=== PATIENT | female | born 1980 | race Hispanic/Latino ===

== ENCOUNTER 2019-08-18 10:40 | Emergency (ER) | payer MEDICARE ==
[~2019-08-18] VITALS: Ht 157.5 cm; Wt 65.8 kg
[~2019-08-18 10:40] MED LIST: CYCLOBENZAPRINE10 MG PO; Clobetasol 0.05% Cream 45GMS TOP; DOXYCLINE PO; DOXYCYCLINE HY100 MG PO; FLAGYL250 MG PO; KEPPRA500 MG PO; LEVAQUIN500 MG PO; LIBRAX CAPSULE1 EACH PO; PREDNISONE20 MG PO; PROMETHAZINE12.5 M1 PO; SULFAMETHOXAZO1 EAC1 PO; TYLENOL WITH C1 EACH PO; ULTRAM50 MG PO; VSL#3 CAPSULE1 EACH PO; ZOFRAN8 MG PO
[2019-08-18] MEDS ORDERED: SODIUM CHLORIDE 0.9% 1000ML 1,000 ML IV STA (11:03)
[2019-08-18] MEDS ORDERED: ONDANSETRON HCL INJ 2MG/ML 2ML 2 MG/ML VIAL IV STA (11:03)
[2019-08-18] MEDS ORDERED: MORPHINE SULFATE INJ 4 MG/ML INJ 1ML IV STA (11:56)
--- OUTSIDE RECORDS SUMMARY | 2019-08-18 12:10 | XMS REPORT ---
[facility] Address Unknown Phone Unavailable Care Team Providers Care Database Engineer Name Role Phone JOSE ROBERTO MCCANN Unavailable Unavailable ACRLOS PHILLIP Unavailable Unavailable JEAN MARIE SERRANO Unavailable Unavailable Carrington MICHEL Unavailable Unavailable PHAM RETANA Unavailable Unavailable Isaruo YANG Unavailable Unavailable OMER MONAE Unavailable Unavailable STORM LAM Unavailable Unavailable DUDLEY HAMPTON Unavailable Unavailable Jose ARNOLD Unavailable Unavailable Patrick PRESTON Unavailable Unavailable ANA M, ARIF Unavailable Unavailable Payers Payer Name Policy Type Policy Number Effective Date Expiration Date Problems This patient has no known problems. Allergies, Adverse Reactions, Alerts Allergy Name Allergy Type Status Severity Reaction(s) Onset Date Inactive Date Treating Clinician Comments mesalamine DA Active MO 2015-05-05 00:00:00 Medications This patient has no known medications. Results Test Description Test Time Test Comments Text Results Atomic Results Result Comments DUODENUM,BIOPSY 2019-01-23 15:50:00 RUN DATE: 01/23/19 [place] - [facility] PAGE 1 RUN TIME: 1550 Specimen Inquiry RUN USER: INTERFACE PATIENT: TANYA SANDERSON LOC: ALEX U #: [id number] AGE/SX: 38/F ROOM: [facility] RE01/17/19REG DR: Anup Wagoner MD : 81 BED: A DIS: 01/22/19 STATUS: DIS IN TLOC: SPEC #: [id number] RECD: 01/20/19 STATUS: [facility] RE #: [id number] JAYLAN: 01/20/19 DR: Andrew Hassan MD ENTERED: 01/20/195 SP TYPE: BX DUODEN OTHR DR: Self Referred Joann Larson MDORDERED: GROSS COPIES TO: Self Referred Andrew Hassan MD [address] [place] [address] Joann Larson MD [address] [place] [address] PROCEDURES: GROSS (01/21/19-1300) TISSUES: 1. DUODENUM, NOS - COLD BX 2. GASTRIC CORPUS - COLD BX 3. ILEUM, NOS - TERMINAL COLD BX 4. RECTUM, NOS - COLD BX CLINICAL HISTORY COLLECTION DATE: 01/20/19 ANEMIA COMMENT A giemsa stain was prepared on the second spe [facility] and is negative for Helicobacter Pylori. The control stains appropriately. An immunostain for Helicobacter Pylori was prepared at [facility] and interpreted at [facility]. The control stains appropriately. The specimen is negative for Helicobacter Pylori by immunostain. FINAL DIAGNOSIS Duodenum, biopsy: DUODENAL MUCOSA, NO PATHOLOGIC ALTERATION Gastric biopsy: CHRONIC ACTIVE GASTRITIS CONTINUED ON NEXT PAGE RU N DATE: 01/23/19 [place] - Lab PAGE 2 RUN TIME: 1550 Specimen Inquiry RUN USER: INTERFACE SPEC #: [id number] PATIENT: TANYA SANDERSON #[id number] (Continued) FINAL DIAGNOSIS (Continued) NO INTESTINAL METAPLASIA SEEN NEGATIVE FOR HELICOBACTER PYLORI NEGATIVE FOR MALIGNANCY Terminal ileum, biopsy: SMALL INTESTINAL MUCOSA, NO PATHOLOGIC ALTERATION Rectum, biopsy: GRANULATION TISSUE WITH ACUTE AND CHRONIC INFLAMMATION, COMPATIBLE WITH ULCER SITE NO MUCOSA IDENTIFIED NEGATIVE FOR MALIGNANCY DMW/sm D (4) [id number], [id number], [id number] MACROSCOPIC The first specimen is received in formalin, labeled with the patient's name, identified as "duodenum cold bx", and consists of munoz-pink biopsy tissue measuring 0.4 cm in aggregate, submit robert as (1). The second specimen is received in formalin, labeled with the patient's name, identified as "gastric cold bx", and consists of light pink- munoz biopsy tissue measuring 0.35 cm in aggregate, submitted as (2) for H E and Giemsa stains. The third specimen is received in formalin, labeled with the patient's name, identified as "terminal ileum cold bx", and consists of munoz biopsy tissue measuring 0.45 cm in aggregate, submitted as (3). The fourth specimen is received in formalin, labeled with the patient's name, identified as "rectum cold bx", and consists of pink-munoz biopsy tissue measuring 0.35 cm in aggregate, submitted as (4). GROSS PERFORMED AT [facility] [address] [place] [address] [id number] [phone])[phone] MICROSCOPIC All of the stains, including any controls performed, stain appropriately. MICROSCOPIC PERFORMED AT [facility] CONTINUED ON NEXT PAGE RUN DATE: 01/23/19 [place] - Lab PAGE 3 RUN TIME: 1550 Specimen Inquiry RUN USER: INTERFACE SPEC #: [id number] PATIENT: TANYA SANDERSON #[id number] (Continued) MICROSCOPIC (Continued) [facility] [address] [place] [address] [phone])[phone] PERFORM[address] SITE Diagnosis performed at: [facility], [place] [place] [address] Signed SIGNATURE ON FILE Leticia Smith MD 01/23/19 3563 END OF REPORT CELIAC DISEASE PANEL 2019-01-23 14:13:00 IMMUNOGLOBULIN A (test code=IGA) 281 mg/dL 87-352 Performed At: [facility] [id number] Torre MD Ph:[phone] At: [facility] [id number] Mccurdy MD Ph:[phone] TISSUE TRANSGLUTAMINASE IGA (test code=TTGIGAAB) <2 U/mL 0-3 Negative 0 - 3 Weak Positive 4 - 10 Positive >10 Tissue Transglutaminase (tTG) has been identified as the endomysial antigen. Studies have demonstr- ated that endomysial IgA antibodies have over 99% specificity for gluten sensitive enteropathy. AB ENDOMYSIAL IGA (test code=ENDOMAAB) Negative Negative TISSUE TRANSGLUTAMINASE IGG (test code=TTGIGGAB) <2 U/mL 0-5 Negative 0 - 5 Weak Positive 6 - 9 Positive >9 GLIADIN ANTIBODY, IGG (test code=GLIAB) 6 units 0-19 Negative 0 - 19 Weak Positive 20 - 30 Moderate to Strong Positive >30 GLIADIN ANTIBODY, IGA (test code=GLIAABA) 4 units 0-19 Negative 0 - 19 Weak Positive 20 - 30 Moderate to Strong Positive >30 PER RN LAILA RUGGIERO LATER [email or web address] 01/19/19 0629CBC W/AUTO [id number] 13:51:00* Test Item Value Reference Range Comments WHITE BLOOD CELL (test code=WBC) 7.1 K/mm3 4.5-12.5 RED BLOOD CELL (test code=RBC) 4.57 mill/mm3 3.7-5.2 HEMOGLOBIN (test code=HGB) 9.1 gram/dL 11.5-15.5 HEMATOCRIT (test code=HCT) 33.4 % 36.0-46.0 MEAN CELL VOLUME (test code=MCV) 73.1 fL 80-98 MEAN CELL HGB (test code=MCH) 19.9 picogram 27.0-33.0 MEAN CELL HGB CONCETRATION (test code=MCHC) 27.2 gram/dL 33.0-36.0 RED CELL DISTRIBUTION WIDTH (test code=RDW) TEST NOT PERFORMED % 11.6-16.2 RED CELL DISTRIBUTION WIDTH SD (test code=RDW-SD) TEST NOT PERFORMED fL 37.0-51.0 PLATELET COUNT (test code=PLT) 317 K/mm3 150-450 MEAN PLATELET VOLUME (test code=MPV) 10.3 fL 6.7-11.0 NEUTROPHIL % (test code=NT%) 64.2 % 39.0-69.0 IMMATURE GRANULOCYTE % (test code=IG%) 0.3 % 0.0-5.0 LYMPHOCYTE % (test code=LY%) 15.4 % 25.0-55.0 MONOCYTE % (test code=MO%) 11.3 % 0.0-10.0 EOSINOPHIL % (test code=EO%) 7.8 % 0.0-5.0 BASOPHIL % (test code=BA%) 1.0 % 0.0-1.0 NUCLEATED RBC % (test code=NRBC%) 0.0 % 0-0 NEUTROPHIL # (test code=NT#) 4.53 K/mm3 1.8-7.7 IMMATURE GRANULOCYTE # (test code=IG#) 0.02 x10 3/uL 0-0.03 LYMPHOCYTE # (test code=LY#) 1.09 K/mm3 1.0-5.0 MONOCYTE # (test code=MO#) 0.80 K/mm3 0-0.8 EOSINOPHIL # (test code=EO#) 0.55 K/mm3 0.0-0.5 BASOPHIL # (test code=BA#) 0.07 K/mm3 0.0-0.2 NUCLEATED RBC # (test code=NRBC#) 0.00 K/mm3 0.0-0.1 MANUAL DIFF REQUIRED (test code=MDIFF) NO, ONLY SCAN NEEDED DIFFERENTIAL [id number] 13:51:00* Test Item Value Reference Range Comments STAIN ACCEPTABILITY (test code=STN ACCEPTABLE) STAIN ACCEPTABLE POLYCHROMASIA (test code=POLC) 3+ HYPOCHROMIA (test code=HYPO) 1+ POIKILOCYTOSIS (test code=POIK) 1+ ANISOCYTOSIS (test code=ANISO) 2+ MICROCYTOSIS (test code=MICR) 1+ ELLIPTOCYTES (test code=ELL) 1+ PLATELET ESTIMATE (test code=PLTEST) ADEQUATE PLATELET MORPHOLOGY (test code=PLTMORPH) SIZE VARIABLE CBC W/AUTO [id number] 12:21:00* Test Item Value Reference Range Comments WHITE BLOOD CELL (test code=WBC) 7.1 K/mm3 4.5-12.5 RED BLOOD CELL (test code=RBC) 4.57 mill/mm3 3.7-5.2 HEMOGLOBIN (test code=HGB) 9.1 gram/dL 11.5-15.5 HEMATOCRIT (test code=HCT) 33.4 % 36.0-46.0 MEAN CELL VOLUME (test code=MCV) 73.1 fL 80-98 MEAN CELL HGB (test code=MCH) 19.9 picogram 27.0-33.0 MEAN CELL HGB CONCETRATION (test code=MCHC) 27.2 gram/dL 33.0-36.0 RED CELL DISTRIBUTION WIDTH (test code=RDW) TEST NOT PERFORMED % 11.6-16.2 RED CELL DISTRIBUTION WIDTH SD (test code=RDW-SD) TEST NOT PERFORMED fL 37.0-51.0 PLATELET COUNT (test code=PLT) 317 K/mm3 150-450 MEAN PLATELET VOLUME (test code=MPV) 10.3 fL 6.7-11.0 NEUTROPHIL % (test code=NT%) 64.2 % 39.0-69.0 IMMATURE GRANULOCYTE % (test code=IG%) 0.3 % 0.0-5.0 LYMPHOCYTE % (test code=LY%) 15.4 % 25.0-55.0 MONOCYTE % (test code=MO%) 11.3 % 0.0-10.0 EOSINOPHIL % (test code=EO%) 7.8 % 0.0-5.0 BASOPHIL % (test code=BA%) 1.0 % 0.0-1.0 NUCLEATED RBC % (test code=NRBC%) 0.0 % 0-0 NEUTROPHIL # (test code=NT#) 4.53 K/mm3 1.8-7.7 IMMATURE GRANULOCYTE # (test code=IG#) 0.02 x10 3/uL 0-0.03 LYMPHOCYTE # (test code=LY#) 1.09 K/mm3 1.0-5.0 MONOCYTE # (test code=MO#) 0.80 K/mm3 0-0.8 EOSINOPHIL # (test code=EO#) 0.55 K/mm3 0.0-0.5 BASOPHIL # (test code=BA#) 0.07 K/mm3 0.0-0.2 NUCLEATED RBC # (test code=NRBC#) 0.00 K/mm3 0.0-0.1 MANUAL DIFF REQUIRED (test code=MDIFF) NO, ONLY SCAN NEEDED DIFFERENTIAL [id number] 12:21:00* Test Item Value Reference Range Comments STAIN ACCEPTABILITY (test code=STN ACCEPTABLE) CABOT RINGS (test code=CAB) MORPHOLOGY COMMENT (test code=MOC) PLATELET ESTIMATE (test code=PLTEST) PLATELET MORPHOLOGY (test code=PLTMORPH) CBC W/AUTO [id number] 12:21:00* Test Item Value Reference Range Comments WHITE BLOOD CELL (test code=WBC) 7.1 K/mm3 4.5-12.5 RED BLOOD CELL (test code=RBC) 4.57 mill/mm3 3.7-5.2 HEMOGLOBIN (test code=HGB) 9.1 gram/dL 11.5-15.5 HEMATOCRIT (test code=HCT) 33.4 % 36.0-46.0 MEAN CELL VOLUME (test code=MCV) 73.1 fL 80-98 MEAN CELL HGB (test code=MCH) 19.9 picogram 27.0-33.0 MEAN CELL HGB CONCETRATION (test code=MCHC) 27.2 gram/dL 33.0-36.0 RED CELL DISTRIBUTION WIDTH (test code=RDW) TEST NOT PERFORMED % 11.6-16.2 RED CELL DISTRIBUTION WIDTH SD (test code=RDW-SD) TEST NOT PERFORMED fL 37.0-51.0 PLATELET COUNT (test code=PLT) 317 K/mm3 150-450 MEAN PLATELET VOLUME (test code=MPV) 10.3 fL 6.7-11.0 NEUTROPHIL % (test code=NT%) 64.2 % 39.0-69.0 IMMATURE GRANULOCYTE % (test code=IG%) 0.3 % 0.0-5.0 LYMPHOCYTE % (test code=LY%) 15.4 % 25.0-55.0 MONOCYTE % (test code=MO%) 11.3 % 0.0-10.0 EOSINOPHIL % (test code=EO%) 7.8 % 0.0-5.0 BASOPHIL % (test code=BA%) 1.0 % 0.0-1.0 NUCLEATED RBC % (test code=NRBC%) 0.0 % 0-0 NEUTROPHIL # (test code=NT#) 4.53 K/mm3 1.8-7.7 IMMATURE GRANULOCYTE # (test code=IG#) 0.02 x10 3/uL 0-0.03 LYMPHOCYTE # (test code=LY#) 1.09 K/mm3 1.0-5.0 MONOCYTE # (test code=MO#) 0.80 K/mm3 0-0.8 EOSINOPHIL # (test code=EO#) 0.55 K/mm3 0.0-0.5 BASOPHIL # (test code=BA#) 0.07 K/mm3 0.0-0.2 NUCLEATED RBC # (test code=NRBC#) 0.00 K/mm3 0.0-0.1 MANUAL DIFF REQUIRED (test code=MDIFF) NO, ONLY SCAN NEEDED DIFFERENTIAL [id number] 12:21:00* Test Item Value Reference Range Comments STAIN ACCEPTABILITY (test code=STN ACCEPTABLE) CABOT RINGS (test code=CAB) MORPHOLOGY COMMENT (test code=MOC) PLATELET ESTIMATE (test code=PLTEST) PLATELET MORPHOLOGY (test code=PLTMORPH) CBC W/AUTO [id number] 12:21:00* Test Item Value Reference Range Comments WHITE BLOOD CELL (test code=WBC) 7.1 K/mm3 4.5-12.5 RED BLOOD CELL (test code=RBC) 4.57 mill/mm3 3.7-5.2 HEMOGLOBIN (test code=HGB) 9.1 gram/dL 11.5-15.5 HEMATOCRIT (test code=HCT) 33.4 % 36.0-46.0 MEAN CELL VOLUME (test code=MCV) 73.1 fL 80-98 MEAN CELL HGB (test code=MCH) 19.9 picogram 27.0-33.0 MEAN CELL HGB CONCETRATION (test code=MCHC) 27.2 gram/dL 33.0-36.0 RED CELL DISTRIBUTION WIDTH (test code=RDW) TEST NOT PERFORMED % 11.6-16.2 RED CELL DISTRIBUTION WIDTH SD (test code=RDW-SD) TEST NOT PERFORMED fL 37.0-51.0 PLATELET COUNT (test code=PLT) 317 K/mm3 150-450 MEAN PLATELET VOLUME (test code=MPV) 10.3 fL 6.7-11.0 NEUTROPHIL % (test code=NT%) 64.2 % 39.0-69.0 IMMATURE GRANULOCYTE % (test code=IG%) 0.3 % 0.0-5.0 LYMPHOCYTE % (test code=LY%) 15.4 % 25.0-55.0 MONOCYTE % (test code=MO%) 11.3 % 0.0-10.0 EOSINOPHIL % (test code=EO%) 7.8 % 0.0-5.0 BASOPHIL % (test code=BA%) 1.0 % 0.0-1.0 NUCLEATED RBC % (test code=NRBC%) 0.0 % 0-0 NEUTROPHIL # (test code=NT#) 4.53 K/mm3 1.8-7.7 IMMATURE GRANULOCYTE # (test code=IG#) 0.02 x10 3/uL 0-0.03 LYMPHOCYTE # (test code=LY#) 1.09 K/mm3 1.0-5.0 MONOCYTE # (test code=MO#) 0.80 K/mm3 0-0.8 EOSINOPHIL # (test code=EO#) 0.55 K/mm3 0.0-0.5 BASOPHIL # (test code=BA#) 0.07 K/mm3 0.0-0.2 NUCLEATED RBC # (test code=NRBC#) 0.00 K/mm3 0.0-0.1 MANUAL DIFF REQUIRED (test code=MDIFF) NO, ONLY SCAN NEEDED DIFFERENTIAL [id number] 12:21:00* Test Item Value Reference Range Comments STAIN ACCEPTABILITY (test code=STN ACCEPTABLE) MORPHOLOGY COMMENT (test code=MOC) PLATELET ESTIMATE (test code=PLTEST) PLATELET MORPHOLOGY (test code=PLTMORPH) CBC W/AUTO [id number] 12:21:00* Test Item Value Reference Range Comments WHITE BLOOD CELL (test code=WBC) 7.1 K/mm3 4.5-12.5 RED BLOOD CELL (test code=RBC) 4.57 mill/mm3 3.7-5.2 HEMOGLOBIN (test code=HGB) 9.1 gram/dL 11.5-15.5 HEMATOCRIT (test code=HCT) 33.4 % 36.0-46.0 MEAN CELL VOLUME (test code=MCV) 73.1 fL 80-98 MEAN CELL HGB (test code=MCH) 19.9 picogram 27.0-33.0 MEAN CELL HGB CONCETRATION (test code=MCHC) 27.2 gram/dL 33.0-36.0 RED CELL DISTRIBUTION WIDTH (test code=RDW) TEST NOT PERFORMED % 11.6-16.2 RED CELL DISTRIBUTION WIDTH SD (test code=RDW-SD) TEST NOT PERFORMED fL 37.0-51.0 PLATELET COUNT (test code=PLT) 317 K/mm3 150-450 MEAN PLATELET VOLUME (test code=MPV) 10.3 fL 6.7-11.0 NEUTROPHIL % (test code=NT%) 64.2 % 39.0-69.0 IMMATURE GRANULOCYTE % (test code=IG%) 0.3 % 0.0-5.0 LYMPHOCYTE % (test code=LY%) 15.4 % 25.0-55.0 MONOCYTE % (test code=MO%) 11.3 % 0.0-10.0 EOSINOPHIL % (test code=EO%) 7.8 % 0.0-5.0 BASOPHIL % (test code=BA%) 1.0 % 0.0-1.0 NUCLEATED RBC % (test code=NRBC%) 0.0 % 0-0 NEUTROPHIL # (test code=NT#) 4.53 K/mm3 1.8-7.7 IMMATURE GRANULOCYTE # (test code=IG#) 0.02 x10 3/uL 0-0.03 LYMPHOCYTE # (test code=LY#) 1.09 K/mm3 1.0-5.0 MONOCYTE # (test code=MO#) 0.80 K/mm3 0-0.8 EOSINOPHIL # (test code=EO#) 0.55 K/mm3 0.0-0.5 BASOPHIL # (test code=BA#) 0.07 K/mm3 0.0-0.2 NUCLEATED RBC # (test code=NRBC#) 0.00 K/mm3 0.0-0.1 MANUAL DIFF REQUIRED (test code=MDIFF) NO, ONLY SCAN NEEDED DIFFERENTIAL [id number] 12:21:00* Test Item Value Reference Range Comments STAIN ACCEPTABILITY (test code=STN ACCEPTABLE) CABOT RINGS (test code=CAB) MORPHOLOGY COMMENT (test code=MOC) PLATELET ESTIMATE (test code=PLTEST) PLATELET MORPHOLOGY (test code=PLTMORPH) CBC W/AUTO [id number] 10:03:00* Test Item Value Reference Range Comments WHITE BLOOD CELL (test code=WBC) 8.2 K/mm3 4.5-12.5 RED BLOOD CELL (test code=RBC) 4.33 mill/mm3 3.7-5.2 HEMOGLOBIN (test code=HGB) 8.5 gram/dL 11.5-15.5 HEMATOCRIT (test code=HCT) 31.4 % 36.0-46.0 MEAN CELL VOLUME (test code=MCV) 72.5 fL 80-98 MEAN CELL HGB (test code=MCH) 19.6 picogram 27.0-33.0 MEAN CELL HGB CONCETRATION (test code=MCHC) 27.1 gram/dL 33.0-36.0 RED CELL DISTRIBUTION WIDTH (test code=RDW) TEST NOT PERFORMED % 11.6-16.2 RED CELL DISTRIBUTION WIDTH SD (test code=RDW-SD) TEST NOT PERFORMED fL 37.0-51.0 PLATELET COUNT (test code=PLT) 326 K/mm3 150-450 MEAN PLATELET VOLUME (test code=MPV) 9.8 fL 6.7-11.0 NEUTROPHIL % (test code=NT%) 68.3 % 39.0-69.0 IMMATURE GRANULOCYTE % (test code=IG%) 0.4 % 0.0-5.0 LYMPHOCYTE % (test code=LY%) 14.5 % 25.0-55.0 MONOCYTE % (test code=MO%) 9.6 % 0.0-10.0 EOSINOPHIL % (test code=EO%) 6.3 % 0.0-5.0 BASOPHIL % (test code=BA%) 0.9 % 0.0-1.0 NUCLEATED RBC % (test code=NRBC%) 0.0 % 0-0 NEUTROPHIL # (test code=NT#) 5.59 K/mm3 1.8-7.7 IMMATURE GRANULOCYTE # (test code=IG#) 0.03 x10 3/uL 0-0.03 LYMPHOCYTE # (test code=LY#) 1.19 K/mm3 1.0-5.0 MONOCYTE # (test code=MO#) 0.79 K/mm3 0-0.8 EOSINOPHIL # (test code=EO#) 0.52 K/mm3 0.0-0.5 BASOPHIL # (test code=BA#) 0.07 K/mm3 0.0-0.2 NUCLEATED RBC # (test code=NRBC#) 0.00 K/mm3 0.0-0.1 MANUAL DIFF REQUIRED (test code=MDIFF) NO, ONLY SCAN NEEDED DIFFERENTIAL [id number] 10:03:00* Test Item Value Reference Range Comments STAIN ACCEPTABILITY (test code=STN ACCEPTABLE) STAIN ACCEPTABLE POIKILOCYTOSIS (test code=POIK) 2+ ANISOCYTOSIS (test code=ANISO) 1+ MICROCYTOSIS (test code=MICR) 1+ TEAR DROP CELLS (test code=TEAR) 1+ ELLIPTOCYTES (test code=ELL) 1+ PLATELET ESTIMATE (test code=PLTEST) ADEQUATE PLATELET MORPHOLOGY (test code=PLTMORPH) APPEAR LARGE COMPREHENSIVE METABOLIC [id number] 09:59:00* Test Item Value Reference Range Comments SODIUM (test code=NA) 138 mmol/L 136-145 POTASSIUM (test code=K) 3.8 mmol/L 3.5-5.1 CHLORIDE (test code=CL) 107.0 mmol/L 98-107 CARBON DIOXIDE (test code=CO2) 24.0 mmol/L 21-32 ANION GAP (test code=GAP) 10.8 10-20 GLUCOSE (test code=GLU) 92 mg/dL 74-106 BLOOD UREA NITROGEN (test code=BUN) 7 mg/dL 7-18 GLOMERULAR FILTRATION RATE (test code=GFR) > 60 mL/min >=60 Estimated GFR by using Modified MDRD formula.Chronic kidney disease is defined as either kidney damageor GFR <60 mL/min/1.73 m2 for >3 months. CREATININE (test code=CREAT) 0.70 mg/dL 0.55-1.02 Note change in reference range due to change in reagent. BUN/CREATININE RATIO (test code=BUN/CREA) 10.0 10-20 TOTAL PROTEIN (test code=PROT) 7.3 gram/dL 6.4-8.2 ALBUMIN (test code=ALB) 3.0 g/dL 3.4-5.0 GLOBULIN (test code=GLOB) 4.3 gram/dL 2.7-4.2 ALBUMIN/GLOBULIN RATIO (test code=A/G) 0.7 0.75-1.50 CALCIUM (test code=CA) 8.5 mg/dL 8.5-10.1 BILIRUBIN TOTAL (test code=BILT) 0.30 mg/dL 0.0-1.0 SGOT/AST (test code=AST) 13 IUnit/L 15-37 SGPT/ALT (test code=ALT) 10 IUnit/L 12-78 ALKALINE PHOSPHATASE TOTAL (test code=ALKP) 91 IUnit/L 45-117 Note change in reference range due to change in reagent. FE W/TOTAL IRON BINDING CAP.2019-01-21 09:59:00* Test Item Value Reference Range Comments SERUM IRON (test code=IRON) 15 ug/dL 50-175 TOTAL IRON BINDING CAPACITY (test code=TIBC) 416 mcg/dL 250-450 IRON SATURATION (test code=FESAT) 3.61 % 13-45 [id number] 09:59:00* Test Item Value Reference Range Comments FERRITIN (test code=NADINE) 4 ng/mL 8-388 COMPREHENSIVE METABOLIC [id number] 09:46:00* Test Item Value Reference Range Comments SODIUM (test code=NA) 138 mmol/L 136-145 POTASSIUM (test code=K) 3.8 mmol/L 3.5-5.1 CHLORIDE (test code=CL) 107.0 mmol/L 98-107 CARBON DIOXIDE (test code=CO2) mmol/L 21-32 ANION GAP (test code=GAP) 10-20 GLUCOSE (test code=GLU) mg/dL 74-106 BLOOD UREA NITROGEN (test code=BUN) mg/dL 7-18 GLOMERULAR FILTRATION RATE (test code=GFR) mL/min >=60 CREATININE (test code=CREAT) mg/dL 0.55-1.02 BUN/CREATININE RATIO (test code=BUN/CREA) 10-20 TOTAL PROTEIN (test code=PROT) gram/dL 6.4-8.2 ALBUMIN (test code=ALB) g/dL 3.4-5.0 GLOBULIN (test code=GLOB) gram/dL 2.7-4.2 ALBUMIN/GLOBULIN RATIO (test code=A/G) 0.75-1.50 CALCIUM (test code=CA) mg/dL 8.5-10.1 BILIRUBIN TOTAL (test code=BILT) mg/dL 0.0-1.0 SGOT/AST (test code=AST) IUnit/L 15-37 SGPT/ALT (test code=ALT) IUnit/L 12-78 ALKALINE PHOSPHATASE TOTAL (test code=ALKP) IUnit/L 45-117 FE W/TOTAL IRON BINDING CAP.2019-01-21 09:46:00* Test Item Value Reference Range Comments SERUM IRON (test code=IRON) ug/dL 50-175 TOTAL IRON BINDING CAPACITY (test code=TIBC) mcg/dL 250-450 IRON SATURATION (test code=FESAT) % 13-45 [id number] 09:46:00* Test Item Value Reference Range Comments FERRITIN (test code=NADINE) ng/mL 8-388 CBC W/AUTO [id number] 09:31:00* Test Item Value Reference Range Comments WHITE BLOOD CELL (test code=WBC) 8.2 K/mm3 4.5-12.5 RED BLOOD CELL (test code=RBC) 4.33 mill/mm3 3.7-5.2 HEMOGLOBIN (test code=HGB) 8.5 gram/dL 11.5-15.5 HEMATOCRIT (test code=HCT) 31.4 % 36.0-46.0 MEAN CELL VOLUME (test code=MCV) 72.5 fL 80-98 MEAN CELL HGB (test code=MCH) 19.6 picogram 27.0-33.0 MEAN CELL HGB CONCETRATION (test code=MCHC) 27.1 gram/dL 33.0-36.0 RED CELL DISTRIBUTION WIDTH (test code=RDW) TEST NOT PERFORMED % 11.6-16.2 RED CELL DISTRIBUTION WIDTH SD (test code=RDW-SD) TEST NOT PERFORMED fL 37.0-51.0 PLATELET COUNT (test code=PLT) 326 K/mm3 150-450 MEAN PLATELET VOLUME (test code=MPV) 9.8 fL 6.7-11.0 NEUTROPHIL % (test code=NT%) 68.3 % 39.0-69.0 IMMATURE GRANULOCYTE % (test code=IG%) 0.4 % 0.0-5.0 LYMPHOCYTE % (test code=LY%) 14.5 % 25.0-55.0 MONOCYTE % (test code=MO%) 9.6 % 0.0-10.0 EOSINOPHIL % (test code=EO%) 6.3 % 0.0-5.0 BASOPHIL % (test code=BA%) 0.9 % 0.0-1.0 NUCLEATED RBC % (test code=NRBC%) 0.0 % 0-0 NEUTROPHIL # (test code=NT#) 5.59 K/mm3 1.8-7.7 IMMATURE GRANULOCYTE # (test code=IG#) 0.03 x10 3/uL 0-0.03 LYMPHOCYTE # (test code=LY#) 1.19 K/mm3 1.0-5.0 MONOCYTE # (test code=MO#) 0.79 K/mm3 0-0.8 EOSINOPHIL # (test code=EO#) 0.52 K/mm3 0.0-0.5 BASOPHIL # (test code=BA#) 0.07 K/mm3 0.0-0.2 NUCLEATED RBC # (test code=NRBC#) 0.00 K/mm3 0.0-0.1 MANUAL DIFF REQUIRED (test code=MDIFF) NO, ONLY SCAN NEEDED DIFFERENTIAL [id number] 09:31:00* Test Item Value Reference Range Comments STAIN ACCEPTABILITY (test code=STN ACCEPTABLE) CABOT RINGS (test code=CAB) MORPHOLOGY COMMENT (test code=MOC) PLATELET ESTIMATE (test code=PLTEST) PLATELET MORPHOLOGY (test code=PLTMORPH) CBC W/AUTO [id number] 09:31:00* Test Item Value Reference Range Comments WHITE BLOOD CELL (test code=WBC) 8.2 K/mm3 4.5-12.5 RED BLOOD CELL (test code=RBC) 4.33 mill/mm3 3.7-5.2 HEMOGLOBIN (test code=HGB) 8.5 gram/dL 11.5-15.5 HEMATOCRIT (test code=HCT) 31.4 % 36.0-46.0 MEAN CELL VOLUME (test code=MCV) 72.5 fL 80-98 MEAN CELL HGB (test code=MCH) 19.6 picogram 27.0-33.0 MEAN CELL HGB CONCETRATION (test code=MCHC) 27.1 gram/dL 33.0-36.0 RED CELL DISTRIBUTION WIDTH (test code=RDW) TEST NOT PERFORMED % 11.6-16.2 RED CELL DISTRIBUTION WIDTH SD (test code=RDW-SD) TEST NOT PERFORMED fL 37.0-51.0 PLATELET COUNT (test code=PLT) 326 K/mm3 150-450 MEAN PLATELET VOLUME (test code=MPV) 9.8 fL 6.7-11.0 NEUTROPHIL % (test code=NT%) 68.3 % 39.0-69.0 IMMATURE GRANULOCYTE % (test code=IG%) 0.4 % 0.0-5.0 LYMPHOCYTE % (test code=LY%) 14.5 % 25.0-55.0 MONOCYTE % (test code=MO%) 9.6 % 0.0-10.0 EOSINOPHIL % (test code=EO%) 6.3 % 0.0-5.0 BASOPHIL % (test code=BA%) 0.9 % 0.0-1.0 NUCLEATED RBC % (test code=NRBC%) 0.0 % 0-0 NEUTROPHIL # (test code=NT#) 5.59 K/mm3 1.8-7.7 IMMATURE GRANULOCYTE # (test code=IG#) 0.03 x10 3/uL 0-0.03 LYMPHOCYTE # (test code=LY#) 1.19 K/mm3 1.0-5.0 MONOCYTE # (test code=MO#) 0.79 K/mm3 0-0.8 EOSINOPHIL # (test code=EO#) 0.52 K/mm3 0.0-0.5 BASOPHIL # (test code=BA#) 0.07 K/mm3 0.0-0.2 NUCLEATED RBC # (test code=NRBC#) 0.00 K/mm3 0.0-0.1 MANUAL DIFF REQUIRED (test code=MDIFF) NO, ONLY SCAN NEEDED DIFFERENTIAL [id number] 09:31:00* Test Item Value Reference Range Comments STAIN ACCEPTABILITY (test code=STN ACCEPTABLE) CABOT RINGS (test code=CAB) MORPHOLOGY COMMENT (test code=MOC) PLATELET ESTIMATE (test code=PLTEST) PLATELET MORPHOLOGY (test code=PLTMORPH) CBC W/AUTO [id number] 09:31:00* Test Item Value Reference Range Comments WHITE BLOOD CELL (test code=WBC) 8.2 K/mm3 4.5-12.5 RED BLOOD CELL (test code=RBC) 4.33 mill/mm3 3.7-5.2 HEMOGLOBIN (test code=HGB) 8.5 gram/dL 11.5-15.5 HEMATOCRIT (test code=HCT) 31.4 % 36.0-46.0 MEAN CELL VOLUME (test code=MCV) 72.5 fL 80-98 MEAN CELL HGB (test code=MCH) 19.6 picogram 27.0-33.0 MEAN CELL HGB CONCETRATION (test code=MCHC) 27.1 gram/dL 33.0-36.0 RED CELL DISTRIBUTION WIDTH (test code=RDW) TEST NOT PERFORMED % 11.6-16.2 RED CELL DISTRIBUTION WIDTH SD (test code=RDW-SD) TEST NOT PERFORMED fL 37.0-51.0 PLATELET COUNT (test code=PLT) 326 K/mm3 150-450 MEAN PLATELET VOLUME (test code=MPV) 9.8 fL 6.7-11.0 NEUTROPHIL % (test code=NT%) 68.3 % 39.0-69.0 IMMATURE GRANULOCYTE % (test code=IG%) 0.4 % 0.0-5.0 LYMPHOCYTE % (test code=LY%) 14.5 % 25.0-55.0 MONOCYTE % (test code=MO%) 9.6 % 0.0-10.0 EOSINOPHIL % (test code=EO%) 6.3 % 0.0-5.0 BASOPHIL % (test code=BA%) 0.9 % 0.0-1.0 NUCLEATED RBC % (test code=NRBC%) 0.0 % 0-0 NEUTROPHIL # (test code=NT#) 5.59 K/mm3 1.8-7.7 IMMATURE GRANULOCYTE # (test code=IG#) 0.03 x10 3/uL 0-0.03 LYMPHOCYTE # (test code=LY#) 1.19 K/mm3 1.0-5.0 MONOCYTE # (test code=MO#) 0.79 K/mm3 0-0.8 EOSINOPHIL # (test code=EO#) 0.52 K/mm3 0.0-0.5 BASOPHIL # (test code=BA#) 0.07 K/mm3 0.0-0.2 NUCLEATED RBC # (test code=NRBC#) 0.00 K/mm3 0.0-0.1 MANUAL DIFF REQUIRED (test code=MDIFF) NO, ONLY SCAN NEEDED DIFFERENTIAL [id number] 09:31:00* Test Item Value Reference Range Comments STAIN ACCEPTABILITY (test code=STN ACCEPTABLE) MORPHOLOGY COMMENT (test code=MOC) PLATELET ESTIMATE (test code=PLTEST) PLATELET MORPHOLOGY (test code=PLTMORPH) CBC W/AUTO [id number] 09:31:00* Test Item Value Reference Range Comments WHITE BLOOD CELL (test code=WBC) 8.2 K/mm3 4.5-12.5 RED BLOOD CELL (test code=RBC) 4.33 mill/mm3 3.7-5.2 HEMOGLOBIN (test code=HGB) 8.5 gram/dL 11.5-15.5 HEMATOCRIT (test code=HCT) 31.4 % 36.0-46.0 MEAN CELL VOLUME (test code=MCV) 72.5 fL 80-98 MEAN CELL HGB (test code=MCH) 19.6 picogram 27.0-33.0 MEAN CELL HGB CONCETRATION (test code=MCHC) 27.1 gram/dL 33.0-36.0 RED CELL DISTRIBUTION WIDTH (test code=RDW) TEST NOT PERFORMED % 11.6-16.2 RED CELL DISTRIBUTION WIDTH SD (test code=RDW-SD) TEST NOT PERFORMED fL 37.0-51.0 PLATELET COUNT (test code=PLT) 326 K/mm3 150-450 MEAN PLATELET VOLUME (test code=MPV) 9.8 fL 6.7-11.0 NEUTROPHIL % (test code=NT%) 68.3 % 39.0-69.0 IMMATURE GRANULOCYTE % (test code=IG%) 0.4 % 0.0-5.0 LYMPHOCYTE % (test code=LY%) 14.5 % 25.0-55.0 MONOCYTE % (test code=MO%) 9.6 % 0.0-10.0 EOSINOPHIL % (test code=EO%) 6.3 % 0.0-5.0 BASOPHIL % (test code=BA%) 0.9 % 0.0-1.0 NUCLEATED RBC % (test code=NRBC%) 0.0 % 0-0 NEUTROPHIL # (test code=NT#) 5.59 K/mm3 1.8-7.7 IMMATURE GRANULOCYTE # (test code=IG#) 0.03 x10 3/uL 0-0.03 LYMPHOCYTE # (test code=LY#) 1.19 K/mm3 1.0-5.0 MONOCYTE # (test code=MO#) 0.79 K/mm3 0-0.8 EOSINOPHIL # (test code=EO#) 0.52 K/mm3 0.0-0.5 BASOPHIL # (test code=BA#) 0.07 K/mm3 0.0-0.2 NUCLEATED RBC # (test code=NRBC#) 0.00 K/mm3 0.0-0.1 MANUAL DIFF REQUIRED (test code=MDIFF) NO, ONLY SCAN NEEDED DIFFERENTIAL [id number] 09:31:00* Test Item Value Reference Range Comments STAIN ACCEPTABILITY (test code=STN ACCEPTABLE) CABOT RINGS (test code=CAB) MORPHOLOGY COMMENT (test code=MOC) PLATELET ESTIMATE (test code=PLTEST) PLATELET MORPHOLOGY (test code=PLTMORPH) UR HCG [id number] 10:14:00* Test Item Value Reference Range Comments UR HCG QUAL (test code=HCGQLU) NEGATIVE This HCGQL test is NOT applicable for MALE patients.Check with nurse about probable order error.If Tumor Marker Test needed, nurse should order test "HCGTU"(Test #[id number]) SPECIMEN COMMENTS: URINE TESTCB W/AUTO [id number] 06:59:00* Test Item Value Reference Range Comments WHITE BLOOD CELL (test code=WBC) 8.4 K/mm3 4.5-12.5 RED BLOOD CELL (test code=RBC) 4.09 mill/mm3 3.7-5.2 HEMOGLOBIN (test code=HGB) 8.1 gram/dL 11.5-15.5 HEMATOCRIT (test code=HCT) 30.3 % 36.0-46.0 MEAN CELL VOLUME (test code=MCV) 74.1 fL 80-98 MEAN CELL HGB (test code=MCH) 19.8 picogram 27.0-33.0 MEAN CELL HGB CONCETRATION (test code=MCHC) 26.7 gram/dL 33.0-36.0 RED CELL DISTRIBUTION WIDTH (test code=RDW) TEST NOT PERFORMED % 11.6-16.2 RED CELL DISTRIBUTION WIDTH SD (test code=RDW-SD) TEST NOT PERFORMED fL 37.0-51.0 PLATELET COUNT (test code=PLT) 315 K/mm3 150-450 MEAN PLATELET VOLUME (test code=MPV) 10.0 fL 6.7-11.0 NEUTROPHIL % (test code=NT%) 64.8 % 39.0-69.0 IMMATURE GRANULOCYTE % (test code=IG%) 0.5 % 0.0-5.0 LYMPHOCYTE % (test code=LY%) 18.4 % 25.0-55.0 MONOCYTE % (test code=MO%) 9.8 % 0.0-10.0 EOSINOPHIL % (test code=EO%) 5.5 % 0.0-5.0 BASOPHIL % (test code=BA%) 1.0 % 0.0-1.0 NUCLEATED RBC % (test code=NRBC%) 0.0 % 0-0 NEUTROPHIL # (test code=NT#) 5.44 K/mm3 1.8-7.7 IMMATURE GRANULOCYTE # (test code=IG#) 0.04 x10 3/uL 0-0.03 LYMPHOCYTE # (test code=LY#) 1.54 K/mm3 1.0-5.0 MONOCYTE # (test code=MO#) 0.82 K/mm3 0-0.8 EOSINOPHIL # (test code=EO#) 0.46 K/mm3 0.0-0.5 BASOPHIL # (test code=BA#) 0.08 K/mm3 0.0-0.2 NUCLEATED RBC # (test code=NRBC#) 0.00 K/mm3 0.0-0.1 MANUAL DIFF REQUIRED (test code=MDIFF) NO, ONLY SCAN NEEDED DIFFERENTIAL [id number] 06:59:00* Test Item Value Reference Range Comments STAIN ACCEPTABILITY (test code=STN ACCEPTABLE) STAIN ACCEPTABLE POLYCHROMASIA (test code=POLC) 3+ HYPOCHROMIA (test code=HYPO) 1+ POIKILOCYTOSIS (test code=POIK) 1+ ANISOCYTOSIS (test code=ANISO) 2+ MICROCYTOSIS (test code=MICR) 2+ PLATELET ESTIMATE (test code=PLTEST) ADEQUATE PLATELET MORPHOLOGY (test code=PLTMORPH) SIZE VARIABLE CBC W/AUTO [id number] 06:58:00* Test Item Value Reference Range Comments WHITE BLOOD CELL (test code=WBC) 8.4 K/mm3 4.5-12.5 RED BLOOD CELL (test code=RBC) 4.09 mill/mm3 3.7-5.2 HEMOGLOBIN (test code=HGB) 8.1 gram/dL 11.5-15.5 HEMATOCRIT (test code=HCT) 30.3 % 36.0-46.0 MEAN CELL VOLUME (test code=MCV) 74.1 fL 80-98 MEAN CELL HGB (test code=MCH) 19.8 picogram 27.0-33.0 MEAN CELL HGB CONCETRATION (test code=MCHC) 26.7 gram/dL 33.0-36.0 RED CELL DISTRIBUTION WIDTH (test code=RDW) TEST NOT PERFORMED % 11.6-16.2 RED CELL DISTRIBUTION WIDTH SD (test code=RDW-SD) TEST NOT PERFORMED fL 37.0-51.0 PLATELET COUNT (test code=PLT) 315 K/mm3 150-450 MEAN PLATELET VOLUME (test code=MPV) 10.0 fL 6.7-11.0 NEUTROPHIL % (test code=NT%) 64.8 % 39.0-69.0 IMMATURE GRANULOCYTE % (test code=IG%) 0.5 % 0.0-5.0 LYMPHOCYTE % (test code=LY%) 18.4 % 25.0-55.0 MONOCYTE % (test code=MO%) 9.8 % 0.0-10.0 EOSINOPHIL % (test code=EO%) 5.5 % 0.0-5.0 BASOPHIL % (test code=BA%) 1.0 % 0.0-1.0 NUCLEATED RBC % (test code=NRBC%) 0.0 % 0-0 NEUTROPHIL # (test code=NT#) 5.44 K/mm3 1.8-7.7 IMMATURE GRANULOCYTE # (test code=IG#) 0.04 x10 3/uL 0-0.03 LYMPHOCYTE # (test code=LY#) 1.54 K/mm3 1.0-5.0 MONOCYTE # (test code=MO#) 0.82 K/mm3 0-0.8 EOSINOPHIL # (test code=EO#) 0.46 K/mm3 0.0-0.5 BASOPHIL # (test code=BA#) 0.08 K/mm3 0.0-0.2 NUCLEATED RBC # (test code=NRBC#) 0.00 K/mm3 0.0-0.1 MANUAL DIFF REQUIRED (test code=MDIFF) NO, ONLY SCAN NEEDED DIFFERENTIAL [id number] 06:58:00* Test Item Value Reference Range Comments STAIN ACCEPTABILITY (test code=STN ACCEPTABLE) CABOT RINGS (test code=CAB) MORPHOLOGY COMMENT (test code=MOC) PLATELET ESTIMATE (test code=PLTEST) PLATELET MORPHOLOGY (test code=PLTMORPH) CBC W/AUTO [id number] 06:58:00* Test Item Value Reference Range Comments WHITE BLOOD CELL (test code=WBC) 8.4 K/mm3 4.5-12.5 RED BLOOD CELL (test code=RBC) 4.09 mill/mm3 3.7-5.2 HEMOGLOBIN (test code=HGB) 8.1 gram/dL 11.5-15.5 HEMATOCRIT (test code=HCT) 30.3 % 36.0-46.0 MEAN CELL VOLUME (test code=MCV) 74.1 fL 80-98 MEAN CELL HGB (test code=MCH) 19.8 picogram 27.0-33.0 MEAN CELL HGB CONCETRATION (test code=MCHC) 26.7 gram/dL 33.0-36.0 RED CELL DISTRIBUTION WIDTH (test code=RDW) TEST NOT PERFORMED % 11.6-16.2 RED CELL DISTRIBUTION WIDTH SD (test code=RDW-SD) TEST NOT PERFORMED fL 37.0-51.0 PLATELET COUNT (test code=PLT) 315 K/mm3 150-450 MEAN PLATELET VOLUME (test code=MPV) 10.0 fL 6.7-11.0 NEUTROPHIL % (test code=NT%) 64.8 % 39.0-69.0 IMMATURE GRANULOCYTE % (test code=IG%) 0.5 % 0.0-5.0 LYMPHOCYTE % (test code=LY%) 18.4 % 25.0-55.0 MONOCYTE % (test code=MO%) 9.8 % 0.0-10.0 EOSINOPHIL % (test code=EO%) 5.5 % 0.0-5.0 BASOPHIL % (test code=BA%) 1.0 % 0.0-1.0 NUCLEATED RBC % (test code=NRBC%) 0.0 % 0-0 NEUTROPHIL # (test code=NT#) 5.44 K/mm3 1.8-7.7 IMMATURE GRANULOCYTE # (test code=IG#) 0.04 x10 3/uL 0-0.03 LYMPHOCYTE # (test code=LY#) 1.54 K/mm3 1.0-5.0 MONOCYTE # (test code=MO#) 0.82 K/mm3 0-0.8 EOSINOPHIL # (test code=EO#) 0.46 K/mm3 0.0-0.5 BASOPHIL # (test code=BA#) 0.08 K/mm3 0.0-0.2 NUCLEATED RBC # (test code=NRBC#) 0.00 K/mm3 0.0-0.1 MANUAL DIFF REQUIRED (test code=MDIFF) NO, ONLY SCAN NEEDED DIFFERENTIAL [id number] 06:58:00* Test Item Value Reference Range Comments STAIN ACCEPTABILITY (test code=STN ACCEPTABLE) CABOT RINGS (test code=CAB) MORPHOLOGY COMMENT (test code=MOC) PLATELET ESTIMATE (test code=PLTEST) PLATELET MORPHOLOGY (test code=PLTMORPH) CBC W/AUTO [id number] 06:58:00* Test Item Value Reference Range Comments WHITE BLOOD CELL (test code=WBC) 8.4 K/mm3 4.5-12.5 RED BLOOD CELL (test code=RBC) 4.09 mill/mm3 3.7-5.2 HEMOGLOBIN (test code=HGB) 8.1 gram/dL 11.5-15.5 HEMATOCRIT (test code=HCT) 30.3 % 36.0-46.0 MEAN CELL VOLUME (test code=MCV) 74.1 fL 80-98 MEAN CELL HGB (test code=MCH) 19.8 picogram 27.0-33.0 MEAN CELL HGB CONCETRATION (test code=MCHC) 26.7 gram/dL 33.0-36.0 RED CELL DISTRIBUTION WIDTH (test code=RDW) TEST NOT PERFORMED % 11.6-16.2 RED CELL DISTRIBUTION WIDTH SD (test code=RDW-SD) TEST NOT PERFORMED fL 37.0-51.0 PLATELET COUNT (test code=PLT) 315 K/mm3 150-450 MEAN PLATELET VOLUME (test code=MPV) 10.0 fL 6.7-11.0 NEUTROPHIL % (test code=NT%) 64.8 % 39.0-69.0 IMMATURE GRANULOCYTE % (test code=IG%) 0.5 % 0.0-5.0 LYMPHOCYTE % (test code=LY%) 18.4 % 25.0-55.0 MONOCYTE % (test code=MO%) 9.8 % 0.0-10.0 EOSINOPHIL % (test code=EO%) 5.5 % 0.0-5.0 BASOPHIL % (test code=BA%) 1.0 % 0.0-1.0 NUCLEATED RBC % (test code=NRBC%) 0.0 % 0-0 NEUTROPHIL # (test code=NT#) 5.44 K/mm3 1.8-7.7 IMMATURE GRANULOCYTE # (test code=IG#) 0.04 x10 3/uL 0-0.03 LYMPHOCYTE # (test code=LY#) 1.54 K/mm3 1.0-5.0 MONOCYTE # (test code=MO#) 0.82 K/mm3 0-0.8 EOSINOPHIL # (test code=EO#) 0.46 K/mm3 0.0-0.5 BASOPHIL # (test code=BA#) 0.08 K/mm3 0.0-0.2 NUCLEATED RBC # (test code=NRBC#) 0.00 K/mm3 0.0-0.1 MANUAL DIFF REQUIRED (test code=MDIFF) NO, ONLY SCAN NEEDED DIFFERENTIAL [id number] 06:58:00* Test Item Value Reference Range Comments STAIN ACCEPTABILITY (test code=STN ACCEPTABLE) MORPHOLOGY COMMENT (test code=MOC) PLATELET ESTIMATE (test code=PLTEST) PLATELET MORPHOLOGY (test code=PLTMORPH) CBC W/AUTO [id number] 06:58:00* Test Item Value Reference Range Comments WHITE BLOOD CELL (test code=WBC) 8.4 K/mm3 4.5-12.5 RED BLOOD CELL (test code=RBC) 4.09 mill/mm3 3.7-5.2 HEMOGLOBIN (test code=HGB) 8.1 gram/dL 11.5-15.5 HEMATOCRIT (test code=HCT) 30.3 % 36.0-46.0 MEAN CELL VOLUME (test code=MCV) 74.1 fL 80-98 MEAN CELL HGB (test code=MCH) 19.8 picogram 27.0-33.0 MEAN CELL HGB CONCETRATION (test code=MCHC) 26.7 gram/dL 33.0-36.0 RED CELL DISTRIBUTION WIDTH (test code=RDW) TEST NOT PERFORMED % 11.6-16.2 RED CELL DISTRIBUTION WIDTH SD (test code=RDW-SD) TEST NOT PERFORMED fL 37.0-51.0 PLATELET COUNT (test code=PLT) 315 K/mm3 150-450 MEAN PLATELET VOLUME (test code=MPV) 10.0 fL 6.7-11.0 NEUTROPHIL % (test code=NT%) 64.8 % 39.0-69.0 IMMATURE GRANULOCYTE % (test code=IG%) 0.5 % 0.0-5.0 LYMPHOCYTE % (test code=LY%) 18.4 % 25.0-55.0 MONOCYTE % (test code=MO%) 9.8 % 0.0-10.0 EOSINOPHIL % (test code=EO%) 5.5 % 0.0-5.0 BASOPHIL % (test code=BA%) 1.0 % 0.0-1.0 NUCLEATED RBC % (test code=NRBC%) 0.0 % 0-0 NEUTROPHIL # (test code=NT#) 5.44 K/mm3 1.8-7.7 IMMATURE GRANULOCYTE # (test code=IG#) 0.04 x10 3/uL 0-0.03 LYMPHOCYTE # (test code=LY#) 1.54 K/mm3 1.0-5.0 MONOCYTE # (test code=MO#) 0.82 K/mm3 0-0.8 EOSINOPHIL # (test code=EO#) 0.46 K/mm3 0.0-0.5 BASOPHIL # (test code=BA#) 0.08 K/mm3 0.0-0.2 NUCLEATED RBC # (test code=NRBC#) 0.00 K/mm3 0.0-0.1 MANUAL DIFF REQUIRED (test code=MDIFF) NO, ONLY SCAN NEEDED DIFFERENTIAL [id number] 06:58:00* Test Item Value Reference Range Comments STAIN ACCEPTABILITY (test code=STN ACCEPTABLE) CABOT RINGS (test code=CAB) MORPHOLOGY COMMENT (test code=MOC) PLATELET ESTIMATE (test code=PLTEST) PLATELET MORPHOLOGY (test code=PLTMORPH) BASIC METABOLIC [id number] 06:22:00* Test Item Value Reference Range Comments SODIUM (test code=NA) 140 mmol/L 136-145 POTASSIUM (test code=K) 3.7 mmol/L 3.5-5.1 CHLORIDE (test code=CL) 108.0 mmol/L 98-107 CARBON DIOXIDE (test code=CO2) 24.0 mmol/L 21-32 ANION GAP (test code=GAP) 11.7 10-20 GLUCOSE (test code=GLU) 86 mg/dL 74-106 BLOOD UREA NITROGEN (test code=BUN) 5 mg/dL 7-18 GLOMERULAR FILTRATION RATE (test code=GFR) > 60 mL/min >=60 Estimated GFR by using Modified MDRD formula.Chronic kidney disease is defined as either kidney damageor GFR <60 mL/min/1.73 m2 for >3 months. CREATININE (test code=CREAT) 0.70 mg/dL 0.55-1.02 Note change in reference range due to change in reagent. BUN/CREATININE RATIO (test code=BUN/CREA) 7.1 10-20 CALCIUM (test code=CA) 8.6 mg/dL 8.5-10.1 BASIC METABOLIC [id number] 06:14:00* Test Item Value Reference Range Comments SODIUM (test code=NA) 140 mmol/L 136-145 POTASSIUM (test code=K) 3.7 mmol/L 3.5-5.1 CHLORIDE (test code=CL) 108.0 mmol/L 98-107 CARBON DIOXIDE (test code=CO2) mmol/L 21-32 ANION GAP (test code=GAP) 10-20 GLUCOSE (test code=GLU) mg/dL 74-106 BLOOD UREA NITROGEN (test code=BUN) mg/dL 7-18 GLOMERULAR FILTRATION RATE (test code=GFR) mL/min >=60 CREATININE (test code=CREAT) mg/dL 0.55-1.02 BUN/CREATININE RATIO (test code=BUN/CREA) 10-20 CALCIUM (test code=CA) mg/dL 8.5-10.1 FE W/TOTAL IRON BINDING [id number] 10:47:00* Test Item Value Reference Range Comments SERUM IRON (test code=IRON) 21 ug/dL 50-175 TOTAL IRON BINDING CAPACITY (test code=TIBC) 459 mcg/dL 250-450 IRON SATURATION (test code=FESAT) 4.58 % 13-45 PER ALEXI SWANN [email or web address] 01/19/[id number] 10:47:00 * Test Item Value Reference Range Comments FERRITIN (test code=NADINE) 6 ng/mL 8-388 PER ALEXI SWANN [email or web address] 01/19/19 0629CBC W/AUTO [id number] 11:24:00* Test Item Value Reference Range Comments WHITE BLOOD CELL (test code=WBC) 5.8 K/mm3 4.5-12.5 RED BLOOD CELL (test code=RBC) 4.11 mill/mm3 3.7-5.2 HEMOGLOBIN (test code=HGB) 8.2 gram/dL 11.5-15.5 RESULT VERIFIED BY REPEAT ANALYSIS HEMATOCRIT (test code=HCT) 29.6 % 36.0-46.0 MEAN CELL VOLUME (test code=MCV) 72.0 fL 80-98 RESULT VERIFIED BY REPEAT ANALYSIS MEAN CELL HGB (test code=MCH) 20.0 picogram 27.0-33.0 MEAN CELL HGB CONCETRATION (test code=MCHC) 27.7 gram/dL 33.0-36.0 RED CELL DISTRIBUTION WIDTH (test code=RDW) 27.6 % 11.6-16.2 RED CELL DISTRIBUTION WIDTH SD (test code=RDW-SD) 67.9 fL 37.0-51.0 PLATELET COUNT (test code=PLT) 350 K/mm3 150-450 RESULT VERIFIED BY REPEAT ANALYSIS MEAN PLATELET VOLUME (test code=MPV) 10.0 fL 6.7-11.0 NEUTROPHIL % (test code=NT%) 67.3 % 39.0-69.0 IMMATURE GRANULOCYTE % (test code=IG%) 0.7 % 0.0-5.0 LYMPHOCYTE % (test code=LY%) 17.8 % 25.0-55.0 MONOCYTE % (test code=MO%) 9.2 % 0.0-10.0 EOSINOPHIL % (test code=EO%) 3.8 % 0.0-5.0 BASOPHIL % (test code=BA%) 1.2 % 0.0-1.0 NUCLEATED RBC % (test code=NRBC%) 0.0 % 0-0 NEUTROPHIL # (test code=NT#) 3.93 K/mm3 1.8-7.7 IMMATURE GRANULOCYTE # (test code=IG#) 0.04 x10 3/uL 0-0.03 LYMPHOCYTE # (test code=LY#) 1.04 K/mm3 1.0-5.0 MONOCYTE # (test code=MO#) 0.54 K/mm3 0-0.8 EOSINOPHIL # (test code=EO#) 0.22 K/mm3 0.0-0.5 BASOPHIL # (test code=BA#) 0.07 K/mm3 0.0-0.2 NUCLEATED RBC # (test code=NRBC#) 0.00 K/mm3 0.0-0.1 MANUAL DIFF REQUIRED (test code=MDIFF) NO, ONLY SCAN NEEDED DIFFERENTIAL [id number] 11:24:00* Test Item Value Reference Range Comments STAIN ACCEPTABILITY (test code=STN ACCEPTABLE) STAIN ACCEPTABLE POLYCHROMASIA (test code=POLC) 1+ HYPOCHROMIA (test code=HYPO) 1+ ANISOCYTOSIS (test code=ANISO) 2+ MICROCYTOSIS (test code=MICR) 2+ PLATELET ESTIMATE (test code=PLTEST) ADEQUATE PLATELET MORPHOLOGY (test code=PLTMORPH) SIZE VARIABLE LARGE PLATELETS SEEN CBC W/AUTO [id number] 10:57:00* Test Item Value Reference Range Comments WHITE BLOOD CELL (test code=WBC) 5.8 K/mm3 4.5-12.5 RED BLOOD CELL (test code=RBC) 4.11 mill/mm3 3.7-5.2 HEMOGLOBIN (test code=HGB) 8.2 gram/dL 11.5-15.5 RESULT VERIFIED BY REPEAT ANALYSIS HEMATOCRIT (test code=HCT) 29.6 % 36.0-46.0 MEAN CELL VOLUME (test code=MCV) 72.0 fL 80-98 RESULT VERIFIED BY REPEAT ANALYSIS MEAN CELL HGB (test code=MCH) 20.0 picogram 27.0-33.0 MEAN CELL HGB CONCETRATION (test code=MCHC) 27.7 gram/dL 33.0-36.0 RED CELL DISTRIBUTION WIDTH (test code=RDW) 27.6 % 11.6-16.2 RED CELL DISTRIBUTION WIDTH SD (test code=RDW-SD) 67.9 fL 37.0-51.0 PLATELET COUNT (test code=PLT) 350 K/mm3 150-450 RESULT VERIFIED BY REPEAT ANALYSIS MEAN PLATELET VOLUME (test code=MPV) 10.0 fL 6.7-11.0 NEUTROPHIL % (test code=NT%) 67.3 % 39.0-69.0 IMMATURE GRANULOCYTE % (test code=IG%) 0.7 % 0.0-5.0 LYMPHOCYTE % (test code=LY%) 17.8 % 25.0-55.0 MONOCYTE % (test code=MO%) 9.2 % 0.0-10.0 EOSINOPHIL % (test code=EO%) 3.8 % 0.0-5.0 BASOPHIL % (test code=BA%) 1.2 % 0.0-1.0 NUCLEATED RBC % (test code=NRBC%) 0.0 % 0-0 NEUTROPHIL # (test code=NT#) 3.93 K/mm3 1.8-7.7 IMMATURE GRANULOCYTE # (test code=IG#) 0.04 x10 3/uL 0-0.03 LYMPHOCYTE # (test code=LY#) 1.04 K/mm3 1.0-5.0 MONOCYTE # (test code=MO#) 0.54 K/mm3 0-0.8 EOSINOPHIL # (test code=EO#) 0.22 K/mm3 0.0-0.5 BASOPHIL # (test code=BA#) 0.07 K/mm3 0.0-0.2 NUCLEATED RBC # (test code=NRBC#) 0.00 K/mm3 0.0-0.1 MANUAL DIFF REQUIRED (test code=MDIFF) NO, ONLY SCAN NEEDED DIFFERENTIAL [id number] 10:57:00* Test Item Value Reference Range Comments STAIN ACCEPTABILITY (test code=STN ACCEPTABLE) CABOT RINGS (test code=CAB) MORPHOLOGY COMMENT (test code=MOC) PLATELET ESTIMATE (test code=PLTEST) PLATELET MORPHOLOGY (test code=PLTMORPH) CBC W/AUTO [id number] 10:57:00* Test Item Value Reference Range Comments WHITE BLOOD CELL (test code=WBC) 5.8 K/mm3 4.5-12.5 RED BLOOD CELL (test code=RBC) 4.11 mill/mm3 3.7-5.2 HEMOGLOBIN (test code=HGB) 8.2 gram/dL 11.5-15.5 RESULT VERIFIED BY REPEAT ANALYSIS HEMATOCRIT (test code=HCT) 29.6 % 36.0-46.0 MEAN CELL VOLUME (test code=MCV) 72.0 fL 80-98 RESULT VERIFIED BY REPEAT ANALYSIS MEAN CELL HGB (test code=MCH) 20.0 picogram 27.0-33.0 MEAN CELL HGB CONCETRATION (test code=MCHC) 27.7 gram/dL 33.0-36.0 RED CELL DISTRIBUTION WIDTH (test code=RDW) 27.6 % 11.6-16.2 RED CELL DISTRIBUTION WIDTH SD (test code=RDW-SD) 67.9 fL 37.0-51.0 PLATELET COUNT (test code=PLT) 350 K/mm3 150-450 RESULT VERIFIED BY REPEAT ANALYSIS MEAN PLATELET VOLUME (test code=MPV) 10.0 fL 6.7-11.0 NEUTROPHIL % (test code=NT%) 67.3 % 39.0-69.0 IMMATURE GRANULOCYTE % (test code=IG%) 0.7 % 0.0-5.0 LYMPHOCYTE % (test code=LY%) 17.8 % 25.0-55.0 MONOCYTE % (test code=MO%) 9.2 % 0.0-10.0 EOSINOPHIL % (test code=EO%) 3.8 % 0.0-5.0 BASOPHIL % (test code=BA%) 1.2 % 0.0-1.0 NUCLEATED RBC % (test code=NRBC%) 0.0 % 0-0 NEUTROPHIL # (test code=NT#) 3.93 K/mm3 1.8-7.7 IMMATURE GRANULOCYTE # (test code=IG#) 0.04 x10 3/uL 0-0.03 LYMPHOCYTE # (test code=LY#) 1.04 K/mm3 1.0-5.0 MONOCYTE # (test code=MO#) 0.54 K/mm3 0-0.8 EOSINOPHIL # (test code=EO#) 0.22 K/mm3 0.0-0.5 BASOPHIL # (test code=BA#) 0.07 K/mm3 0.0-0.2 NUCLEATED RBC # (test code=NRBC#) 0.00 K/mm3 0.0-0.1 MANUAL DIFF REQUIRED (test code=MDIFF) NO, ONLY SCAN NEEDED DIFFERENTIAL [id number] 10:57:00* Test Item Value Reference Range Comments STAIN ACCEPTABILITY (test code=STN ACCEPTABLE) MORPHOLOGY COMMENT (test code=MOC) PLATELET ESTIMATE (test code=PLTEST) PLATELET MORPHOLOGY (test code=PLTMORPH) CBC W/AUTO [id number] 10:56:00* Test Item Value Reference Range Comments WHITE BLOOD CELL (test code=WBC) 5.8 K/mm3 4.5-12.5 RED BLOOD CELL (test code=RBC) 4.11 mill/mm3 3.7-5.2 HEMOGLOBIN (test code=HGB) 8.2 gram/dL 11.5-15.5 RESULT VERIFIED BY REPEAT ANALYSIS HEMATOCRIT (test code=HCT) 29.6 % 36.0-46.0 MEAN CELL VOLUME (test code=MCV) 72.0 fL 80-98 RESULT VERIFIED BY REPEAT ANALYSIS MEAN CELL HGB (test code=MCH) 20.0 picogram 27.0-33.0 MEAN CELL HGB CONCETRATION (test code=MCHC) 27.7 gram/dL 33.0-36.0 RED CELL DISTRIBUTION WIDTH (test code=RDW) 27.6 % 11.6-16.2 RED CELL DISTRIBUTION WIDTH SD (test code=RDW-SD) 67.9 fL 37.0-51.0 PLATELET COUNT (test code=PLT) 350 K/mm3 150-450 RESULT VERIFIED BY REPEAT ANALYSIS MEAN PLATELET VOLUME (test code=MPV) 10.0 fL 6.7-11.0 NEUTROPHIL % (test code=NT%) 67.3 % 39.0-69.0 IMMATURE GRANULOCYTE % (test code=IG%) 0.7 % 0.0-5.0 LYMPHOCYTE % (test code=LY%) 17.8 % 25.0-55.0 MONOCYTE % (test code=MO%) 9.2 % 0.0-10.0 EOSINOPHIL % (test code=EO%) 3.8 % 0.0-5.0 BASOPHIL % (test code=BA%) 1.2 % 0.0-1.0 NUCLEATED RBC % (test code=NRBC%) 0.0 % 0-0 NEUTROPHIL # (test code=NT#) 3.93 K/mm3 1.8-7.7 IMMATURE GRANULOCYTE # (test code=IG#) 0.04 x10 3/uL 0-0.03 LYMPHOCYTE # (test code=LY#) 1.04 K/mm3 1.0-5.0 MONOCYTE # (test code=MO#) 0.54 K/mm3 0-0.8 EOSINOPHIL # (test code=EO#) 0.22 K/mm3 0.0-0.5 BASOPHIL # (test code=BA#) 0.07 K/mm3 0.0-0.2 NUCLEATED RBC # (test code=NRBC#) 0.00 K/mm3 0.0-0.1 MANUAL DIFF REQUIRED (test code=MDIFF) NO, ONLY SCAN NEEDED DIFFERENTIAL [id number] 10:56:00* Test Item Value Reference Range Comments STAIN ACCEPTABILITY (test code=STN ACCEPTABLE) CABOT RINGS (test code=CAB) MORPHOLOGY COMMENT (test code=MOC) PLATELET ESTIMATE (test code=PLTEST) PLATELET MORPHOLOGY (test code=PLTMORPH) CBC W/AUTO [id number] 10:56:00* Test Item Value Reference Range Comments WHITE BLOOD CELL (test code=WBC) 5.8 K/mm3 4.5-12.5 RED BLOOD CELL (test code=RBC) 4.11 mill/mm3 3.7-5.2 HEMOGLOBIN (test code=HGB) 8.2 gram/dL 11.5-15.5 RESULT VERIFIED BY REPEAT ANALYSIS HEMATOCRIT (test code=HCT) 29.6 % 36.0-46.0 MEAN CELL VOLUME (test code=MCV) 72.0 fL 80-98 RESULT VERIFIED BY REPEAT ANALYSIS MEAN CELL HGB (test code=MCH) 20.0 picogram 27.0-33.0 MEAN CELL HGB CONCETRATION (test code=MCHC) 27.7 gram/dL 33.0-36.0 RED CELL DISTRIBUTION WIDTH (test code=RDW) 27.6 % 11.6-16.2 RED CELL DISTRIBUTION WIDTH SD (test code=RDW-SD) 67.9 fL 37.0-51.0 PLATELET COUNT (test code=PLT) 350 K/mm3 150-450 RESULT VERIFIED BY REPEAT ANALYSIS MEAN PLATELET VOLUME (test code=MPV) 10.0 fL 6.7-11.0 NEUTROPHIL % (test code=NT%) 67.3 % 39.0-69.0 IMMATURE GRANULOCYTE % (test code=IG%) 0.7 % 0.0-5.0 LYMPHOCYTE % (test code=LY%) 17.8 % 25.0-55.0 MONOCYTE % (test code=MO%) 9.2 % 0.0-10.0 EOSINOPHIL % (test code=EO%) 3.8 % 0.0-5.0 BASOPHIL % (test code=BA%) 1.2 % 0.0-1.0 NUCLEATED RBC % (test code=NRBC%) 0.0 % 0-0 NEUTROPHIL # (test code=NT#) 3.93 K/mm3 1.8-7.7 IMMATURE GRANULOCYTE # (test code=IG#) 0.04 x10 3/uL 0-0.03 LYMPHOCYTE # (test code=LY#) 1.04 K/mm3 1.0-5.0 MONOCYTE # (test code=MO#) 0.54 K/mm3 0-0.8 EOSINOPHIL # (test code=EO#) 0.22 K/mm3 0.0-0.5 BASOPHIL # (test code=BA#) 0.07 K/mm3 0.0-0.2 NUCLEATED RBC # (test code=NRBC#) 0.00 K/mm3 0.0-0.1 MANUAL DIFF REQUIRED (test code=MDIFF) NO, ONLY SCAN NEEDED DIFFERENTIAL [id number] 10:56:00* Test Item Value Reference Range Comments STAIN ACCEPTABILITY (test code=STN ACCEPTABLE) CABOT RINGS (test code=CAB) MORPHOLOGY COMMENT (test code=MOC) PLATELET ESTIMATE (test code=PLTEST) PLATELET MORPHOLOGY (test code=PLTMORPH) HGB [id number] 14:37:00* Test Item Value Reference Range Comments HEMOGLOBIN (test code=HGB) 5.3 gram/dL 11.5-15.5 HEMATOCRIT (test code=HCT) 19.6 % 36.0-46.0 Results called to Shanna RATLIFF [facility]. 01/17/19 1436Critical results verified and read back by Nurse? Y CBC W/AUTO [id number] 10:43:00* Test Item Value Reference Range Comments WHITE BLOOD CELL (test code=WBC) 5.7 K/mm3 4.5-12.5 RED BLOOD CELL (test code=RBC) 3.03 mill/mm3 3.7-5.2 HEMOGLOBIN (test code=HGB) 4.4 gram/dL 11.5-15.5 HEMATOCRIT (test code=HCT) 17.7 % 36.0-46.[address]MATTINGLYby [email or web address] 01/17/19 1041Critical results verified and read back by Nurse? Y MEAN CELL VOLUME (test code=MCV) 58.4 fL 80-98 MEAN CELL HGB (test code=MCH) 14.5 picogram 27.0-33.0 MEAN CELL HGB CONCETRATION (test code=MCHC) 24.9 gram/dL 33.0-36.0 RED CELL DISTRIBUTION WIDTH (test code=RDW) 19.4 % 11.6-16.2 RED CELL DISTRIBUTION WIDTH SD (test code=RDW-SD) 39.6 fL 37.0-51.0 PLATELET COUNT (test code=PLT) 285 K/mm3 150-450 MEAN PLATELET VOLUME (test code=MPV) 9.2 fL 6.7-11.0 NEUTROPHIL % (test code=NT%) 64.7 % 39.0-69.0 LYMPHOCYTE % (test code=LY%) 22.1 % 25.0-55.0 MONOCYTE % (test code=MO%) 8.1 % 0.0-10.0 EOSINOPHIL % (test code=EO%) 3.0 % 0.0-5.0 BASOPHIL % (test code=BA%) 1.9 % 0.0-1.0 NEUTROPHIL # (test code=NT#) 3.69 K/mm3 1.8-7.7 LYMPHOCYTE # (test code=LY#) 1.26 K/mm3 1.0-5.0 MONOCYTE # (test code=MO#) 0.46 K/mm3 0-0.8 EOSINOPHIL # (test code=EO#) 0.17 K/mm3 0.0-0.5 BASOPHIL # (test code=BA#) 0.11 K/mm3 0.0-0.2 MANUAL DIFF REQUIRED (test code=MDIFF) NO, ONLY SCAN NEEDED DIFFERENTIAL [id number] 10:43:00* Test Item Value Reference Range Comments STAIN ACCEPTABILITY (test code=STN ACCEPTABLE) STAIN ACCEPTABLE HYPOCHROMIA (test code=HYPO) 3+ POIKILOCYTOSIS (test code=POIK) 2+ MICROCYTOSIS (test code=MICR) 3+ ELLIPTOCYTES (test code=ELL) 2+ MORPHOLOGY COMMENT (test code=MOC) NORMAL PLATELET ESTIMATE (test code=PLTEST) ADEQUATE PLATELET MORPHOLOGY (test code=PLTMORPH) NORMAL CBC W/AUTO [id number] 10:41:00* Test Item Value Reference Range Comments WHITE BLOOD CELL (test code=WBC) 5.7 K/mm3 4.5-12.5 RED BLOOD CELL (test code=RBC) 3.03 mill/mm3 3.7-5.2 HEMOGLOBIN (test code=HGB) 4.4 gram/dL 11.5-15.5 HEMATOCRIT (test code=HCT) 17.7 % 36.0-46.[address]MATTINGLYby [email or web address] 01/17/19 1041Critical results verified and read back by Nurse? Y MEAN CELL VOLUME (test code=MCV) 58.4 fL 80-98 MEAN CELL HGB (test code=MCH) 14.5 picogram 27.0-33.0 MEAN CELL HGB CONCETRATION (test code=MCHC) 24.9 gram/dL 33.0-36.0 RED CELL DISTRIBUTION WIDTH (test code=RDW) 19.4 % 11.6-16.2 RED CELL DISTRIBUTION WIDTH SD (test code=RDW-SD) 39.6 fL 37.0-51.0 PLATELET COUNT (test code=PLT) 285 K/mm3 150-450 MEAN PLATELET VOLUME (test code=MPV) 9.2 fL 6.7-11.0 NEUTROPHIL % (test code=NT%) 64.7 % 39.0-69.0 LYMPHOCYTE % (test code=LY%) 22.1 % 25.0-55.0 MONOCYTE % (test code=MO%) 8.1 % 0.0-10.0 EOSINOPHIL % (test code=EO%) 3.0 % 0.0-5.0 BASOPHIL % (test code=BA%) 1.9 % 0.0-1.0 NEUTROPHIL # (test code=NT#) 3.69 K/mm3 1.8-7.7 LYMPHOCYTE # (test code=LY#) 1.26 K/mm3 1.0-5.0 MONOCYTE # (test code=MO#) 0.46 K/mm3 0-0.8 EOSINOPHIL # (test code=EO#) 0.17 K/mm3 0.0-0.5 BASOPHIL # (test code=BA#) 0.11 K/mm3 0.0-0.2 MANUAL DIFF REQUIRED (test code=MDIFF) NO, ONLY SCAN NEEDED DIFFERENTIAL [id number] 10:41:00* Test Item Value Reference Range Comments STAIN ACCEPTABILITY (test code=STN ACCEPTABLE) CABOT RINGS (test code=CAB) MORPHOLOGY COMMENT (test code=MOC) PLATELET ESTIMATE (test code=PLTEST) PLATELET MORPHOLOGY (test code=PLTMORPH) CBC W/AUTO [id number] 10:41:00* Test Item Value Reference Range Comments WHITE BLOOD CELL (test code=WBC) 5.7 K/mm3 4.5-12.5 RED BLOOD CELL (test code=RBC) 3.03 mill/mm3 3.7-5.2 HEMOGLOBIN (test code=HGB) 4.4 gram/dL 11.5-15.5 HEMATOCRIT (test code=HCT) 17.7 % 36.0-46.[address]MATTINGLYby ACOSTA.EG 01/17/19 1041Critical results verified and read back by Nurse? Y MEAN CELL VOLUME (test code=MCV) 58.4 fL 80-98 MEAN CELL HGB (test code=MCH) 14.5 picogram 27.0-33.0 MEAN CELL HGB CONCETRATION (test code=MCHC) 24.9 gram/dL 33.0-36.0 RED CELL DISTRIBUTION WIDTH (test code=RDW) 19.4 % 11.6-16.2 RED CELL DISTRIBUTION WIDTH SD (test code=RDW-SD) 39.6 fL 37.0-51.0 PLATELET COUNT (test code=PLT) 285 K/mm3 150-450 MEAN PLATELET VOLUME (test code=MPV) 9.2 fL 6.7-11.0 NEUTROPHIL % (test code=NT%) 64.7 % 39.0-69.0 LYMPHOCYTE % (test code=LY%) 22.1 % 25.0-55.0 MONOCYTE % (test code=MO%) 8.1 % 0.0-10.0 EOSINOPHIL % (test code=EO%) 3.0 % 0.0-5.0 BASOPHIL % (test code=BA%) 1.9 % 0.0-1.0 NEUTROPHIL # (test code=NT#) 3.69 K/mm3 1.8-7.7 LYMPHOCYTE # (test code=LY#) 1.26 K/mm3 1.0-5.0 MONOCYTE # (test code=MO#) 0.46 K/mm3 0-0.8 EOSINOPHIL # (test code=EO#) 0.17 K/mm3 0.0-0.5 BASOPHIL # (test code=BA#) 0.11 K/mm3 0.0-0.2 MANUAL DIFF REQUIRED (test code=MDIFF) NO, ONLY SCAN NEEDED DIFFERENTIAL [id number] 10:41:00* Test Item Value Reference Range Comments STAIN ACCEPTABILITY (test code=STN ACCEPTABLE) CABOT RINGS (test code=CAB) MORPHOLOGY COMMENT (test code=MOC) PLATELET ESTIMATE (test code=PLTEST) PLATELET MORPHOLOGY (test code=PLTMORPH) CBC W/AUTO [id number] 10:41:00* Test Item Value Reference Range Comments WHITE BLOOD CELL (test code=WBC) 5.7 K/mm3 4.5-12.5 RED BLOOD CELL (test code=RBC) 3.03 mill/mm3 3.7-5.2 HEMOGLOBIN (test code=HGB) 4.4 gram/dL 11.5-15.5 HEMATOCRIT (test code=HCT) 17.7 % 36.0-46.[address]MATTINGLYby CUNHA 01/17/19 1041Critical results verified and read back by Nurse? Y MEAN CELL VOLUME (test code=MCV) 58.4 fL 80-98 MEAN CELL HGB (test code=MCH) 14.5 picogram 27.0-33.0 MEAN CELL HGB CONCETRATION (test code=MCHC) 24.9 gram/dL 33.0-36.0 RED CELL DISTRIBUTION WIDTH (test code=RDW) 19.4 % 11.6-16.2 RED CELL DISTRIBUTION WIDTH SD (test code=RDW-SD) 39.6 fL 37.0-51.0 PLATELET COUNT (test code=PLT) 285 K/mm3 150-450 MEAN PLATELET VOLUME (test code=MPV) 9.2 fL 6.7-11.0 NEUTROPHIL % (test code=NT%) 64.7 % 39.0-69.0 LYMPHOCYTE % (test code=LY%) 22.1 % 25.0-55.0 MONOCYTE % (test code=MO%) 8.1 % 0.0-10.0 EOSINOPHIL % (test code=EO%) 3.0 % 0.0-5.0 BASOPHIL % (test code=BA%) 1.9 % 0.0-1.0 NEUTROPHIL # (test code=NT#) 3.69 K/mm3 1.8-7.7 LYMPHOCYTE # (test code=LY#) 1.26 K/mm3 1.0-5.0 MONOCYTE # (test code=MO#) 0.46 K/mm3 0-0.8 EOSINOPHIL # (test code=EO#) 0.17 K/mm3 0.0-0.5 BASOPHIL # (test code=BA#) 0.11 K/mm3 0.0-0.2 MANUAL DIFF REQUIRED (test code=MDIFF) NO, ONLY SCAN NEEDED DIFFERENTIAL [id number] 10:41:00* Test Item Value Reference Range Comments STAIN ACCEPTABILITY (test code=STN ACCEPTABLE) MORPHOLOGY COMMENT (test code=MOC) PLATELET ESTIMATE (test code=PLTEST) PLATELET MORPHOLOGY (test code=PLTMORPH) CBC W/AUTO [id number] 10:41:00* Test Item Value Reference Range Comments WHITE BLOOD CELL (test code=WBC) 5.7 K/mm3 4.5-12.5 RED BLOOD CELL (test code=RBC) 3.03 mill/mm3 3.7-5.2 HEMOGLOBIN (test code=HGB) 4.4 gram/dL 11.5-15.5 HEMATOCRIT (test code=HCT) 17.7 % 36.0-46.[address]MATTINGLYby CUNHA 01/17/19 1041Critical results verified and read back by Nurse? Y MEAN CELL VOLUME (test code=MCV) 58.4 fL 80-98 MEAN CELL HGB (test code=MCH) 14.5 picogram 27.0-33.0 MEAN CELL HGB CONCETRATION (test code=MCHC) 24.9 gram/dL 33.0-36.0 RED CELL DISTRIBUTION WIDTH (test code=RDW) 19.4 % 11.6-16.2 RED CELL DISTRIBUTION WIDTH SD (test code=RDW-SD) 39.6 fL 37.0-51.0 PLATELET COUNT (test code=PLT) 285 K/mm3 150-450 MEAN PLATELET VOLUME (test code=MPV) 9.2 fL 6.7-11.0 NEUTROPHIL % (test code=NT%) 64.7 % 39.0-69.0 LYMPHOCYTE % (test code=LY%) 22.1 % 25.0-55.0 MONOCYTE % (test code=MO%) 8.1 % 0.0-10.0 EOSINOPHIL % (test code=EO%) 3.0 % 0.0-5.0 BASOPHIL % (test code=BA%) 1.9 % 0.0-1.0 NEUTROPHIL # (test code=NT#) 3.69 K/mm3 1.8-7.7 LYMPHOCYTE # (test code=LY#) 1.26 K/mm3 1.0-5.0 MONOCYTE # (test code=MO#) 0.46 K/mm3 0-0.8 EOSINOPHIL # (test code=EO#) 0.17 K/mm3 0.0-0.5 BASOPHIL # (test code=BA#) 0.11 K/mm3 0.0-0.2 MANUAL DIFF REQUIRED (test code=MDIFF) NO, ONLY SCAN NEEDED DIFFERENTIAL [id number] 10:41:00* Test Item Value Reference Range Comments STAIN ACCEPTABILITY (test code=STN ACCEPTABLE) CABOT RINGS (test code=CAB) MORPHOLOGY COMMENT (test code=MOC) PLATELET ESTIMATE (test code=PLTEST) PLATELET MORPHOLOGY (test code=PLTMORPH) COMPREHENSIVE METABOLIC [id number] 10:14:00* Test Item Value Reference Range Comments SODIUM (test code=NA) 140 mmol/L 128-145 POTASSIUM (test code=K) 4.1 mmol/L 3.5-5.1 CHLORIDE (test code=CL) 103.0 mmol/L 98-107 CARBON DIOXIDE (test code=CO2) 24.8 mmol/L 22-29 ANION GAP (test code=GAP) 16 mmol/L 10-20 GLUCOSE (test code=GLU) 101 mg/dL 70-110 BLOOD UREA NITROGEN (test code=BUN) 9 mg/dL 7-22 CREATININE (test code=CREAT) 0.76 mg/dL 0.55-1.3 BUN/CREATININE RATIO (test code=BUN/CREA) 11.8 10-20 TOTAL PROTEIN (test code=PROT) 7.8 gram/dL 6.1-7.8 ALBUMIN (test code=ALB) 3.4 g/dL 3.3-4.4 GLOBULIN (test code=GLOB) 4.4 G/DL 1-10 ALBUMIN/GLOBULIN RATIO (test code=A/G) 0.8 0.75-1.50 CALCIUM (test code=CA) 9.0 mg/dL 8.0-10.5 BILIRUBIN TOTAL (test code=BILT) 0.20 mg/dL 0.2-1.2 SGOT/AST (test code=AST) 13 U/L 10-39 SGPT/ALT (test code=ALT) 13 U/L 10-69 ALKALINE PHOSPHATASE TOTAL (test code=ALKP) 99 U/L 50-139 COMPREHENSIVE METABOLIC [id number] 10:10:00* Test Item Value Reference Range Comments SODIUM (test code=NA) 140 mmol/L 128-145 POTASSIUM (test code=K) 4.1 mmol/L 3.5-5.1 CHLORIDE (test code=CL) 103.0 mmol/L 98-107 CARBON DIOXIDE (test code=CO2) 24.8 mmol/L 22-29 ANION GAP (test code=GAP) 16 mmol/L 10-20 GLUCOSE (test code=GLU) 101 mg/dL 70-110 BLOOD UREA NITROGEN (test code=BUN) 9 mg/dL 7-22 CREATININE (test code=CREAT) 0.76 mg/dL 0.55-1.3 BUN/CREATININE RATIO (test code=BUN/CREA) 11.8 10-20 TOTAL PROTEIN (test code=PROT) gram/dL 6.4-8.2 ALBUMIN (test code=ALB) g/dL 3.4-5.0 GLOBULIN (test code=GLOB) G/DL 1-10 ALBUMIN/GLOBULIN RATIO (test code=A/G) 0.75-1.50 CALCIUM (test code=CA) 9.0 mg/dL 8.0-10.5 BILIRUBIN TOTAL (test code=BILT) mg/dL 0.0-1.0 SGOT/AST (test code=AST) IUnit/L 15-37 SGPT/ALT (test code=ALT) IUnit/L 12-78 ALKALINE PHOSPHATASE TOTAL (test code=ALKP) IUnit/L 45-117 BLOOD [id number] 06:00:00* Test Item Value Reference Range Comments CULTURE (BEAKER) (test sigb=2396) No growth in 5 days BLOOD [id number] 06:00:00* Test Item Value Reference Range Comments CULTURE (BEAKER) (test cyzw=8618) No growth in 5 days URINE [id number] 15:12:00* Test Item Value Reference Range Comments CULTURE (BEAKER) (test ygto=9956) >100,000 col/mL Tiesha glabrata <10,000 col/mL skin floraC. DIFFICILE GDH [id number] 07:46:00* Test Item Value Reference Range Comments CDT TOXIN (test rmwt=[id number]) Negative Negative CDT GDH ANTIGEN (test ecwu=[id number]) Negative Negative No indication of Clostridium difficile infection and no colonization. Discontinue enteric isolation and therapy. Testing performed by [employer] Rapid Cassette Assay. For GDH, published sensitivity of the assay is 98.7% compared to cytotoxicity testing. For Toxin AB, published sensitivity is 87.8% and specificity 99.4% compared to cytotoxicity testing.Ve rification of kit performance was done by the [facility] Microbiology Lab prior to cl inical use.Testing performed by [employer] Rapid Cassette Assay. For GDH, published sensitivity of the assay is 98.7% compared to cytotoxicity testing. For Toxin A B, published sensitivity is 87.8% and specificity 99.4% compared to cytotoxicity testing.Verification of kit performance was done by the [facility] Microbiology Lab prior to clinical use.Testing performed by [employer] Rapid Cassette Assay. For GDH, published sensitivity of the assay is 98.7% compared to cytotoxicity testing. For Toxin AB, published sensitivity is 87.8% and specificity 99.4% compared to c ytotoxicity testing.Verification of kit performance was done by the [facility] Microb iology Lab prior to clinical use.BASIC METABOLIC [id number] 07:04:00* Test Item Value Reference Range Comments SODIUM (BEAKER) (test dodb=638) 142 meq/L 136-145 POTASSIUM (BEAKER) (test uuvy=215) 3.3 meq/L 3.5-5.1 CHLORIDE (BEAKER) (test tnpc=202) 103 meq/L 98-107 CO2 (BEAKER) (test cbgs=771) 28 meq/L 22-29 BLOOD UREA NITROGEN (BEAKER) (test manz=116) 3 mg/dL 7-21 CREATININE (BEAKER) (test befl=932) 0.62 mg/dL 0.57-1.25 GLUCOSE RANDOM (BEAKER) (test lgsg=529) 83 mg/dL 70-105 CALCIUM (BEAKER) (test amla=472) 8.2 mg/dL 8.4-10.2 EGFR (BEAKER) (test mhdb=9708) 109 mL/min/1.73 sq m ESTIMATED GFR IS NOT ACCURATE CREATININE CLEARANCE IN PREDICTING GLOMERULAR FILTRATION RATE. ESTIMATED GFR IS NOT APPLICABLE FOR DIALYSIS PATIENTS. CBC W/PLT COUNT & AUTO [id number] 06:37:00* Test Item Value Reference Range Comments WHITE BLOOD CELL COUNT (BEAKER) (test theb=007) 8.4 K/ L 3.5-10.5 RED BLOOD CELL COUNT (BEAKER) (test oetg=618) 3.47 M/ L 3.93-5.22 HEMOGLOBIN (BEAKER) (test waoy=367) 7.4 GM/DL 11.2-15.7 HEMATOCRIT (BEAKER) (test drzx=941) 25.2 % 34.1-44.9 MEAN CORPUSCULAR VOLUME (BEAKER) (test zzpd=931) 72.6 fL 79.4-94.8 MEAN CORPUSCULAR HEMOGLOBIN (BEAKER) (test hyoj=260) 21.3 pg 25.6-32.2 MEAN CORPUSCULAR HEMOGLOBIN CONC (BEAKER) (test fymt=149) 29.4 GM/DL 32.2-35.5 RED CELL DISTRIBUTION WIDTH (BEAKER) (test vena=201) 17.1 % 11.7-14.4 PLATELET COUNT (BEAKER) (test jsdo=213) 581 K/CU MM 150-450 MEAN PLATELET VOLUME (BEAKER) (test dglz=943) 9.8 fL 9.4-12.3 NUCLEATED RED BLOOD CELLS (BEAKER) (test yyth=269) 0 /100 WBC 0-0 NEUTROPHILS RELATIVE PERCENT (BEAKER) (test cwun=233) 67 % LYMPHOCYTES RELATIVE PERCENT (BEAKER) (test xwud=509) 19 % MONOCYTES RELATIVE PERCENT (BEAKER) (test yzuv=844) 9 % EOSINOPHILS RELATIVE PERCENT (BEAKER) (test yfco=549) 4 % BASOPHILS RELATIVE PERCENT (BEAKER) (test seqh=221) 1 % NEUTROPHILS ABSOLUTE COUNT (BEAKER) (test iagk=763) 5.64 K/ L 1.56-6.13 LYMPHOCYTES ABSOLUTE COUNT (BEAKER) (test dhjr=572) 1.57 K/ L 1.18-3.74 MONOCYTES ABSOLUTE COUNT (BEAKER) (test ydrd=971) 0.77 K/ L 0.24-0.36 EOSINOPHILS ABSOLUTE COUNT (BEAKER) (test muop=865) 0.29 K/ L 0.04-0.36 BASOPHILS ABSOLUTE COUNT (BEAKER) (test dgth=635) 0.07 K/ L 0.01-0.08 IMMATURE GRANULOCYTES-RELATIVE PERCENT (BEAKER) (test bqtj=3234) 0 % 0-1 BASIC METABOLIC [id number] 04:14:00* Test Item Value Reference Range Comments SODIUM (BEAKER) (test jjwb=871) 141 meq/L 136-145 POTASSIUM (BEAKER) (test tozv=892) 3.2 meq/L 3.5-5.1 CHLORIDE (BEAKER) (test ocbp=614) 104 meq/L 98-107 CO2 (BEAKER) (test nyum=636) 27 meq/L 22-29 BLOOD UREA NITROGEN (BEAKER) (test jcxy=619) < mg/dL 7-21 CREATININE (BEAKER) (test uomo=865) 0.63 mg/dL 0.57-1.25 GLUCOSE RANDOM (BEAKER) (test ntej=600) 104 mg/dL 70-105 CALCIUM (BEAKER) (test jjsq=077) 8.4 mg/dL 8.4-10.2 EGFR (BEAKER) (test pyxu=3862) 107 mL/min/1.73 sq m ESTIMATED GFR IS NOT ACCURATE CREATININE CLEARANCE IN PREDICTING GLOMERULAR FILTRATION RATE. ESTIMATED GFR IS NOT APPLICABLE FOR DIALYSIS PATIENTS. VANCOMYCIN LEVEL, [id number] 00:42:00* Test Item Value Reference Range Comments VANCOMYCIN TROUGH (BEAKER) (test jfve=386) 8.5 ug/mL 10.0-20.0 BASIC METABOLIC [id number] 07:48:00* Test Item Value Reference Range Comments SODIUM (BEAKER) (test vpyp=167) 141 meq/L 136-145 POTASSIUM (BEAKER) (test mmhv=307) 3.2 meq/L 3.5-5.1 CHLORIDE (BEAKER) (test frtv=803) 106 meq/L 98-107 CO2 (BEAKER) (test tcnk=629) 23 meq/L 22-29 BLOOD UREA NITROGEN (BEAKER) (test anvi=658) < mg/dL 7-21 CREATININE (BEAKER) (test kwlo=623) 0.69 mg/dL 0.57-1.25 GLUCOSE RANDOM (BEAKER) (test wnld=053) 126 mg/dL 70-105 CALCIUM (BEAKER) (test aylo=138) 8.9 mg/dL 8.4-10.2 EGFR (BEAKER) (test zmpm=3299) 96 mL/min/1.73 sq m ESTIMATED GFR IS NOT ACCURATE CREATININE CLEARANCE IN PREDICTING GLOMERULAR FILTRATION RATE. ESTIMATED GFR IS NOT APPLICABLE FOR DIALYSIS PATIENTS. CBC W/PLT COUNT & AUTO [id number] 07:47:00* Test Item Value Reference Range Comments WHITE BLOOD CELL COUNT (BEAKER) (test avsm=517) 12.3 K/ L 3.5-10.5 RED BLOOD CELL COUNT (BEAKER) (test wgfp=475) 3.64 M/ L 3.93-5.22 HEMOGLOBIN (BEAKER) (test skfo=794) 7.6 GM/DL 11.2-15.7 HEMATOCRIT (BEAKER) (test bhhe=788) 26.7 % 34.1-44.9 MEAN CORPUSCULAR VOLUME (BEAKER) (test qqpk=755) 73.4 fL 79.4-94.8 MEAN CORPUSCULAR HEMOGLOBIN (BEAKER) (test qsjo=498) 20.9 pg 25.6-32.2 MEAN CORPUSCULAR HEMOGLOBIN CONC (BEAKER) (test mpir=145) 28.5 GM/DL 32.2-35.5 RED CELL DISTRIBUTION WIDTH (BEAKER) (test qydb=287) 16.7 % 11.7-14.4 PLATELET COUNT (BEAKER) (test nebd=344) 624 K/CU MM 150-450 MEAN PLATELET VOLUME (BEAKER) (test izgq=155) 9.6 fL 9.4-12.3 NUCLEATED RED BLOOD CELLS (BEAKER) (test twys=006) 0 /100 WBC 0-0 NEUTROPHILS RELATIVE PERCENT (BEAKER) (test gdpn=062) 61 % LYMPHOCYTES RELATIVE PERCENT (BEAKER) (test pxkj=808) 25 % MONOCYTES RELATIVE PERCENT (BEAKER) (test dvfn=769) 12 % EOSINOPHILS RELATIVE PERCENT (BEAKER) (test mvrq=555) 1 % BASOPHILS RELATIVE PERCENT (BEAKER) (test ighp=762) 1 % NEUTROPHILS ABSOLUTE COUNT (BEAKER) (test dzxy=711) 7.52 K/ L 1.56-6.13 LYMPHOCYTES ABSOLUTE COUNT (BEAKER) (test jyoi=656) 3.06 K/ L 1.18-3.74 MONOCYTES ABSOLUTE COUNT (BEAKER) (test rycx=662) 1.50 K/ L 0.24-0.36 EOSINOPHILS ABSOLUTE COUNT (BEAKER) (test xgxi=242) 0.14 K/ L 0.04-0.36 BASOPHILS ABSOLUTE COUNT (BEAKER) (test ymgm=341) 0.09 K/ L 0.01-0.08 IMMATURE GRANULOCYTES-RELATIVE PERCENT (BEAKER) (test ncxn=8202) 0 % 0-1 LACTIC ACID, VENOUS, WHOLE [id number] 07:36:00* Test Item Value Reference Range Comments LACTATE BLOOD VENOUS (2) (BEAKER) (test qisg=6143) 2.5 mmol/L 0.5-2.2 Effective 02/23/2016: Units/Reference Range ChangeNew: 0.5-2.2 mmol/L Previous: 5 -20 mg/dLCT, CHEST WITH IV CONTRAST- PE TEST [id number] 00:41:00FINAL REPORT CT, CHEST WITH IV CONTRAST- PE TEST DESIGN I NDICATION: Chest pain, acute, PE suspected, high pretest prob COMPARISON: None T ECHNIQUE: Contrast enhanced CT examination of the chest in the pulmonary arteria l phase from the bases to the apices. Orthogonal reformatted images as well as c oronal maximum intensity projection images were obtained. DOSE REDUCTION: Dose modulation, iterative reconstruction, and/or weight-based adjustment of the mA/k V was utilized to reduce the radiation dose to as low as reasonably achievable. FINDINGS: Limited by motion artifact. Lungs and pleura: No consolidation. No eff usion or pneumothorax.Central airways: Patent.Mediastinum: No adenopathy.Heart a nd pericardium: Unremarkable. Great vessels: Normal calibers.Pulmonary embolism: Nonocclusive filling defect in the superior aspect of the distal right main pul monary artery extending into right upper lobe segmental branches. Regional skele cindy structures: Intact. Included upper abdomen: No acute abnormalities. Addition al findings: None. IMPRESSION: Motion degraded exam. Nonocclusive thrombus in t he distal right main pulmonary artery extending to the right upper lobe segmenta l branch. Findings communicated to telemetry supervisor cook house at 0041 hours on February 23, 2018 Signed: JR Barr Robert MDReport Verified Date/Time: 00:41:20 Reading Location: [facility] C013Y CT Body Reading Room ALYSIS W/ [id number] 16:42:00* Test Item Value Reference Range Comments COLOR (BEAKER) (test hdvw=564) Light Yellow CLARITY (BEAKER) (test nlon=085) Clear SPECIFIC GRAVITY UA (BEAKER) (test yoql=676) 1.016 1.001-1.035 PH UA (BEAKER) (test mbmk=548) 5.5 5.0-8.0 PROTEIN UA (BEAKER) (test sbnx=620) 20 mg/dL Negative GLUCOSE UA (BEAKER) (test cphs=493) Negative Negative KETONES UA (BEAKER) (test uzui=545) 60 mg/dL Negative BILIRUBIN UA (BEAKER) (test vvya=042) Negative Negative BLOOD UA (BEAKER) (test lcso=191) Negative Negative NITRITE UA (BEAKER) (test jwwc=522) Negative Negative LEUKOCYTE ESTERASE UA (BEAKER) (test yezf=186) Trace Negative UROBILINOGEN UA (BEAKER) (test dbve=274) 0.2 mg/dL 0.2-1.0 RBC UA (BEAKER) (test cnkb=093) 3 /HPF WBC UA (BEAKER) (test nfzz=321) 3 /HPF BACTERIA (BEAKER) (test tqeb=710) Rare MUCUS (BEAKER) (test llfu=9959) Rare SQUAMOUS EPITHELIAL (BEAKER) (test tjuq=586) < /HPF YEAST (BEAKER) (test ybqa=5045) Rare SOURCE(BEAKER) (test zmbk=1896) RAD, CHEST, 1 VIEW, NON [id number] 14:20:00Reason for exam:->check picc placement Should this be performed at the bedside?->YesFINAL REPORT Comparison: 02/13/2017 TECHNIQUE: Single view of the chest FINDINGS: Tip of the recently placed left PICC line projects at the cavoatrial junction. Lungs are clear. Cardiac silhouette is within normal limits. Soft tissues and bones are unremarkable. Signed: Edson Coffman MDReport Verified Date/Time: 02/22/2018 14:20:24 Reading Location: [facility] Radiology Reading Room C METABOLIC [id number] 09:01:00* Test Item Value Reference Range Comments SODIUM (BEAKER) (test lyrn=341) 140 meq/L 136-145 POTASSIUM (BEAKER) (test mmmd=905) 3.5 meq/L 3.5-5.1 CHLORIDE (BEAKER) (test ejdv=315) 109 meq/L 98-107 CO2 (BEAKER) (test glan=237) 18 meq/L 22-29 BLOOD UREA NITROGEN (BEAKER) (test ewgw=686) 3 mg/dL 7-21 CREATININE (BEAKER) (test jvgg=758) 0.75 mg/dL 0.57-1.25 GLUCOSE RANDOM (BEAKER) (test pjod=520) 114 mg/dL 70-105 CALCIUM (BEAKER) (test hzhs=370) 8.6 mg/dL 8.4-10.2 EGFR (BEAKER) (test vjpu=7175) 87 mL/min/1.73 sq m ESTIMATED GFR IS NOT ACCURATE CREATININE CLEARANCE IN PREDICTING GLOMERULAR FILTRATION RATE. ESTIMATED GFR IS NOT APPLICABLE FOR DIALYSIS PATIENTS. CBC W/PLT COUNT & AUTO [id number] 08:57:00* Test Item Value Reference Range Comments WHITE BLOOD CELL COUNT (BEAKER) (test rkto=951) 13.0 K/ L 3.5-10.5 RED BLOOD CELL COUNT (BEAKER) (test ubrf=596) 3.58 M/ L 3.93-5.22 HEMOGLOBIN (BEAKER) (test irzb=669) 7.5 GM/DL 11.2-15.7 HEMATOCRIT (BEAKER) (test nvon=093) 25.9 % 34.1-44.9 MEAN CORPUSCULAR VOLUME (BEAKER) (test bumo=121) 72.3 fL 79.4-94.8 MEAN CORPUSCULAR HEMOGLOBIN (BEAKER) (test twke=709) 20.9 pg 25.6-32.2 MEAN CORPUSCULAR HEMOGLOBIN CONC (BEAKER) (test fgyj=299) 29.0 GM/DL 32.2-35.5 RED CELL DISTRIBUTION WIDTH (BEAKER) (test aqgl=980) 16.4 % 11.7-14.4 PLATELET COUNT (BEAKER) (test zavz=055) 591 K/CU MM 150-450 MEAN PLATELET VOLUME (BEAKER) (test wkaj=724) 9.7 fL 9.4-12.3 NUCLEATED RED BLOOD CELLS (BEAKER) (test muhv=568) 0 /100 WBC 0-0 NEUTROPHILS RELATIVE PERCENT (BEAKER) (test zrpf=627) 84 % LYMPHOCYTES RELATIVE PERCENT (BEAKER) (test rdvb=407) 8 % MONOCYTES RELATIVE PERCENT (BEAKER) (test rvzb=164) 6 % EOSINOPHILS RELATIVE PERCENT (BEAKER) (test zgiz=976) 0 % BASOPHILS RELATIVE PERCENT (BEAKER) (test fedd=249) 1 % NEUTROPHILS ABSOLUTE COUNT (BEAKER) (test cejq=941) 10.89 K/ L 1.56-6.13 LYMPHOCYTES ABSOLUTE COUNT (BEAKER) (test apfm=784) 1.05 K/ L 1.18-3.74 MONOCYTES ABSOLUTE COUNT (BEAKER) (test slid=756) 0.83 K/ L 0.24-0.36 EOSINOPHILS ABSOLUTE COUNT (BEAKER) (test jmpx=675) 0.01 K/ L 0.04-0.36 BASOPHILS ABSOLUTE COUNT (BEAKER) (test nwpw=480) 0.08 K/ L 0.01-0.08 IMMATURE GRANULOCYTES-RELATIVE PERCENT (BEAKER) (test vemx=9722) 1 % 0-1 U/S, DUPLEX, [id number] 06:41:00Need to evaluate portal vein and superior mesenteric vein for potential thrombosesReason for exam:->ABDOMINAL PAINx 4 daysReason for exam:->BACK PAINx 4 daysReason for exam:->EMESISFINAL REPORT INDICATION: ABDOMINAL PAINBACK PAINEMESIS COMPARISON: Correlation is made to contrast enhanced CT examination February 21, 2018 TECHNIQUE: Real-time sánchez-scale transabdominal and color and spectral Doppler ultrasound. FINDINGS:MPV: Diameter: 1.7 Flow: Hepatopedal. Velocity: 16.5 cm/sec Filling defects: Near complete thrombus in the main portal vein.Left and right portal veins: Patent. Flow: Antegrade Filling defects: None. Hepatic arteries: Patent RI proper hepatic: 0.5 RI right hepatic: 0.6 RI left hepatic: 0.6 The IVC and hepatic veins are patent. No flow is identified at the level of the confluence with extension into the superior mese nteric vein and splenic vein. Additional findings: None. 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 Flow remains antegrade but sluggish and velocity of 16.5 cm. Propagation of thrombus to the portosplenic co nfluence involving the central portions of the splenic and superior mesenteric v eins. Signed: JR Barr Robert MDReport Verified Date/Time: 02/22/2018 06:41:15 Reading Location: [facility] B1 C013Y CT Body Reading Room Electronically s igned by: EDGAR BARR on 02/22/2018 06:41 AM LACTIC ACID, VENOUS, WHOLE [id number] 05:12:00* Test Item Value Reference Range Comments LACTATE BLOOD VENOUS (2) (BEAKER) (test dmzw=9945) 2.1 mmol/L 0.5-2.2 Effective 02/23/2016: Units/Reference Range ChangeNew: 0.5-2.2 mmol/L Previous: 5 -20 mg/dLLACTIC ACID, VENOUS, WHOLE [id number] 00:43:00* Test Item Value Reference Range Comments LACTATE BLOOD VENOUS (2) (BEAKER) (test egam=3451) 2.3 mmol/L 0.5-2.2 Effective 02/23/2016: Units/Reference Range ChangeNew: 0.5-2.2 mmol/L Previous: 5 -20 mg/dLCT, [id number] 22:52:00FINAL REPORT HISTORY : Abdominal pain, unspecified Technique: Multiple axial images of the abdomen and pelvis were performed with the administration of IV contrast from the lung bases to the pubic symphysis. Delayed images were also obtained. This exam was performed according to our departmental dose optimization program which includes automated exposure control, adjustment of the mA and/or kV according to patient size and/or use of iterative reconstructive technique. COMPARISON : 08/14/2017 COMMENT : The lung bases are clear. The visualized spleen, adrenal glands, pancreas, stomach and duodenum are within normal limits. There are some nonobstructing left renal stones. There is suspected thrombosis of the portal venous system as well as the superior mesenteric vein. There is some edema surrounding the superior mesenteric vein. The etiology is of unclear significance. The findings should be confirmed with a Doppler ultrasound. There is heterogeneous enhancement of the liver, likely due to alteration in perfusion. There is no abdominal, retroperitoneal or pelvic lymphadenopathy. Multilevel degenerative disc changes of the thoracolumbar spine are seen. The p atient is status post subtotal colectomy with a right mid abdomen small bowel os niels. There is a parastomal hernia containing some loops of small bowel as well as some fat. No free air is identified in the abdomen or pelvis. There is a smal l amount of nonspecific free fluid in the pelvis. No findings of any bowel obstr uction. The uterus is grossly within normal limits. There appears to be asymmetr ic enlargement of the left ovary. An underlying cyst or lesion with the left ova ry cannot be excluded. The findings should be further assessed with a pelvic ult rasound. Findings were discussed with Dr. Mccann. Impression: 1. Suspected thro mbosis of the portal venous and superior mesenteric venous systems. Findings dakota uld be confirmed with a Doppler ultrasound examination. 2. Status post subtotal colectomy with a right lower quadrant small bowel ostomy. There is a parastomal hernia containing fat and small bowel loops. 3. Small amount of nonspecific free fluid in the pelvis. 4. Slight asymmetric prominence of the left ovary/adnexa. Correlation with a pelvic ultrasound is advised. 5. Left renal stones. Signed: Olu Chang MDReport Verified Date/Time: 02/21/2018 22:52:38 Reading Location: [address] Consult Reading Room ONIN [id number] 22:14:00* Test Item Value Reference Range Comments TROPONIN I (BEAKER) (test iedz=936) 0.02 ng/mL 0.00-0.03 Troponin I (TnI) levels must be interpreted in the context of the presenting sym ptoms and the clinical findings. Elevated TnI levels indicate myocardial damage, but are not specific for ischemic heart disease. Elevated TnI levels are seen in patients with other cardiac conditions (including myocarditis and congestive h eart failure), and slight TnI elevations occur in patients with other conditions , including sepsis, renal failure, acidosis, acute neurological disease, and per sistent tachyarrhythmia.LACTIC ACID, VENOUS, WHOLE [id number] 22:04:00* Test Item Value Reference Range Comments LACTATE BLOOD VENOUS (2) (BEAKER) (test ozaq=0264) 2.7 mmol/L 0.5-2.2 Specimen moderately hemolyzed Effective 02/23/2016: Units/Reference Range ChangeNew: 0.5-2.2 mmol/L Previous: 5 -20 mg/dLBASIC METABOLIC [id number] 19:13:00* Test Item Value Reference Range Comments SODIUM (BEAKER) (test tgmi=673) 139 meq/L 136-145 POTASSIUM (BEAKER) (test rdye=787) 5.3 meq/L 3.5-5.1 Specimen moderately hemolyzed CHLORIDE (BEAKER) (test efcv=502) 107 meq/L 98-107 CO2 (BEAKER) (test uoou=630) 17 meq/L 22-29 BLOOD UREA NITROGEN (BEAKER) (test mchh=348) 6 mg/dL 7-21 CREATININE (BEAKER) (test pcef=264) 0.77 mg/dL 0.57-1.25 Specimen moderately hemolyzed GLUCOSE RANDOM (BEAKER) (test pngd=095) 90 mg/dL 70-105 CALCIUM (BEAKER) (test wjbk=167) 9.2 mg/dL 8.4-10.2 EGFR (BEAKER) (test topd=8187) 85 mL/min/1.73 sq m ESTIMATED GFR IS NOT ACCURATE CREATININE CLEARANCE IN PREDICTING GLOMERULAR FILTRATION RATE. ESTIMATED GFR IS NOT APPLICABLE FOR DIALYSIS PATIENTS. HEPATIC FUNCTION [id number] 19:13:00* Test Item Value Reference Range Comments TOTAL PROTEIN (BEAKER) (test yuge=857) 8.5 gm/dL 6.0-8.3 Specimen moderately hemolyzed ALBUMIN (BEAKER) (test lfgv=5987) 3.7 g/dL 3.5-5.0 Specimen moderately hemolyzed BILIRUBIN TOTAL (BEAKER) (test fhmk=917) 0.2 mg/dL 0.2-1.2 Specimen moderately hemolyzed BILIRUBIN DIRECT (BEAKER) (test aqtt=634) 0.1 mg/dL 0.1-0.5 Specimen moderately hemolyzed ALKALINE PHOSPHATASE (BEAKER) (test amdn=528) 161 U/L 40-150 AST (SGOT) (BEAKER) (test rnga=988) 32 U/L 5-34 Specimen moderately hemolyzed ALT (SGPT) (BEAKER) (test gmmb=618) 11 U/L 6-55 Specimen moderately hemolyzed [id number] 19:13:00* Test Item Value Reference Range Comments LIPASE (BEAKER) (test josj=034) 5 U/L 8-78 LACTIC ACID, VENOUS, WHOLE [id number] 19:06:00* Test Item Value Reference Range Comments LACTATE BLOOD VENOUS (2) (BEAKER) (test uaki=1175) 3.9 mmol/L 0.5-2.2 Specimen moderately hemolyzed Effective 02/23/2016: Units/Reference Range ChangeNew: 0.5-2.2 mmol/L Previous: 5 -20 mg/dLCBC W/PLT COUNT & AUTO [id number] 17:44:00* Test Item Value Reference Range Comments WHITE BLOOD CELL COUNT (BEAKER) (test vqmh=640) 13.6 K/ L 3.5-10.5 RED BLOOD CELL COUNT (BEAKER) (test wcmz=695) 4.27 M/ L 3.93-5.22 HEMOGLOBIN (BEAKER) (test smft=011) 9.2 GM/DL 11.2-15.7 HEMATOCRIT (BEAKER) (test edja=859) 31.2 % 34.1-44.9 MEAN CORPUSCULAR VOLUME (BEAKER) (test rngx=498) 73.1 fL 79.4-94.8 MEAN CORPUSCULAR HEMOGLOBIN (BEAKER) (test zmce=187) 21.5 pg 25.6-32.2 MEAN CORPUSCULAR HEMOGLOBIN CONC (BEAKER) (test rljs=963) 29.5 GM/DL 32.2-35.5 RED CELL DISTRIBUTION WIDTH (BEAKER) (test ifwg=797) 17.0 % 11.7-14.4 PLATELET COUNT (BEAKER) (test zwjv=877) 676 K/CU MM 150-450 MEAN PLATELET VOLUME (BEAKER) (test gntb=465) 10.7 fL 9.4-12.3 NUCLEATED RED BLOOD CELLS (BEAKER) (test qfby=403) 0 /100 WBC 0-0 NEUTROPHILS RELATIVE PERCENT (BEAKER) (test kfxs=888) 81 % LYMPHOCYTES RELATIVE PERCENT (BEAKER) (test cera=859) 11 % MONOCYTES RELATIVE PERCENT (BEAKER) (test xmpx=660) 7 % EOSINOPHILS RELATIVE PERCENT (BEAKER) (test vxva=514) 0 % BASOPHILS RELATIVE PERCENT (BEAKER) (test lfeq=295) 1 % NEUTROPHILS ABSOLUTE COUNT (BEAKER) (test dmru=033) 10.94 K/ L 1.56-6.13 LYMPHOCYTES ABSOLUTE COUNT (BEAKER) (test khjg=642) 1.52 K/ L 1.18-3.74 MONOCYTES ABSOLUTE COUNT (BEAKER) (test tewv=411) 0.92 K/ L 0.24-0.36 EOSINOPHILS ABSOLUTE COUNT (BEAKER) (test yfpk=481) 0.05 K/ L 0.04-0.36 BASOPHILS ABSOLUTE COUNT (BEAKER) (test cdul=378) 0.08 K/ L 0.01-0.08 IMMATURE GRANULOCYTES-RELATIVE PERCENT (BEAKER) (test ckri=8847) 1 % 0-1 TISSUE [id number] 09:01:00Surgical Pathology Report Case: [id number] Authorizing Provider: Lula Phillip MD Collected: 01/29/2018 1325 Ordering Location: [facility] Received: 01/29/2018 1417 SERVICES Pathologist: Betsy García MD Specimen: Large Intestine, NOS ILEUM, CECUM, COLON, AND APPENDIX, PARTIAL ILEECTOMY, APPENDECTOMY, AND TOTAL COLECTOMY: - CHRONIC ACTIVE COLITIS, MODERATE - ILEUM WITH NO PATHOLOGIC ALTERATIONS - APPENDIX WITH NO PATHOLOGIC ALTERATIONS - EIGHTEEN BENIGN LYMPH NODES (0/18) Signing Pathologist Direct Phone Line: [phone] signed by Betsy García MD on 02/04/2018 at 9:01 AMSections of the colon from cecum to sigmoid show similar findings. The colon shows architectural distortion of the glandular crypts with increased chronic inflammation in the lamina propria and basal plasmocytosis. There are occasional neutrophilic crypt abscesses. The mucosa is superficially eroded and congested. There is increased fibrosis within the submucosa suggestive of a chronic process. The findings are consistent with the patient's known history of ulcerative colitis. There are focal bacterial colonies, however, no evidence of a significant infectious process. There is no dysplasia or malignancy identified in the examined sections. [id number] colitis with complicationLarge intestineReceived fresh labeled "large intestine" is a total colectomy specimen consisting of a portion of terminal ileum (1.5 cm in length x 5.0 cm in circumference), with attached cecum, ascending, transverse, descending and sigmoid colon (100.0 cm in length and ranging in circumference from 4.5 cm to 6.5 cm), and attached appendix (7.0 cm in length x 0.5 cm in diameter). The serosal surface is purple-munoz to red, dusky and exhibits attached pericolonic adipose tissue measuring up to 5.0 cm in maximum thickness. The colon is opened to reveal pink-munoz dusky focally ulcerated, fo lake edematous mucosa throughout the entire colon with obliteration of the muco frank folds. No discrete masses, fissures, fistulas or perforations are identified . Sectioning of the attached pericolonic adipose tissue reveals multiple pink-ta n possible lymph nodes ranging in size from 0.3 cm to 1.0 cm in greatest dimensi on. Section code: A1, parallel proximal resection margin; A2, parallel distal re section margin; A3, ileocecal valve; A4, appendix; A5-A6, cecum; A7-A8, ascendin g colon; A9-A10, transverse colon; A11-A12, descending colon; A13-A14, sigmoid c olon; A15-A19, multiple intact lymph nodes. DB/plPerformed. PHOSPHORUS 2018-02-01 04:40:00* Test Item Value Reference Range Comments PHOSPHORUS (BEAKER) (test xohm=288) 2.4 mg/dL 2.3-4.7 [id number] 04:40:00* Test Item Value Reference Range Comments MAGNESIUM (BEAKER) (test qnhs=681) 2.0 mg/dL 1.6-2.6 BASIC METABOLIC [id number] 04:40:00* Test Item Value Reference Range Comments SODIUM (BEAKER) (test ptgd=821) 140 meq/L 136-145 POTASSIUM (BEAKER) (test uzrt=708) 3.9 meq/L 3.5-5.1 CHLORIDE (BEAKER) (test rjte=123) 105 meq/L 98-107 CO2 (BEAKER) (test kqmh=167) 25 meq/L 22-29 BLOOD UREA NITROGEN (BEAKER) (test eivz=595) 7 mg/dL 7-21 CREATININE (BEAKER) (test ixqd=604) 0.67 mg/dL 0.57-1.25 GLUCOSE RANDOM (BEAKER) (test rldm=160) 100 mg/dL 70-105 CALCIUM (BEAKER) (test mqoa=492) 9.1 mg/dL 8.4-10.2 EGFR (BEAKER) (test cenr=1769) 100 mL/min/1.73 sq m ESTIMATED GFR IS NOT ACCURATE CREATININE CLEARANCE IN PREDICTING GLOMERULAR FILTRATION RATE. ESTIMATED GFR IS NOT APPLICABLE FOR DIALYSIS PATIENTS. CBC (HEMOGRAM ONLY)2018-02-01 04:21:00* Test Item Value Reference Range Comments WHITE BLOOD CELL COUNT (BEAKER) (test ffrx=848) 25.3 K/ L 3.5-10.5 RED BLOOD CELL COUNT (BEAKER) (test bksk=031) 3.44 M/ L 3.93-5.22 HEMOGLOBIN (BEAKER) (test kijv=440) 7.6 GM/DL 11.2-15.7 HEMATOCRIT (BEAKER) (test rwek=786) 25.9 % 34.1-44.9 MEAN CORPUSCULAR VOLUME (BEAKER) (test adqn=857) 75.3 fL 79.4-94.8 MEAN CORPUSCULAR HEMOGLOBIN (BEAKER) (test xwli=786) 22.1 pg 25.6-32.2 MEAN CORPUSCULAR HEMOGLOBIN CONC (BEAKER) (test pbda=831) 29.3 GM/DL 32.2-35.5 RED CELL DISTRIBUTION WIDTH (BEAKER) (test kttv=574) 15.9 % 11.7-14.4 PLATELET COUNT (BEAKER) (test twrg=960) 546 K/CU MM 150-450 MEAN PLATELET VOLUME (BEAKER) (test exdo=099) 9.6 fL 9.4-12.3 NUCLEATED RED BLOOD CELLS (BEAKER) (test lpvh=688) 0 /100 WBC 0-0 [id number] 05:17:00* Test Item Value Reference Range Comments PHOSPHORUS (BEAKER) (test vomd=234) 2.4 mg/dL 2.3-4.7 [id number] 05:17:00* Test Item Value Reference Range Comments MAGNESIUM (BEAKER) (test ugci=258) 1.9 mg/dL 1.6-2.6 BASIC METABOLIC [id number] 05:17:00* Test Item Value Reference Range Comments SODIUM (BEAKER) (test yxev=164) 137 meq/L 136-145 POTASSIUM (BEAKER) (test npyr=066) 4.0 meq/L 3.5-5.1 CHLORIDE (BEAKER) (test wpcs=073) 105 meq/L 98-107 CO2 (BEAKER) (test xdto=035) 23 meq/L 22-29 BLOOD UREA NITROGEN (BEAKER) (test ncod=066) 5 mg/dL 7-21 CREATININE (BEAKER) (test avip=889) 0.66 mg/dL 0.57-1.25 GLUCOSE RANDOM (BEAKER) (test lhzt=872) 131 mg/dL 70-105 CALCIUM (BEAKER) (test iqsu=521) 9.0 mg/dL 8.4-10.2 EGFR (BEAKER) (test qadq=5528) 101 mL/min/1.73 sq m ESTIMATED GFR IS NOT ACCURATE CREATININE CLEARANCE IN PREDICTING GLOMERULAR FILTRATION RATE. ESTIMATED GFR IS NOT APPLICABLE FOR DIALYSIS PATIENTS. CBC (HEMOGRAM ONLY)2018-01-31 04:44:00* Test Item Value Reference Range Comments WHITE BLOOD CELL COUNT (BEAKER) (test jdgv=484) 30.4 K/ L 3.5-10.5 RED BLOOD CELL COUNT (BEAKER) (test orro=005) 3.55 M/ L 3.93-5.22 HEMOGLOBIN (BEAKER) (test bdnx=664) 7.7 GM/DL 11.2-15.7 HEMATOCRIT (BEAKER) (test qhvi=529) 27.3 % 34.1-44.9 MEAN CORPUSCULAR VOLUME (BEAKER) (test ozof=638) 76.9 fL 79.4-94.8 MEAN CORPUSCULAR HEMOGLOBIN (BEAKER) (test oksx=009) 21.7 pg 25.6-32.2 MEAN CORPUSCULAR HEMOGLOBIN CONC (BEAKER) (test kanr=473) 28.2 GM/DL 32.2-35.5 RED CELL DISTRIBUTION WIDTH (BEAKER) (test bqmw=989) 15.9 % 11.7-14.4 PLATELET COUNT (BEAKER) (test yonc=730) 529 K/CU MM 150-450 MEAN PLATELET VOLUME (BEAKER) (test qkyg=094) 9.8 fL 9.4-12.3 NUCLEATED RED BLOOD CELLS (BEAKER) (test sfjm=130) 0 /100 WBC 0-0 BASIC METABOLIC [id number] 18:11:00* Test Item Value Reference Range Comments SODIUM (BEAKER) (test sqpt=876) 140 meq/L 136-145 POTASSIUM (BEAKER) (test mxxc=514) 4.2 meq/L 3.5-5.1 CHLORIDE (BEAKER) (test awrl=827) 108 meq/L 98-107 CO2 (BEAKER) (test sqpi=527) 23 meq/L 22-29 BLOOD UREA NITROGEN (BEAKER) (test kkfj=351) 3 mg/dL 7-21 CREATININE (BEAKER) (test rxlk=365) 0.74 mg/dL 0.57-1.25 GLUCOSE RANDOM (BEAKER) (test mucs=625) 143 mg/dL 70-105 CALCIUM (BEAKER) (test pthm=140) 9.1 mg/dL 8.4-10.2 EGFR (BEAKER) (test wyfe=4115) 89 mL/min/1.73 sq m ESTIMATED GFR IS NOT ACCURATE CREATININE CLEARANCE IN PREDICTING GLOMERULAR FILTRATION RATE. ESTIMATED GFR IS NOT APPLICABLE FOR DIALYSIS PATIENTS. CBC (HEMOGRAM ONLY)2018-01-30 18:02:00* Test Item Value Reference Range Comments WHITE BLOOD CELL COUNT (BEAKER) (test iayx=143) 29.6 K/ L 3.5-10.5 RED BLOOD CELL COUNT (BEAKER) (test hfps=699) 3.54 M/ L 3.93-5.22 HEMOGLOBIN (BEAKER) (test arqr=880) 7.7 GM/DL 11.2-15.7 HEMATOCRIT (BEAKER) (test gkuq=008) 27.0 % 34.1-44.9 MEAN CORPUSCULAR VOLUME (BEAKER) (test jsqx=455) 76.3 fL 79.4-94.8 MEAN CORPUSCULAR HEMOGLOBIN (BEAKER) (test mjgk=956) 21.8 pg 25.6-32.2 MEAN CORPUSCULAR HEMOGLOBIN CONC (BEAKER) (test rhpy=897) 28.5 GM/DL 32.2-35.5 RED CELL DISTRIBUTION WIDTH (BEAKER) (test weks=833) 15.9 % 11.7-14.4 PLATELET COUNT (BEAKER) (test wcca=267) 522 K/CU MM 150-450 MEAN PLATELET VOLUME (BEAKER) (test ntuu=677) 9.0 fL 9.4-12.3 NUCLEATED RED BLOOD CELLS (BEAKER) (test jref=579) 0 /100 WBC 0-0 [id number] 05:57:00* Test Item Value Reference Range Comments PHOSPHORUS (BEAKER) (test tvgy=188) 4.2 mg/dL 2.3-4.7 [id number] 05:57:00* Test Item Value Reference Range Comments MAGNESIUM (BEAKER) (test hujq=967) 1.8 mg/dL 1.6-2.6 BASIC METABOLIC [id number] 05:57:00* Test Item Value Reference Range Comments SODIUM (BEAKER) (test oacu=968) 138 meq/L 136-145 POTASSIUM (BEAKER) (test qfys=423) 4.4 meq/L 3.5-5.1 CHLORIDE (BEAKER) (test qahg=960) 107 meq/L 98-107 CO2 (BEAKER) (test uhsf=999) 23 meq/L 22-29 BLOOD UREA NITROGEN (BEAKER) (test lyda=497) 5 mg/dL 7-21 CREATININE (BEAKER) (test takj=888) 1.24 mg/dL 0.57-1.25 GLUCOSE RANDOM (BEAKER) (test cyqo=633) 138 mg/dL 70-105 CALCIUM (BEAKER) (test vhft=489) 8.6 mg/dL 8.4-10.2 EGFR (BEAKER) (test wylc=1572) 49 mL/min/1.73 sq m ESTIMATED GFR IS NOT ACCURATE CREATININE CLEARANCE IN PREDICTING GLOMERULAR FILTRATION RATE. ESTIMATED GFR IS NOT APPLICABLE FOR DIALYSIS PATIENTS. CBC (HEMOGRAM ONLY)2018-01-30 05:34:00* Test Item Value Reference Range Comments WHITE BLOOD CELL COUNT (BEAKER) (test mecl=482) 17.5 K/ L 3.5-10.5 RED BLOOD CELL COUNT (BEAKER) (test uizg=058) 3.52 M/ L 3.93-5.22 HEMOGLOBIN (BEAKER) (test uusp=993) 7.5 GM/DL 11.2-15.7 HEMATOCRIT (BEAKER) (test dygj=827) 27.4 % 34.1-44.9 MEAN CORPUSCULAR VOLUME (BEAKER) (test mohr=538) 77.8 fL 79.4-94.8 MEAN CORPUSCULAR HEMOGLOBIN (BEAKER) (test pexl=330) 21.3 pg 25.6-32.2 MEAN CORPUSCULAR HEMOGLOBIN CONC (BEAKER) (test vofa=902) 27.4 GM/DL 32.2-35.5 RED CELL DISTRIBUTION WIDTH (BEAKER) (test hxaw=495) 15.9 % 11.7-14.4 PLATELET COUNT (BEAKER) (test giws=438) 499 K/CU MM 150-450 MEAN PLATELET VOLUME (BEAKER) (test rflb=524) 9.5 fL 9.4-12.3 NUCLEATED RED BLOOD CELLS (BEAKER) (test ihox=824) 0 /100 WBC 0-0 [id number] 07:58:00* Test Item Value Reference Range Comments SODIUM (BEAKER) (test uzue=610) 139 meq/L 136-145 POTASSIUM (BEAKER) (test rdyj=492) 3.7 meq/L 3.5-5.1 CHLORIDE (BEAKER) (test eysz=852) 106 meq/L 98-107 CO2 (BEAKER) (test joop=100) 24 meq/L 22-29 [id number] 07:58:00* Test Item Value Reference Range Comments GLUCOSE RANDOM (BEAKER) (test iozs=926) 85 mg/dL 70-105 BUN AND [id number] 07:58:00* Test Item Value Reference Range Comments BLOOD UREA NITROGEN (BEAKER) (test elzl=734) 15 mg/dL 7-21 CREATININE (BEAKER) (test qddy=501) 0.83 mg/dL 0.57-1.25 EGFR (BEAKER) (test snml=4184) 78 mL/min/1.73 sq m ESTIMATED GFR IS NOT ACCURATE CREATININE CLEARANCE IN PREDICTING GLOMERULAR FILTRATION RATE. ESTIMATED GFR IS NOT APPLICABLE FOR DIALYSIS PATIENTS. [id number] 07:33:00* Test Item Value Reference Range Comments HEMOGLOBIN (BEAKER) (test njpf=850) 8.6 GM/DL 11.2-15.7 TISSUE [id number] 10:35:00Surgical Pathology Report Case: [id number] Authorizing Provider: Lula Phillip MD Collected: 11/06/2017 0950 Ordering Location: [facility] Received: 11/06/2017 1023 SERVICES Pathologist: Veronica Langford MD Specimen: Ovary, Right, RIGHT TUBE AND OVARY OVARY AND FALLOPIAN TUBE, RIGHT, SALPINGO-OOPHORECTOMY: OVARY: - MATURE CYSTIC TERATOMA - HEMORRHAGIC CORPUS LUTEAL CYST FALLOPIAN TUBE: - NO PATHOLOGIC CHANGE Signing Pathologist Direct Phone Line: [phone] signed by Veronica Langford MD on 11/13/2017 at 10:35 [id number], [id number], [id number] ulcerative colitis with rectal bleedingA. Ovary and right fallopian tube The specimen is received fresh for frozen labeled with the patient's name and MRN number as "right ovary" with the description of "right tube and ovary" and consists of a previously opened and disrupted solid and cystic ovarian mass with hair and munoz pasty contents. These fragments measures 6.5 x 6.0 x 2.5 cm in aggregate and weighs 80 gm. The remnant of ovary measures 4.0 x 2.0 x 1.4 cm. On cut sections it contains two cysts each measuring 1.0 cm in greatest dimension. One of the two cysts has a yellow wall, 0.1 cm in maximum thickness with central hemorrhage. The other cyst has a 0.1 cm in thickness wall that is white and the lumen is empty.There is a 5.0 x 4.0 x 3.0 cm nodular lesion that is covered by skin and hair. On cut sections, the center of the lesion is consists of adipose tissue. At the center of the adipose tissue is a bony structure that measures 1.5 x 0.8 x 0.5 cm. There is also a 1.5 cm in diameter irregular bone attached to the base of this specimen.The cystic portion of the mass is munoz-pink and measures 6.0 x 4.0 x 0.3 cm. The fallopian tube measures 5.5 cm in length and 0.5 cm in diameter with a fimbriated end. The fallopian tube is unremarkable by gross examination. Wire Wrapping Machine Operator sections are submitted.Section code: A1FS, soft tissue adjacent to the bone; A2FS, skin and underlying adipose tissue; A3 and A4, soft tissue around the bone; A5 through A7, skin and soft tissue around the small bone; A8 to A11, cyst, entirely submitted; A12 and A13, product support representative sections of remnant of ovary; A14, ovarian cyst with yellow wall; A15, product support representative sections of the fallopian tube; A16, fimbriated end, entirely submitted. ewA1FS AND [id number] TUBE AND OVARY MASS, EXCISION: - TERATOMA IDENTIFIED (6.5 CM) - DEFER TO PERMANENTS TO EVALUATE THE IMMATURE COMPONENT. RESULTS REPORTED BY DR. PILO DAIGLE AT 10:52 A.M.Performed. SCREEN, [id number] 12:17:00* Test Item Value Reference Range Comments TEST URINE (BEAKER) (test mghe=617) Negative [id number] 11:11:00* Test Item Value Reference Range Comments SODIUM (BEAKER) (test wfir=705) 139 meq/L 136-145 POTASSIUM (BEAKER) (test rsyf=417) 4.0 meq/L 3.5-5.1 CHLORIDE (BEAKER) (test crdw=589) 105 meq/L 98-107 CO2 (BEAKER) (test veif=241) 23 meq/L 22-29 [id number] 11:11:00* Test Item Value Reference Range Comments GLUCOSE RANDOM (BEAKER) (test kmok=348) 103 mg/dL 70-105 BUN AND [id number] 11:11:00* Test Item Value Reference Range Comments BLOOD UREA NITROGEN (BEAKER) (test xqqs=402) 9 mg/dL 7-21 CREATININE (BEAKER) (test ulzt=622) 0.84 mg/dL 0.57-1.25 EGFR (BEAKER) (test crju=2455) 77 mL/min/1.73 sq m ESTIMATED GFR IS NOT ACCURATE CREATININE CLEARANCE IN PREDICTING GLOMERULAR FILTRATION RATE. ESTIMATED GFR IS NOT APPLICABLE FOR DIALYSIS PATIENTS. PLATELET [id number] 11:00:00* Test Item Value Reference Range Comments PLATELET COUNT (BEAKER) (test vfyh=477) 579 K/CU MM 150-450 [id number] 10:44:00* Test Item Value Reference Range Comments HEMOGLOBIN (BEAKER) (test ondf=101) 10.0 GM/DL 11.2-15.7 BLOOD [id number] 05:02:00* Test Item Value Reference Range Comments CULTURE (BEAKER) (test gkfh=8582) No growth in 5 days BLOOD [id number] 05:02:00* Test Item Value Reference Range Comments CULTURE (BEAKER) (test oxlc=6818) No growth in 5 days BASIC METABOLIC [id number] 09:49:00* Test Item Value Reference Range Comments SODIUM (BEAKER) (test afmu=671) 140 meq/L 136-145 POTASSIUM (BEAKER) (test zpvv=561) 3.8 meq/L 3.5-5.1 CHLORIDE (BEAKER) (test hvxw=543) 106 meq/L 98-107 CO2 (BEAKER) (test zgaz=288) 25 meq/L 22-29 BLOOD UREA NITROGEN (BEAKER) (test wwcr=675) 8 mg/dL 7-21 CREATININE (BEAKER) (test hyqg=208) 0.68 mg/dL 0.57-1.25 GLUCOSE RANDOM (BEAKER) (test tgls=379) 129 mg/dL 70-105 CALCIUM (BEAKER) (test kfhp=838) 8.8 mg/dL 8.4-10.2 EGFR (BEAKER) (test cadb=0485) 98 mL/min/1.73 sq m ESTIMATED GFR IS NOT ACCURATE CREATININE CLEARANCE IN PREDICTING GLOMERULAR FILTRATION RATE. ESTIMATED GFR IS NOT APPLICABLE FOR DIALYSIS PATIENTS. CBC (HEMOGRAM ONLY)2017-09-18 06:33:00* Test Item Value Reference Range Comments WHITE BLOOD CELL COUNT (BEAKER) (test cuds=651) 16.0 K/ L 3.5-10.5 RED BLOOD CELL COUNT (BEAKER) (test ckbf=741) 3.37 M/ L 3.93-5.22 HEMOGLOBIN (BEAKER) (test kbms=593) 9.0 GM/DL 11.2-15.7 HEMATOCRIT (BEAKER) (test bmpn=156) 29.3 % 34.1-44.9 MEAN CORPUSCULAR VOLUME (BEAKER) (test rffu=002) 86.9 fL 79.4-94.8 MEAN CORPUSCULAR HEMOGLOBIN (BEAKER) (test hfya=159) 26.7 pg 25.6-32.2 MEAN CORPUSCULAR HEMOGLOBIN CONC (BEAKER) (test yojm=052) 30.7 GM/DL 32.2-35.5 RED CELL DISTRIBUTION WIDTH (BEAKER) (test ocrz=777) 15.8 % 11.7-14.4 PLATELET COUNT (BEAKER) (test esjw=764) 450 K/CU MM 150-450 MEAN PLATELET VOLUME (BEAKER) (test optc=589) 10.3 fL 9.4-12.3 NUCLEATED RED BLOOD CELLS (BEAKER) (test pldo=274) 0 /100 WBC 0-0 WOUND CULTURE + GRAM [id number] 16:49:00* Test Item Value Reference Range Comments CULTURE (BEAKER) (test suls=3279) Clindamycin (test code=10) Erythromycin (test code=4) Linezolid (test code=40) Nitrofurantoin (test code=23) Oxacillin (test code=14) Rifampin (test code=43) Tetracycline (test code=2) Trimethoprim + Sulfamethoxazole (test code=47) Vancomycin (test code=13) CULTURE (BEAKER) (test fvuo=5292) 4+ Methicillin resistant Staphylococcus aureus GRAM STAIN RESULT (BEAKER) (test rhsp=6340) 4+ WBCs GRAM STAIN RESULT (BEAKER) (test twam=086196) 1+ gram positive cocci in pairs and clusters STOOL CULTURE + SHIGA [id number] 10:18:00* Test Item Value Reference Range Comments CULTURE (BEAKER) (test nuiq=0690) No Salmonella, Shigella or Campylobacter isolated HEPATIC FUNCTION [id number] 06:29:00* Test Item Value Reference Range Comments TOTAL PROTEIN (BEAKER) (test rucb=568) 6.3 gm/dL 6.0-8.3 ALBUMIN (BEAKER) (test tihf=4085) 3.2 g/dL 3.5-5.0 BILIRUBIN TOTAL (BEAKER) (test urxu=186) < mg/dL 0.2-1.2 BILIRUBIN DIRECT (BEAKER) (test nxfz=014) 0.1 mg/dL 0.1-0.5 ALKALINE PHOSPHATASE (BEAKER) (test suqr=562) 82 U/L 40-150 AST (SGOT) (BEAKER) (test hvyp=426) 8 U/L 5-34 ALT (SGPT) (BEAKER) (test kkrx=607) 14 U/L 6-55 BASIC METABOLIC [id number] 06:29:00* Test Item Value Reference Range Comments SODIUM (BEAKER) (test rnrw=078) 140 meq/L 136-145 POTASSIUM (BEAKER) (test fuhf=272) 4.3 meq/L 3.5-5.1 CHLORIDE (BEAKER) (test lcja=989) 109 meq/L 98-107 CO2 (BEAKER) (test hyrv=740) 22 meq/L 22-29 BLOOD UREA NITROGEN (BEAKER) (test bult=500) 7 mg/dL 7-21 CREATININE (BEAKER) (test vxae=186) 0.67 mg/dL 0.57-1.25 GLUCOSE RANDOM (BEAKER) (test dtjp=890) 131 mg/dL 70-105 CALCIUM (BEAKER) (test xlpp=280) 9.0 mg/dL 8.4-10.2 EGFR (BEAKER) (test fpji=2412) 100 mL/min/1.73 sq m ESTIMATED GFR IS NOT ACCURATE CREATININE CLEARANCE IN PREDICTING GLOMERULAR FILTRATION RATE. ESTIMATED GFR IS NOT APPLICABLE FOR DIALYSIS PATIENTS. CBC W/PLT COUNT & AUTO [id number] 05:54:00* Test Item Value Reference Range Comments WHITE BLOOD CELL COUNT (BEAKER) (test qhmv=165) 15.3 K/ L 3.5-10.5 RED BLOOD CELL COUNT (BEAKER) (test ezjl=722) 3.54 M/ L 3.93-5.22 HEMOGLOBIN (BEAKER) (test hpyd=497) 9.4 GM/DL 11.2-15.7 HEMATOCRIT (BEAKER) (test qkrx=201) 30.9 % 34.1-44.9 MEAN CORPUSCULAR VOLUME (BEAKER) (test sqjn=466) 87.3 fL 79.4-94.8 MEAN CORPUSCULAR HEMOGLOBIN (BEAKER) (test hugw=086) 26.6 pg 25.6-32.2 MEAN CORPUSCULAR HEMOGLOBIN CONC (BEAKER) (test ieqh=363) 30.4 GM/DL 32.2-35.5 RED CELL DISTRIBUTION WIDTH (BEAKER) (test niyx=317) 15.5 % 11.7-14.4 PLATELET COUNT (BEAKER) (test icgv=794) 413 K/CU MM 150-450 MEAN PLATELET VOLUME (BEAKER) (test pzoq=080) 10.2 fL 9.4-12.3 NUCLEATED RED BLOOD CELLS (BEAKER) (test cqbu=748) 0 /100 WBC 0-0 NEUTROPHILS RELATIVE PERCENT (BEAKER) (test sboh=838) 82 % LYMPHOCYTES RELATIVE PERCENT (BEAKER) (test kudz=908) 13 % MONOCYTES RELATIVE PERCENT (BEAKER) (test cltj=280) 4 % EOSINOPHILS RELATIVE PERCENT (BEAKER) (test nepc=917) 0 % BASOPHILS RELATIVE PERCENT (BEAKER) (test bujm=619) 0 % NEUTROPHILS ABSOLUTE COUNT (BEAKER) (test hhpy=714) 12.59 K/ L 1.56-6.13 LYMPHOCYTES ABSOLUTE COUNT (BEAKER) (test pkmu=518) 1.95 K/ L 1.18-3.74 MONOCYTES ABSOLUTE COUNT (BEAKER) (test dvrj=726) 0.54 K/ L 0.24-0.36 EOSINOPHILS ABSOLUTE COUNT (BEAKER) (test lure=913) 0.00 K/ L 0.04-0.36 BASOPHILS ABSOLUTE COUNT (BEAKER) (test nkxw=115) 0.01 K/ L 0.01-0.08 IMMATURE GRANULOCYTES-RELATIVE PERCENT (BEAKER) (test qkft=0411) 1 % 0-1 SHIGA TOXIN [id number] 14:09:00* Test Item Value Reference Range Comments SHIGA TOXIN 1 (BEAKER) (test uuvz=4967) Not detected Not detected SHIGA TOXIN 2 (BEAKER) (test ikqb=6679) Not detected Not detected STOOL PATH [id number] 12:02:00* Test Item Value Reference Range Comments PATHOGEN EXAM CHARGED (BEAKER) (test mzxa=2551) Done HEPATIC FUNCTION [id number] 06:04:00* Test Item Value Reference Range Comments TOTAL PROTEIN (BEAKER) (test oxky=456) 6.2 gm/dL 6.0-8.3 ALBUMIN (BEAKER) (test voad=1308) 3.2 g/dL 3.5-5.0 BILIRUBIN TOTAL (BEAKER) (test qaqx=758) < mg/dL 0.2-1.2 BILIRUBIN DIRECT (BEAKER) (test iaoc=894) 0.1 mg/dL 0.1-0.5 ALKALINE PHOSPHATASE (BEAKER) (test itmt=188) 90 U/L 40-150 AST (SGOT) (BEAKER) (test xsmd=027) 9 U/L 5-34 ALT (SGPT) (BEAKER) (test owql=503) 18 U/L 6-55 BASIC METABOLIC [id number] 06:04:00* Test Item Value Reference Range Comments SODIUM (BEAKER) (test pnnq=580) 135 meq/L 136-145 POTASSIUM (BEAKER) (test mjsf=463) 4.1 meq/L 3.5-5.1 CHLORIDE (BEAKER) (test ofwr=572) 105 meq/L 98-107 CO2 (BEAKER) (test vqze=646) 21 meq/L 22-29 BLOOD UREA NITROGEN (BEAKER) (test yrgc=371) 3 mg/dL 7-21 CREATININE (BEAKER) (test bssy=903) 0.65 mg/dL 0.57-1.25 GLUCOSE RANDOM (BEAKER) (test pnnm=314) 160 mg/dL 70-105 CALCIUM (BEAKER) (test djjq=007) 8.7 mg/dL 8.4-10.2 EGFR (BEAKER) (test ngjr=5658) 104 mL/min/1.73 sq m ESTIMATED GFR IS NOT ACCURATE CREATININE CLEARANCE IN PREDICTING GLOMERULAR FILTRATION RATE. ESTIMATED GFR IS NOT APPLICABLE FOR DIALYSIS PATIENTS. [id number] 05:41:00* Test Item Value Reference Range Comments FERRITIN (BEAKER) (test furg=116) 47 ng/mL 5-275 IRON, TIBC, % SAT. (WITHOUT FERRITIN)2017-09-16 05:20:00* Test Item Value Reference Range Comments IRON (BEAKER) (test nrxb=329) 20 ug/dL 40-160 TOTAL IRON BINDING CAPACITY (BEAKER) (test hplm=212) 269 ug/dL 250-450 IRON % SATURATION (2) (BEAKER) (test sznb=6596) 7 % 20-55 CBC W/PLT COUNT & AUTO [id number] 04:59:00* Test Item Value Reference Range Comments WHITE BLOOD CELL COUNT (BEAKER) (test xatc=416) 7.5 K/ L 3.5-10.5 RED BLOOD CELL COUNT (BEAKER) (test fvpd=450) 3.55 M/ L 3.93-5.22 HEMOGLOBIN (BEAKER) (test aaux=437) 9.5 GM/DL 11.2-15.7 HEMATOCRIT (BEAKER) (test npac=322) 30.9 % 34.1-44.9 MEAN CORPUSCULAR VOLUME (BEAKER) (test ugem=532) 87.0 fL 79.4-94.8 MEAN CORPUSCULAR HEMOGLOBIN (BEAKER) (test zxmt=442) 26.8 pg 25.6-32.2 MEAN CORPUSCULAR HEMOGLOBIN CONC (BEAKER) (test rydh=494) 30.7 GM/DL 32.2-35.5 RED CELL DISTRIBUTION WIDTH (BEAKER) (test ceui=612) 15.3 % 11.7-14.4 PLATELET COUNT (BEAKER) (test iutk=864) 431 K/CU MM 150-450 MEAN PLATELET VOLUME (BEAKER) (test aoyg=452) 9.5 fL 9.4-12.3 NUCLEATED RED BLOOD CELLS (BEAKER) (test czhz=352) 0 /100 WBC 0-0 NEUTROPHILS RELATIVE PERCENT (BEAKER) (test cxcl=155) 78 % LYMPHOCYTES RELATIVE PERCENT (BEAKER) (test iarl=726) 17 % MONOCYTES RELATIVE PERCENT (BEAKER) (test wvkc=546) 4 % EOSINOPHILS RELATIVE PERCENT (BEAKER) (test ofhg=476) 0 % BASOPHILS RELATIVE PERCENT (BEAKER) (test cycw=120) 0 % NEUTROPHILS ABSOLUTE COUNT (BEAKER) (test muzj=833) 5.82 K/ L 1.56-6.13 LYMPHOCYTES ABSOLUTE COUNT (BEAKER) (test hdkp=258) 1.26 K/ L 1.18-3.74 MONOCYTES ABSOLUTE COUNT (BEAKER) (test ndkj=727) 0.28 K/ L 0.24-0.36 EOSINOPHILS ABSOLUTE COUNT (BEAKER) (test lowj=734) 0.00 K/ L 0.04-0.36 BASOPHILS ABSOLUTE COUNT (BEAKER) (test ooql=568) 0.00 K/ L 0.01-0.08 IMMATURE GRANULOCYTES-RELATIVE PERCENT (BEAKER) (test wyna=6861) 1 % 0-1 URINALYSIS W/ [id number] 17:14:00* Test Item Value Reference Range Comments COLOR (BEAKER) (test udjl=708) Light Yellow CLARITY (BEAKER) (test aobh=664) Hazy SPECIFIC GRAVITY UA (BEAKER) (test bshi=516) 1.009 1.001-1.035 PH UA (BEAKER) (test zwnx=013) 5.5 5.0-8.0 PROTEIN UA (BEAKER) (test cber=167) Negative Negative GLUCOSE UA (BEAKER) (test rrqw=296) Negative Negative KETONES UA (BEAKER) (test ivcb=297) 10 mg/dL Negative BILIRUBIN UA (BEAKER) (test pvnk=055) Negative Negative BLOOD UA (BEAKER) (test xhjt=256) Trace Negative NITRITE UA (BEAKER) (test dxmz=772) Negative Negative LEUKOCYTE ESTERASE UA (BEAKER) (test hknp=620) Large Negative UROBILINOGEN UA (BEAKER) (test bfkf=960) 0.2 mg/dL 0.2-1.0 RBC UA (BEAKER) (test macv=413) 7 /HPF WBC UA (BEAKER) (test xnzz=914) 21 /HPF BACTERIA (BEAKER) (test bklv=651) Few MUCUS (BEAKER) (test pvqv=4948) Rare SQUAMOUS EPITHELIAL (BEAKER) (test vzkq=965) 19 /HPF AMORPHOUS CRYSTALS (BEAKER) (test ntav=5316) Rare SOURCE(BEAKER) (test apxk=8790) Urine, Clean Catch SCREEN, [id number] 17:06:00* Test Item Value Reference Range Comments TEST URINE (BEAKER) (test gnac=453) Negative CLOSTRIDIUM DIFFICILE TOXIN [id number] 13:46:00* Test Item Value Reference Range Comments CLOSTRIDIUM DIFFICILE TOXIN, PCR (BEAKER) (test algy=5343) Detected Not Detected This qualitative real-time polymerase chain reaction assay detects the tcdB gene , encoded on the C.difficile pathogenicity locus (PaLoc). The product of tcdB, toxin B, is a cytotoxin essential for causing C.difficile-associated disease (CD AD) and is found in virtually all toxigenic C.difficile.This assay is performed for patients suspected of having either community-acquired or nosocomial CDAD. Accordingly, only symptomatic patients should be tested and formed stools will b e rejected unless ileus is present (i.e., specified when ordering). Patients ma y be colonized with toxigenic C.difficile strains not causing active disease; th erefore, clinical correlation is needed when deciding how to manage patients wit h a positive test result.The assay has not been validated as a test of cure as a mplifiable nucleic acid may persist after effective treatment; therefore, follow -up testing of a positive result is not recommended.HEPATIC FUNCTION PANEL 2017-09-15 08:25:00* Test Item Value Reference Range Comments TOTAL PROTEIN (BEAKER) (test isml=673) 5.8 gm/dL 6.0-8.3 ALBUMIN (BEAKER) (test vpjv=1957) 3.0 g/dL 3.5-5.0 BILIRUBIN TOTAL (BEAKER) (test vgur=012) < mg/dL 0.2-1.2 BILIRUBIN DIRECT (BEAKER) (test kqpt=575) 0.1 mg/dL 0.1-0.5 ALKALINE PHOSPHATASE (BEAKER) (test adzg=760) 93 U/L 40-150 AST (SGOT) (BEAKER) (test qwfc=404) 10 U/L 5-34 ALT (SGPT) (BEAKER) (test jwcd=503) 19 U/L 6-55 BASIC METABOLIC [id number] 08:25:00* Test Item Value Reference Range Comments SODIUM (BEAKER) (test hzns=922) 136 meq/L 136-145 POTASSIUM (BEAKER) (test anzo=101) 4.1 meq/L 3.5-5.1 CHLORIDE (BEAKER) (test ofqr=061) 105 meq/L 98-107 CO2 (BEAKER) (test hkil=420) 25 meq/L 22-29 BLOOD UREA NITROGEN (BEAKER) (test fjla=640) 7 mg/dL 7-21 CREATININE (BEAKER) (test gqbc=980) 0.70 mg/dL 0.57-1.25 GLUCOSE RANDOM (BEAKER) (test ljbh=645) 79 mg/dL 70-105 CALCIUM (BEAKER) (test hcox=069) 8.3 mg/dL 8.4-10.2 EGFR (BEAKER) (test xzjx=3938) 95 mL/min/1.73 sq m ESTIMATED GFR IS NOT ACCURATE CREATININE CLEARANCE IN PREDICTING GLOMERULAR FILTRATION RATE. ESTIMATED GFR IS NOT APPLICABLE FOR DIALYSIS PATIENTS. CBC W/PLT COUNT & AUTO [id number] 07:13:00* Test Item Value Reference Range Comments WHITE BLOOD CELL COUNT (BEAKER) (test kivx=695) 12.3 K/ L 3.5-10.5 RED BLOOD CELL COUNT (BEAKER) (test ztwo=980) 3.51 M/ L 3.93-5.22 HEMOGLOBIN (BEAKER) (test dwjb=240) 9.4 GM/DL 11.2-15.7 HEMATOCRIT (BEAKER) (test xwwk=178) 30.5 % 34.1-44.9 MEAN CORPUSCULAR VOLUME (BEAKER) (test iezr=902) 86.9 fL 79.4-94.8 MEAN CORPUSCULAR HEMOGLOBIN (BEAKER) (test thef=256) 26.8 pg 25.6-32.2 MEAN CORPUSCULAR HEMOGLOBIN CONC (BEAKER) (test topa=898) 30.8 GM/DL 32.2-35.5 RED CELL DISTRIBUTION WIDTH (BEAKER) (test paio=454) 16.1 % 11.7-14.4 PLATELET COUNT (BEAKER) (test iews=687) 459 K/CU MM 150-450 MEAN PLATELET VOLUME (BEAKER) (test mcdx=268) 9.6 fL 9.4-12.3 NUCLEATED RED BLOOD CELLS (BEAKER) (test frnv=695) 0 /100 WBC 0-0 NEUTROPHILS RELATIVE PERCENT (BEAKER) (test tton=024) 61 % LYMPHOCYTES RELATIVE PERCENT (BEAKER) (test xues=366) 27 % MONOCYTES RELATIVE PERCENT (BEAKER) (test xbub=195) 9 % EOSINOPHILS RELATIVE PERCENT (BEAKER) (test cfsm=216) 2 % BASOPHILS RELATIVE PERCENT (BEAKER) (test nccf=489) 0 % NEUTROPHILS ABSOLUTE COUNT (BEAKER) (test chgq=973) 7.46 K/ L 1.56-6.13 LYMPHOCYTES ABSOLUTE COUNT (BEAKER) (test jzbr=705) 3.34 K/ L 1.18-3.74 MONOCYTES ABSOLUTE COUNT (BEAKER) (test ptdc=443) 1.10 K/ L 0.24-0.36 EOSINOPHILS ABSOLUTE COUNT (BEAKER) (test qhvb=219) 0.28 K/ L 0.04-0.36 BASOPHILS ABSOLUTE COUNT (BEAKER) (test syja=614) 0.03 K/ L 0.01-0.08 IMMATURE GRANULOCYTES-RELATIVE PERCENT (BEAKER) (test ybjm=5175) 1 % 0-1 SEDIMENTATION [id number] 03:38:00* Test Item Value Reference Range Comments SEDIMENTATION RATE, ERYTHROCYTE (BEAKER) (test fyyx=086) 41 mm/HR 0-20 C-REACTIVE [id number] 02:15:00* Test Item Value Reference Range Comments C-REACTIVE PROTEIN (BEAKER) (test bbmi=511) 8.72 mg/dL 0.00-0.50 BASIC METABOLIC [id number] 20:58:00* Test Item Value Reference Range Comments SODIUM (BEAKER) (test ipgz=459) 136 meq/L 136-145 POTASSIUM (BEAKER) (test xaqm=879) 3.2 meq/L 3.5-5.1 CHLORIDE (BEAKER) (test mnuv=687) 103 meq/L 98-107 CO2 (BEAKER) (test xiwz=620) 20 meq/L 22-29 BLOOD UREA NITROGEN (BEAKER) (test ejlx=949) 11 mg/dL 7-21 CREATININE (BEAKER) (test seuh=715) 0.76 mg/dL 0.57-1.25 GLUCOSE RANDOM (BEAKER) (test wgnt=713) 78 mg/dL 70-105 CALCIUM (BEAKER) (test cxpo=086) 9.4 mg/dL 8.4-10.2 EGFR (BEAKER) (test eqnv=0551) 87 mL/min/1.73 sq m ESTIMATED GFR IS NOT ACCURATE CREATININE CLEARANCE IN PREDICTING GLOMERULAR FILTRATION RATE. ESTIMATED GFR IS NOT APPLICABLE FOR DIALYSIS PATIENTS. CBC W/PLT COUNT & AUTO [id number] 20:44:00* Test Item Value Reference Range Comments WHITE BLOOD CELL COUNT (BEAKER) (test oebu=132) 12.3 K/ L 3.5-10.5 RED BLOOD CELL COUNT (BEAKER) (test xkuo=882) 4.22 M/ L 3.93-5.22 HEMOGLOBIN (BEAKER) (test vnkd=150) 11.2 GM/DL 11.2-15.7 HEMATOCRIT (BEAKER) (test lfyg=628) 37.0 % 34.1-44.9 MEAN CORPUSCULAR VOLUME (BEAKER) (test jzmi=014) 87.7 fL 79.4-94.8 MEAN CORPUSCULAR HEMOGLOBIN (BEAKER) (test pprh=301) 26.5 pg 25.6-32.2 MEAN CORPUSCULAR HEMOGLOBIN CONC (BEAKER) (test tnls=836) 30.3 GM/DL 32.2-35.5 RED CELL DISTRIBUTION WIDTH (BEAKER) (test hoak=587) 16.0 % 11.7-14.4 PLATELET COUNT (BEAKER) (test bade=748) 497 K/CU MM 150-450 MEAN PLATELET VOLUME (BEAKER) (test wvdz=773) 9.5 fL 9.4-12.3 NUCLEATED RED BLOOD CELLS (BEAKER) (test zair=340) 0 /100 WBC 0-0 NEUTROPHILS RELATIVE PERCENT (BEAKER) (test yjqv=269) 64 % LYMPHOCYTES RELATIVE PERCENT (BEAKER) (test ejsz=524) 25 % MONOCYTES RELATIVE PERCENT (BEAKER) (test cvqi=289) 7 % EOSINOPHILS RELATIVE PERCENT (BEAKER) (test dpzt=791) 3 % BASOPHILS RELATIVE PERCENT (BEAKER) (test lkac=418) 0 % NEUTROPHILS ABSOLUTE COUNT (BEAKER) (test ixeq=335) 7.88 K/ L 1.56-6.13 LYMPHOCYTES ABSOLUTE COUNT (BEAKER) (test vrrd=606) 3.02 K/ L 1.18-3.74 MONOCYTES ABSOLUTE COUNT (BEAKER) (test olfa=288) 0.91 K/ L 0.24-0.36 EOSINOPHILS ABSOLUTE COUNT (BEAKER) (test tpud=262) 0.35 K/ L 0.04-0.36 BASOPHILS ABSOLUTE COUNT (BEAKER) (test ufqh=510) 0.02 K/ L 0.01-0.08 IMMATURE GRANULOCYTES-RELATIVE PERCENT (BEAKER) (test vuta=5414) 1 % 0-1 BLOOD [id number] 00:00:00* Test Item Value Reference Range Comments CULTURE (BEAKER) (test uymi=7536) No growth in 5 days BLOOD [id number] 00:00:00* Test Item Value Reference Range Comments CULTURE (BEAKER) (test jkyo=0347) No growth in 5 days URINE [id number] 09:14:00* Test Item Value Reference Range Comments CULTURE (BEAKER) (test wvkj=8662) >100,000 col/mL Tiesha glabrata <10,000 col/mL gram negative akbar<10,000 col/mL yeast of a second typeWOUND CULTURE + GRAM [id number] 18:26:00* Test Item Value Reference Range Comments CULTURE (BEAKER) (test wewj=0047) Clindamycin (test code=10) Erythromycin (test code=4) Linezolid (test code=40) Nitrofurantoin (test code=23) Oxacillin (test code=14) Rifampin (test code=43) Tetracycline (test code=2) Trimethoprim + Sulfamethoxazole (test code=47) Vancomycin (test code=13) CULTURE (BEAKER) (test xtmy=8128) 4+ Methicillin resistant Staphylococcus aureus GRAM STAIN RESULT (BEAKER) (test hmoq=8403) 3+ WBCs GRAM STAIN RESULT (BEAKER) (test cezb=272627) 2+ gram positive cocci in pairs CBC W/PLT COUNT & AUTO [id number] 04:09:00* Test Item Value Reference Range Comments WHITE BLOOD CELL COUNT (BEAKER) (test fmjm=248) 14.7 K/ L 3.5-10.5 RED BLOOD CELL COUNT (BEAKER) (test wpqb=442) 3.28 M/ L 3.93-5.22 HEMOGLOBIN (BEAKER) (test gudx=552) 9.2 GM/DL 11.2-15.7 HEMATOCRIT (BEAKER) (test ijgp=665) 30.4 % 34.1-44.9 MEAN CORPUSCULAR VOLUME (BEAKER) (test amdi=372) 92.7 fL 79.4-94.8 MEAN CORPUSCULAR HEMOGLOBIN (BEAKER) (test ecns=598) 28.0 pg 25.6-32.2 MEAN CORPUSCULAR HEMOGLOBIN CONC (BEAKER) (test clid=993) 30.3 GM/DL 32.2-35.5 RED CELL DISTRIBUTION WIDTH (BEAKER) (test poux=975) 16.3 % 11.7-14.4 PLATELET COUNT (BEAKER) (test ybtc=061) 386 K/CU MM 150-450 MEAN PLATELET VOLUME (BEAKER) (test aitq=832) 9.4 fL 9.4-12.3 NUCLEATED RED BLOOD CELLS (BEAKER) (test qnfw=455) 0 /100 WBC 0-0 NEUTROPHILS RELATIVE PERCENT (BEAKER) (test xdth=887) 86 % LYMPHOCYTES RELATIVE PERCENT (BEAKER) (test oash=716) 10 % MONOCYTES RELATIVE PERCENT (BEAKER) (test afey=661) 4 % EOSINOPHILS RELATIVE PERCENT (BEAKER) (test mwgu=016) 0 % BASOPHILS RELATIVE PERCENT (BEAKER) (test wrok=347) 0 % NEUTROPHILS ABSOLUTE COUNT (BEAKER) (test cgdk=164) 12.61 K/ L 1.56-6.13 LYMPHOCYTES ABSOLUTE COUNT (BEAKER) (test sung=343) 1.40 K/ L 1.18-3.74 MONOCYTES ABSOLUTE COUNT (BEAKER) (test cina=661) 0.52 K/ L 0.24-0.36 EOSINOPHILS ABSOLUTE COUNT (BEAKER) (test spkk=123) 0.00 K/ L 0.04-0.36 BASOPHILS ABSOLUTE COUNT (BEAKER) (test gdhm=480) 0.02 K/ L 0.01-0.08 IMMATURE GRANULOCYTES-RELATIVE PERCENT (BEAKER) (test aets=5645) 1 % 0-1 BASIC METABOLIC [id number] 04:06:00* Test Item Value Reference Range Comments SODIUM (BEAKER) (test gmjy=868) 140 meq/L 136-145 POTASSIUM (BEAKER) (test thri=099) 3.9 meq/L 3.5-5.1 CHLORIDE (BEAKER) (test tkdd=703) 112 meq/L 98-107 CO2 (BEAKER) (test vinq=836) 22 meq/L 22-29 BLOOD UREA NITROGEN (BEAKER) (test ivkr=637) 7 mg/dL 7-21 CREATININE (BEAKER) (test nxdr=607) 0.66 mg/dL 0.57-1.25 GLUCOSE RANDOM (BEAKER) (test qflk=434) 156 mg/dL 70-105 CALCIUM (BEAKER) (test qpss=729) 8.3 mg/dL 8.4-10.2 EGFR (BEAKER) (test uaqe=1463) 102 mL/min/1.73 sq m ESTIMATED GFR IS NOT ACCURATE CREATININE CLEARANCE IN PREDICTING GLOMERULAR FILTRATION RATE. ESTIMATED GFR IS NOT APPLICABLE FOR DIALYSIS PATIENTS. CMV PCR, [id number] 15:03:00* Test Item Value Reference Range Comments CMV VIRAL LOAD - NEGATIVE (BEAKER) (test nypu=4358) Negative or below the linear range of the assay (<375 copies/mL) Cytomegalovirus (CMV) infection can cause significant disease in immunosuppresse d patients. However, it is common for CMV to manifest as a limited infection whi ch is of no clinical significance in immunosuppressed patients or in healthy ind ividuals.Viral load measurements are helpful to identify clinical CMV infection and to guide the pre-emptive management of antiviral therapy. For treatment of CMV infection due to reactivation in transplant recipients, a threshold between 4,000 and 5,000 copies/mL is suggested. For treatment of primary CMV infection, a lower threshold can be used.CMV infection may also be monitored using weekly serial measurements. Serial measurements of CMV DNA viral load can be evaluated by identifying a 10-fold change, as well as assessing the CMV DNA viral load and the clinical context for each patient.The plasma CMV DNA viral load was detected using quantitative polymerase chain reaction and fluorescent monitoring of a s iSk[employer] hybridized probe. Genetic variation and other factors can affect the acc uracy of nucleic acid testing. Therefore, the results should be interpreted in l ight of clinical data. A negative result may not exclude the presence of CMV dis ease.This test was developed and its performance characteristics determined by malissa delgado [facility] Pathology Department, Section of Molecular Patholog y. It has not been cleared or approved by the U.S. Food and Drug Administration (FDA), since FDA approval is not required for clinical use of the test. Validati on was done as required by The Clinical Laboratory Improvement Amendments of 198 8.BASIC METABOLIC [id number] 07:04:00* Test Item Value Reference Range Comments SODIUM (BEAKER) (test uwnv=252) 137 meq/L 136-145 POTASSIUM (BEAKER) (test ashz=370) 4.8 meq/L 3.5-5.1 Specimen moderately hemolyzed CHLORIDE (BEAKER) (test dplr=569) 107 meq/L 98-107 CO2 (BEAKER) (test gsal=272) 18 meq/L 22-29 BLOOD UREA NITROGEN (BEAKER) (test zfig=146) 2 mg/dL 7-21 CREATININE (BEAKER) (test eagl=676) 0.66 mg/dL 0.57-1.25 Specimen moderately hemolyzed GLUCOSE RANDOM (BEAKER) (test itys=209) 152 mg/dL 70-105 CALCIUM (BEAKER) (test knok=766) 8.9 mg/dL 8.4-10.2 EGFR (BEAKER) (test sugf=7855) 102 mL/min/1.73 sq m ESTIMATED GFR IS NOT ACCURATE CREATININE CLEARANCE IN PREDICTING GLOMERULAR FILTRATION RATE. ESTIMATED GFR IS NOT APPLICABLE FOR DIALYSIS PATIENTS. CBC W/PLT COUNT & AUTO [id number] 06:06:00* Test Item Value Reference Range Comments WHITE BLOOD CELL COUNT (BEAKER) (test gxpx=212) 5.8 K/ L 3.5-10.5 RED BLOOD CELL COUNT (BEAKER) (test dwkc=447) 4.37 M/ L 3.93-5.22 HEMOGLOBIN (BEAKER) (test dbmg=577) 12.3 GM/DL 11.2-15.7 HEMATOCRIT (BEAKER) (test znxw=543) 39.7 % 34.1-44.9 MEAN CORPUSCULAR VOLUME (BEAKER) (test ipvv=068) 90.8 fL 79.4-94.8 MEAN CORPUSCULAR HEMOGLOBIN (BEAKER) (test vjfa=972) 28.1 pg 25.6-32.2 MEAN CORPUSCULAR HEMOGLOBIN CONC (BEAKER) (test lwgn=698) 31.0 GM/DL 32.2-35.5 RED CELL DISTRIBUTION WIDTH (BEAKER) (test bbeu=648) 16.8 % 11.7-14.4 PLATELET COUNT (BEAKER) (test piyo=093) 376 K/CU MM 150-450 MEAN PLATELET VOLUME (BEAKER) (test cbot=412) 9.6 fL 9.4-12.3 NUCLEATED RED BLOOD CELLS (BEAKER) (test ydch=889) 0 /100 WBC 0-0 NEUTROPHILS RELATIVE PERCENT (BEAKER) (test uirm=028) 80 % LYMPHOCYTES RELATIVE PERCENT (BEAKER) (test ofzu=561) 16 % MONOCYTES RELATIVE PERCENT (BEAKER) (test zixo=878) 3 % EOSINOPHILS RELATIVE PERCENT (BEAKER) (test jvux=108) 0 % BASOPHILS RELATIVE PERCENT (BEAKER) (test gcgj=116) 0 % NEUTROPHILS ABSOLUTE COUNT (BEAKER) (test mzfr=964) 4.67 K/ L 1.56-6.13 LYMPHOCYTES ABSOLUTE COUNT (BEAKER) (test uljd=435) 0.91 K/ L 1.18-3.74 MONOCYTES ABSOLUTE COUNT (BEAKER) (test tfpt=452) 0.16 K/ L 0.24-0.36 EOSINOPHILS ABSOLUTE COUNT (BEAKER) (test nqsn=161) 0.00 K/ L 0.04-0.36 BASOPHILS ABSOLUTE COUNT (BEAKER) (test esye=285) 0.01 K/ L 0.01-0.08 IMMATURE GRANULOCYTES-RELATIVE PERCENT (BEAKER) (test fcds=5861) 1 % 0-1 CLOSTRIDIUM DIFFICILE TOXIN [id number] 17:38:00* Test Item Value Reference Range Comments CLOSTRIDIUM DIFFICILE TOXIN, PCR (BEAKER) (test vewg=3772) Not Detected Not Detected This qualitative real-time polymerase chain reaction assay detects the tcdB gene , encoded on the C.difficile pathogenicity locus (PaLoc). The product of tcdB, toxin B, is a cytotoxin essential for causing C.difficile-associated disease (CD AD) and is found in virtually all toxigenic C.difficile.This assay is performed for patients suspected of having either community-acquired or nosocomial CDAD. Accordingly, only symptomatic patients should be tested and formed stools will b e rejected unless ileus is present (i.e., specified when ordering). Patients ma y be colonized with toxigenic C.difficile strains not causing active disease; th erefore, clinical correlation is needed when deciding how to manage patients wit h a positive test result.The assay has not been validated as a test of cure as a mplifiable nucleic acid may persist after effective treatment; therefore, follow -up testing of a positive result is not recommended.SEDIMENTATION [id number] 05:59:00* Test Item Value Reference Range Comments SEDIMENTATION RATE, ERYTHROCYTE (BEAKER) (test njmq=297) 26 mm/HR 0-20 CT, [id number] 05:57:00FINAL REPORT CT scan of the abdomen and pelvis: CLINICAL HISTORY: Abdominal pain. Gastroenteritis or colitis suspected. Comparison exam: CT scan of the abdomen and pelvis 06/24/2017 TECHNIQUE: CT scan of the abdomen and pelvis with intravenous contrast. FINDINGS: Normal lung bases. Normal heart. Normal liver, spleen, pancreas, and gallbladder. Medium-sized hiatus hernia. Circumferential colonic wall thickening compatible with a pancolitis. Normal appendix. No free intraperitoneal air. No mesenteric or retroperitoneal lymphadenopathy. Normal aorta. Patent mesenteric arteries. Normal adrenal glands. Punctate bilateral renal stones. No hydronephrosis or ureteral stones. 6.0 x 6.9 x 7.0 cm right sided dermoid cyst/tumor containing fatty, osseous, and fluid elements. 1.8 x 2.5 cm left ovarian cyst/dominant follicle. Normal uterus. Normal bladder. No acute or significant skeletal abnormalities. Very small fat-containing umbilical hernia. IMPRESSION: 1. Pancolitis, similar to the CT scan of 06/24/2017. 2. 6.0 x 6.9 x 7.0 cm right sided dermoid cyst/tumor containing fatty, osseous, and fluid elements. 3. Punctate bilateral renal stones. No ureteral stones or hydronephros is. 4. Moderate hiatus hernia. Signed: Solomon Auguste MDReport Verified Date/Time : 08/14/2017 05:57:38 Reading Location: [facility] [id number] [facility] Consult Reading Room ALYSIS W/ [id number] 04:56:00* Test Item Value Reference Range Comments COLOR (BEAKER) (test klas=185) Yellow CLARITY (BEAKER) (test mrdq=445) Hazy SPECIFIC GRAVITY UA (BEAKER) (test uelw=545) 1.013 1.001-1.035 PH UA (BEAKER) (test acep=024) 6.0 5.0-8.0 PROTEIN UA (BEAKER) (test bcsv=044) 20 mg/dL Negative GLUCOSE UA (BEAKER) (test lvbq=698) Negative Negative KETONES UA (BEAKER) (test ayef=029) 60 mg/dL Negative BILIRUBIN UA (BEAKER) (test djhi=753) Negative Negative BLOOD UA (BEAKER) (test bccg=808) Trace Negative NITRITE UA (BEAKER) (test qemj=033) Negative Negative LEUKOCYTE ESTERASE UA (BEAKER) (test jrhh=270) Moderate Negative UROBILINOGEN UA (BEAKER) (test wktt=471) 0.2 mg/dL 0.2-1.0 RBC UA (BEAKER) (test mvbo=137) 1 /HPF WBC UA (BEAKER) (test odev=856) 12 /HPF BACTERIA (BEAKER) (test yncr=443) Rare MUCUS (BEAKER) (test osog=7985) Many SQUAMOUS EPITHELIAL (BEAKER) (test fgvq=104) 24 /HPF YEAST (BEAKER) (test qvbw=3620) Rare SOURCE(BEAKER) (test kbwk=2390) Urine, Voided C-REACTIVE [id number] 02:40:00* Test Item Value Reference Range Comments C-REACTIVE PROTEIN (BEAKER) (test vhnm=217) 6.38 mg/dL 0.00-0.50 [id number] 20:13:00* Test Item Value Reference Range Comments LIPASE (BEAKER) (test qgiz=508) 4 U/L 8-78 [id number] 20:13:00* Test Item Value Reference Range Comments AMYLASE (BEAKER) (test hazv=807) 48 U/L 25-125 BASIC METABOLIC [id number] 20:13:00* Test Item Value Reference Range Comments SODIUM (BEAKER) (test udau=311) 133 meq/L 136-145 POTASSIUM (BEAKER) (test ebhu=283) 3.9 meq/L 3.5-5.1 CHLORIDE (BEAKER) (test xzoe=849) 99 meq/L 98-107 CO2 (BEAKER) (test suvq=585) 21 meq/L 22-29 BLOOD UREA NITROGEN (BEAKER) (test dwlx=013) 8 mg/dL 7-21 CREATININE (BEAKER) (test pssb=424) 0.79 mg/dL 0.57-1.25 GLUCOSE RANDOM (BEAKER) (test voxz=929) 116 mg/dL 70-105 CALCIUM (BEAKER) (test dyjj=310) 9.3 mg/dL 8.4-10.2 EGFR (BEAKER) (test uyno=7317) 83 mL/min/1.73 sq m ESTIMATED GFR IS NOT ACCURATE CREATININE CLEARANCE IN PREDICTING GLOMERULAR FILTRATION RATE. ESTIMATED GFR IS NOT APPLICABLE FOR DIALYSIS PATIENTS. HEPATIC FUNCTION [id number] 20:13:00* Test Item Value Reference Range Comments TOTAL PROTEIN (BEAKER) (test hffs=797) 7.4 gm/dL 6.0-8.3 ALBUMIN (BEAKER) (test jimh=7197) 3.8 g/dL 3.5-5.0 BILIRUBIN TOTAL (BEAKER) (test croe=252) 0.3 mg/dL 0.2-1.2 BILIRUBIN DIRECT (BEAKER) (test oyil=794) 0.1 mg/dL 0.1-0.5 ALKALINE PHOSPHATASE (BEAKER) (test wvmo=848) 99 U/L 40-150 AST (SGOT) (BEAKER) (test lzzb=070) 16 U/L 5-34 ALT (SGPT) (BEAKER) (test hznr=426) 43 U/L 6-55 LACTIC ACID, VENOUS, WHOLE [id number] 20:09:00* Test Item Value Reference Range Comments LACTATE BLOOD VENOUS (2) (BEAKER) (test ijap=6792) 1.4 mmol/L 0.5-2.2 Specimen markedly hemolyzed Effective 02/23/2016: Units/Reference Range ChangeNew: 0.5-2.2 mmol/L Previous: 5 -20 mg/dLCBC W/PLT COUNT & AUTO [id number] 19:59:00* Test Item Value Reference Range Comments WHITE BLOOD CELL COUNT (BEAKER) (test oqif=948) 11.4 K/ L 3.5-10.5 RED BLOOD CELL COUNT (BEAKER) (test brxq=438) 4.73 M/ L 3.93-5.22 HEMOGLOBIN (BEAKER) (test bmfd=845) 12.9 GM/DL 11.2-15.7 HEMATOCRIT (BEAKER) (test kfyi=499) 42.3 % 34.1-44.9 MEAN CORPUSCULAR VOLUME (BEAKER) (test wihp=118) 89.4 fL 79.4-94.8 MEAN CORPUSCULAR HEMOGLOBIN (BEAKER) (test ogqb=019) 27.3 pg 25.6-32.2 MEAN CORPUSCULAR HEMOGLOBIN CONC (BEAKER) (test evdo=363) 30.5 GM/DL 32.2-35.5 RED CELL DISTRIBUTION WIDTH (BEAKER) (test onsm=808) 16.4 % 11.7-14.4 PLATELET COUNT (BEAKER) (test stpq=008) 508 K/CU MM 150-450 MEAN PLATELET VOLUME (BEAKER) (test khus=674) 9.1 fL 9.4-12.3 NUCLEATED RED BLOOD CELLS (BEAKER) (test ohgh=227) 0 /100 WBC 0-0 NEUTROPHILS RELATIVE PERCENT (BEAKER) (test hsmg=378) 69 % LYMPHOCYTES RELATIVE PERCENT (BEAKER) (test hdmo=460) 19 % MONOCYTES RELATIVE PERCENT (BEAKER) (test oxkl=482) 8 % EOSINOPHILS RELATIVE PERCENT (BEAKER) (test asbz=090) 2 % BASOPHILS RELATIVE PERCENT (BEAKER) (test rfcg=313) 1 % NEUTROPHILS ABSOLUTE COUNT (BEAKER) (test kmnf=252) 7.89 K/ L 1.56-6.13 LYMPHOCYTES ABSOLUTE COUNT (BEAKER) (test lrxe=588) 2.20 K/ L 1.18-3.74 MONOCYTES ABSOLUTE COUNT (BEAKER) (test milo=856) 0.92 K/ L 0.24-0.36 EOSINOPHILS ABSOLUTE COUNT (BEAKER) (test qhkg=686) 0.27 K/ L 0.04-0.36 BASOPHILS ABSOLUTE COUNT (BEAKER) (test txsk=240) 0.06 K/ L 0.01-0.08 IMMATURE GRANULOCYTES-RELATIVE PERCENT (BEAKER) (test cjms=5391) 1 % 0-1 BLOOD [id number] 11:00:00* Test Item Value Reference Range Comments CULTURE (BEAKER) (test anfy=9085) No growth in 5 days BLOOD [id number] 11:00:00* Test Item Value Reference Range Comments CULTURE (BEAKER) (test fqto=2456) No growth in 5 days WOUND CULTURE + GRAM [id number] 12:12:00* Test Item Value Reference Range Comments CULTURE (BEAKER) (test bdhs=6563) Clindamycin (test code=10) Erythromycin (test code=4) Linezolid (test code=40) Nitrofurantoin (test code=23) Oxacillin (test code=14) Rifampin (test code=43) Tetracycline (test code=2) Trimethoprim + Sulfamethoxazole (test code=47) Vancomycin (test code=13) CULTURE (BEAKER) (test xwrk=6194) 4+ Methicillin resistant Staphylococcus aureus GRAM STAIN RESULT (BEAKER) (test cmpp=9292) 2+ WBCs GRAM STAIN RESULT (BEAKER) (test itsm=984608) 4+ gram positive cocci in pairs and clusters BASIC METABOLIC [id number] 06:34:00* Test Item Value Reference Range Comments SODIUM (BEAKER) (test iepw=319) 136 meq/L 136-145 POTASSIUM (BEAKER) (test kmdg=857) 3.9 meq/L 3.5-5.1 CHLORIDE (BEAKER) (test owyw=656) 102 meq/L 98-107 CO2 (BEAKER) (test npzp=808) 24 meq/L 22-29 BLOOD UREA NITROGEN (BEAKER) (test ddxg=689) 13 mg/dL 7-21 CREATININE (BEAKER) (test awwi=038) 0.68 mg/dL 0.57-1.25 GLUCOSE RANDOM (BEAKER) (test wauv=920) 101 mg/dL 70-105 CALCIUM (BEAKER) (test fhth=660) 9.0 mg/dL 8.4-10.2 EGFR (BEAKER) (test nzzt=4473) 98 mL/min/1.73 sq m ESTIMATED GFR IS NOT ACCURATE CREATININE CLEARANCE IN PREDICTING GLOMERULAR FILTRATION RATE. ESTIMATED GFR IS NOT APPLICABLE FOR DIALYSIS PATIENTS. CBC W/PLT COUNT & AUTO [id number] 05:50:00* Test Item Value Reference Range Comments WHITE BLOOD CELL COUNT (BEAKER) (test xnkg=983) 10.0 K/ L 3.5-10.5 RED BLOOD CELL COUNT (BEAKER) (test vbpu=344) 3.81 M/ L 3.93-5.22 HEMOGLOBIN (BEAKER) (test pxqw=348) 10.7 GM/DL 11.2-15.7 HEMATOCRIT (BEAKER) (test mhnr=449) 35.0 % 34.1-44.9 MEAN CORPUSCULAR VOLUME (BEAKER) (test xpfc=748) 91.9 fL 79.4-94.8 MEAN CORPUSCULAR HEMOGLOBIN (BEAKER) (test zxbv=081) 28.1 pg 25.6-32.2 MEAN CORPUSCULAR HEMOGLOBIN CONC (BEAKER) (test gybi=890) 30.6 GM/DL 32.2-35.5 RED CELL DISTRIBUTION WIDTH (BEAKER) (test sjds=504) 17.4 % 11.7-14.4 PLATELET COUNT (BEAKER) (test dqko=957) 489 K/CU MM 150-450 MEAN PLATELET VOLUME (BEAKER) (test dbnh=788) 9.8 fL 9.4-12.3 NUCLEATED RED BLOOD CELLS (BEAKER) (test sbxq=698) 0 /100 WBC 0-0 NEUTROPHILS RELATIVE PERCENT (BEAKER) (test ggli=408) 54 % LYMPHOCYTES RELATIVE PERCENT (BEAKER) (test zhsh=251) 29 % MONOCYTES RELATIVE PERCENT (BEAKER) (test zuuv=065) 11 % EOSINOPHILS RELATIVE PERCENT (BEAKER) (test jbpr=740) 4 % BASOPHILS RELATIVE PERCENT (BEAKER) (test cpuc=105) 0 % NEUTROPHILS ABSOLUTE COUNT (BEAKER) (test oadl=359) 5.43 K/ L 1.56-6.13 LYMPHOCYTES ABSOLUTE COUNT (BEAKER) (test cbgj=423) 2.90 K/ L 1.18-3.74 MONOCYTES ABSOLUTE COUNT (BEAKER) (test twqf=311) 1.13 K/ L 0.24-0.36 EOSINOPHILS ABSOLUTE COUNT (BEAKER) (test xeor=141) 0.40 K/ L 0.04-0.36 BASOPHILS ABSOLUTE COUNT (BEAKER) (test hfqw=064) 0.04 K/ L 0.01-0.08 IMMATURE GRANULOCYTES-RELATIVE PERCENT (BEAKER) (test iauu=5881) 1 % 0-1 CLOSTRIDIUM DIFFICILE TOXIN [id number] 13:52:00* Test Item Value Reference Range Comments CLOSTRIDIUM DIFFICILE TOXIN, PCR (BEAKER) (test fepj=9502) Not Detected Not Detected This qualitative real-time polymerase chain reaction assay detects the tcdB gene , encoded on the C.difficile pathogenicity locus (PaLoc). The product of tcdB, toxin B, is a cytotoxin essential for causing C.difficile-associated disease (CD AD) and is found in virtually all toxigenic C.difficile.This assay is performed for patients suspected of having either community-acquired or nosocomial CDAD. Accordingly, only symptomatic patients should be tested and formed stools will b e rejected unless ileus is present (i.e., specified when ordering). Patients ma y be colonized with toxigenic C.difficile strains not causing active disease; th erefore, clinical correlation is needed when deciding how to manage patients wit h a positive test result.The assay has not been validated as a test of cure as a mplifiable nucleic acid may persist after effective treatment; therefore, follow -up testing of a positive result is not recommended.[id number] 10:25:00 * Test Item Value Reference Range Comments MAGNESIUM (BEAKER) (test kqqh=278) 1.8 mg/dL 1.6-2.6 BASIC METABOLIC [id number] 10:25:00* Test Item Value Reference Range Comments SODIUM (BEAKER) (test fxdr=033) 139 meq/L 136-145 POTASSIUM (BEAKER) (test hssx=115) 3.8 meq/L 3.5-5.1 CHLORIDE (BEAKER) (test qhro=545) 102 meq/L 98-107 CO2 (BEAKER) (test pgow=498) 25 meq/L 22-29 BLOOD UREA NITROGEN (BEAKER) (test etfn=091) 14 mg/dL 7-21 CREATININE (BEAKER) (test dxxa=294) 0.73 mg/dL 0.57-1.25 GLUCOSE RANDOM (BEAKER) (test lrbc=067) 117 mg/dL 70-105 CALCIUM (BEAKER) (test pikn=036) 9.4 mg/dL 8.4-10.2 EGFR (BEAKER) (test ibvc=9269) 91 mL/min/1.73 sq m ESTIMATED GFR IS NOT ACCURATE CREATININE CLEARANCE IN PREDICTING GLOMERULAR FILTRATION RATE. ESTIMATED GFR IS NOT APPLICABLE FOR DIALYSIS PATIENTS. VANCOMYCIN LEVEL, [id number] 10:24:00* Test Item Value Reference Range Comments VANCOMYCIN TROUGH (BEAKER) (test gudc=978) 8.8 ug/mL 10.0-20.0 CBC W/PLT COUNT & AUTO [id number] 10:11:00* Test Item Value Reference Range Comments WHITE BLOOD CELL COUNT (BEAKER) (test nyam=002) 14.2 K/ L 3.5-10.5 RED BLOOD CELL COUNT (BEAKER) (test ulcg=499) 3.92 M/ L 3.93-5.22 HEMOGLOBIN (BEAKER) (test fvvc=803) 11.2 GM/DL 11.2-15.7 HEMATOCRIT (BEAKER) (test bwcw=639) 36.4 % 34.1-44.9 MEAN CORPUSCULAR VOLUME (BEAKER) (test psik=629) 92.9 fL 79.4-94.8 MEAN CORPUSCULAR HEMOGLOBIN (BEAKER) (test unnc=707) 28.6 pg 25.6-32.2 MEAN CORPUSCULAR HEMOGLOBIN CONC (BEAKER) (test azyh=459) 30.8 GM/DL 32.2-35.5 RED CELL DISTRIBUTION WIDTH (BEAKER) (test ntmt=627) 17.7 % 11.7-14.4 PLATELET COUNT (BEAKER) (test dyvd=408) 442 K/CU MM 150-450 MEAN PLATELET VOLUME (BEAKER) (test cfog=516) 9.7 fL 9.4-12.3 NUCLEATED RED BLOOD CELLS (BEAKER) (test fepa=081) 0 /100 WBC 0-0 NEUTROPHILS RELATIVE PERCENT (BEAKER) (test nogi=202) 67 % LYMPHOCYTES RELATIVE PERCENT (BEAKER) (test ygqe=752) 20 % MONOCYTES RELATIVE PERCENT (BEAKER) (test biuc=803) 8 % EOSINOPHILS RELATIVE PERCENT (BEAKER) (test gkvl=249) 4 % BASOPHILS RELATIVE PERCENT (BEAKER) (test elmm=247) 0 % NEUTROPHILS ABSOLUTE COUNT (BEAKER) (test qfwi=369) 9.53 K/ L 1.56-6.13 LYMPHOCYTES ABSOLUTE COUNT (BEAKER) (test marr=210) 2.83 K/ L 1.18-3.74 MONOCYTES ABSOLUTE COUNT (BEAKER) (test fmxw=410) 1.07 K/ L 0.24-0.36 EOSINOPHILS ABSOLUTE COUNT (BEAKER) (test ogmc=712) 0.60 K/ L 0.04-0.36 BASOPHILS ABSOLUTE COUNT (BEAKER) (test hzii=303) 0.04 K/ L 0.01-0.08 IMMATURE GRANULOCYTES-RELATIVE PERCENT (BEAKER) (test jpyz=4310) 1 % 0-1 BASIC METABOLIC [id number] 06:45:00* Test Item Value Reference Range Comments SODIUM (BEAKER) (test glok=214) 139 meq/L 136-145 POTASSIUM (BEAKER) (test liif=104) 4.3 meq/L 3.5-5.1 Specimen slightly hemolyzed CHLORIDE (BEAKER) (test zsvj=944) 107 meq/L 98-107 CO2 (BEAKER) (test kmpw=581) 23 meq/L 22-29 BLOOD UREA NITROGEN (BEAKER) (test otyg=541) 18 mg/dL 7-21 CREATININE (BEAKER) (test vpmv=696) 0.65 mg/dL 0.57-1.25 Specimen slightly hemolyzed GLUCOSE RANDOM (BEAKER) (test fpha=345) 92 mg/dL 70-105 CALCIUM (BEAKER) (test tkin=401) 9.3 mg/dL 8.4-10.2 EGFR (BEAKER) (test qyvu=6563) 104 mL/min/1.73 sq m ESTIMATED GFR IS NOT ACCURATE CREATININE CLEARANCE IN PREDICTING GLOMERULAR FILTRATION RATE. ESTIMATED GFR IS NOT APPLICABLE FOR DIALYSIS PATIENTS. CBC W/PLT COUNT & AUTO [id number] 06:40:00* Test Item Value Reference Range Comments WHITE BLOOD CELL COUNT (BEAKER) (test kpqb=485) 13.6 K/ L 3.5-10.5 RED BLOOD CELL COUNT (BEAKER) (test nzcf=486) 4.19 M/ L 3.93-5.22 HEMOGLOBIN (BEAKER) (test qmyh=217) 11.8 GM/DL 11.2-15.7 HEMATOCRIT (BEAKER) (test qrdd=062) 39.6 % 34.1-44.9 MEAN CORPUSCULAR VOLUME (BEAKER) (test tagn=672) 94.5 fL 79.4-94.8 MEAN CORPUSCULAR HEMOGLOBIN (BEAKER) (test fmtl=595) 28.2 pg 25.6-32.2 MEAN CORPUSCULAR HEMOGLOBIN CONC (BEAKER) (test odko=504) 29.8 GM/DL 32.2-35.5 RED CELL DISTRIBUTION WIDTH (BEAKER) (test ykeu=792) 18.1 % 11.7-14.4 PLATELET COUNT (BEAKER) (test keur=774) 380 K/CU MM 150-450 MEAN PLATELET VOLUME (BEAKER) (test tyxz=920) 10.4 fL 9.4-12.3 NUCLEATED RED BLOOD CELLS (BEAKER) (test xidz=043) 0 /100 WBC 0-0 NEUTROPHILS RELATIVE PERCENT (BEAKER) (test srjp=602) 60 % LYMPHOCYTES RELATIVE PERCENT (BEAKER) (test ywpk=584) 26 % MONOCYTES RELATIVE PERCENT (BEAKER) (test dtap=678) 8 % EOSINOPHILS RELATIVE PERCENT (BEAKER) (test seji=460) 5 % BASOPHILS RELATIVE PERCENT (BEAKER) (test fzhm=528) 0 % NEUTROPHILS ABSOLUTE COUNT (BEAKER) (test ftff=994) 8.12 K/ L 1.56-6.13 LYMPHOCYTES ABSOLUTE COUNT (BEAKER) (test pqkd=970) 3.56 K/ L 1.18-3.74 MONOCYTES ABSOLUTE COUNT (BEAKER) (test ppnq=550) 1.07 K/ L 0.24-0.36 EOSINOPHILS ABSOLUTE COUNT (BEAKER) (test rvwc=748) 0.69 K/ L 0.04-0.36 BASOPHILS ABSOLUTE COUNT (BEAKER) (test syby=641) 0.05 K/ L 0.01-0.08 IMMATURE GRANULOCYTES-RELATIVE PERCENT (BEAKER) (test lggh=0820) 1 % 0-1 TISSUE [id number] 14:56:00Surgical Pathology Report Case: [id number] Authorizing Provider: Bruno Croft, Collected: 07/19/2017 1316 Ordering Location: [address] Received: 07/19/2017 1452 Service Pathologist: Marty Cannon MD Specimens: A) - Colon Biopsy, Random, random colon bx right colon r/o cmv B) - Colon Biopsy, Random, random left colon bx r/o cmv PART A RANDOM RIGHT COLON BIOPSY:ACTIVE CHRONIC COLITIS.NEGATIVE FOR GRANULOMAS, DYSPLASIA OR INVASIVE CARCINOMA.CMV IMMUNOSTAIN IS NEGATIVEPART B RANDOM LEFT COLON BIOPSY:ACTIVE CHRONIC COLITIS.NEGATIVE FOR GRANULOMAS, DYSPLASIA OR INVASIVE CARCINOMA.PROMINENT REACTIVE LYMPHOID AGGREGATE.CMV IMMUNOSTAIN IS NEGATIVE Signing Pathologist Direct Phone Line: [phone] signed by Marty Cannon MD on 07/23/2017 at 2:56 PMPreliminary result electronically signed by Marty Cannon MD on 07/20/2017 at 2:31 PMPART B: Immunohistochemical studies demonstrate the aggregate to be comprised of CD20 positive B cells and CD3/CD5 positive T cells. There is no aberrant co-expression of CD20 and CD5. The fi ndings are those of a benign reactive lymphoid process.[id number], [id number], [id number] Ulcerative colitis with complication, rule out CMVA. Random right colon biopsy; B. Random left colon biopsySpecimen A: Received in formalin labeled "colon biops y, random", description "random colon biopsy right colon" are multiple fragments measuring 1.3 x 1.0 x 0.1 cm in aggregate. Entirely submitted A1.Specimen B: Re ceived in formalin labeled "colon biopsy, random", description "random left colo n biopsy" are multiple fragments measuring 0.8 x 0.6 x 0.1 cm in aggregate. Enti rely submitted B1. DB/plThe following special studies were performed on this bruna e and the interpretation is incorporated in the diagnostic report above:BLOCK A1 - CMVBLOCK B1- CMV, CD20, CD5, CD3The immunohistochemistry test was developed an d its performance characteristics determined by [facility]. It has not been cleared or approved by the U.S. Food and Stepan g Administration. The FDA has determined that such clearance or approval is not necessary. The test is used for clinical purposes. It should not be regarded as investigational or for research. This laboratory is certified under the Clinical Laboratory Improvement Amendments of 1988 (CLIA-88) as qualified to perform high complexity clinical laboratory testing.SEDIMENTATION [id number] 08:38:00* Test Item Value Reference Range Comments SEDIMENTATION RATE, ERYTHROCYTE (BEAKER) (test hfiv=998) 15 mm/HR 0-20 BASIC METABOLIC [id number] 05:48:00* Test Item Value Reference Range Comments SODIUM (BEAKER) (test aear=952) 138 meq/L 136-145 POTASSIUM (BEAKER) (test esfa=655) 3.6 meq/L 3.5-5.1 CHLORIDE (BEAKER) (test sfnb=442) 105 meq/L 98-107 CO2 (BEAKER) (test kgpl=795) 25 meq/L 22-29 BLOOD UREA NITROGEN (BEAKER) (test zndz=413) 11 mg/dL 7-21 CREATININE (BEAKER) (test zgmv=526) 0.69 mg/dL 0.57-1.25 GLUCOSE RANDOM (BEAKER) (test acfv=578) 85 mg/dL 70-105 CALCIUM (BEAKER) (test yohe=388) 8.7 mg/dL 8.4-10.2 EGFR (BEAKER) (test djyd=5697) 97 mL/min/1.73 sq m ESTIMATED GFR IS NOT ACCURATE CREATININE CLEARANCE IN PREDICTING GLOMERULAR FILTRATION RATE. ESTIMATED GFR IS NOT APPLICABLE FOR DIALYSIS PATIENTS. C-REACTIVE [id number] 05:48:00* Test Item Value Reference Range Comments C-REACTIVE PROTEIN (BEAKER) (test mugo=052) 0.67 mg/dL 0.00-0.50 CBC W/PLT COUNT & AUTO [id number] 05:19:00* Test Item Value Reference Range Comments WHITE BLOOD CELL COUNT (BEAKER) (test mgus=965) 17.6 K/ L 3.5-10.5 RED BLOOD CELL COUNT (BEAKER) (test bqqq=449) 3.99 M/ L 3.93-5.22 HEMOGLOBIN (BEAKER) (test pqhg=363) 11.1 GM/DL 11.2-15.7 HEMATOCRIT (BEAKER) (test wdvk=254) 35.9 % 34.1-44.9 MEAN CORPUSCULAR VOLUME (BEAKER) (test zzyq=483) 90.0 fL 79.4-94.8 MEAN CORPUSCULAR HEMOGLOBIN (BEAKER) (test spld=717) 27.8 pg 25.6-32.2 MEAN CORPUSCULAR HEMOGLOBIN CONC (BEAKER) (test lowg=531) 30.9 GM/DL 32.2-35.5 RED CELL DISTRIBUTION WIDTH (BEAKER) (test vewx=263) 16.0 % 11.7-14.4 PLATELET COUNT (BEAKER) (test part=209) 367 K/CU MM 150-450 MEAN PLATELET VOLUME (BEAKER) (test mztl=097) 9.6 fL 9.4-12.3 NUCLEATED RED BLOOD CELLS (BEAKER) (test cjck=225) 0 /100 WBC 0-0 NEUTROPHILS RELATIVE PERCENT (BEAKER) (test naph=718) 72 % LYMPHOCYTES RELATIVE PERCENT (BEAKER) (test hbwe=931) 15 % MONOCYTES RELATIVE PERCENT (BEAKER) (test nbjh=660) 7 % EOSINOPHILS RELATIVE PERCENT (BEAKER) (test jner=275) 1 % BASOPHILS RELATIVE PERCENT (BEAKER) (test yfza=426) 0 % NEUTROPHILS ABSOLUTE COUNT (BEAKER) (test aqao=201) 12.69 K/ L 1.56-6.13 LYMPHOCYTES ABSOLUTE COUNT (BEAKER) (test fnyc=571) 2.58 K/ L 1.18-3.74 MONOCYTES ABSOLUTE COUNT (BEAKER) (test zzwa=244) 1.14 K/ L 0.24-0.36 EOSINOPHILS ABSOLUTE COUNT (BEAKER) (test pyau=078) 0.14 K/ L 0.04-0.36 BASOPHILS ABSOLUTE COUNT (BEAKER) (test wses=310) 0.06 K/ L 0.01-0.08 IMMATURE GRANULOCYTES-RELATIVE PERCENT (BEAKER) (test gvpj=6145) 6 % 0-1 RAD, ABDOMEN/KUB, 1 VIEW [id number] 16:51:00Reason for exam:->pt with UC with significant diarrhea despite normal inflammatory markers, evaluatre for SB dilatationFINAL REPORT Comparison: 06/27/2017 Discussion: Abdomen: Bowel gas pattern is nonobstructed. There is no free intraperitoneal air. No soft tissue abnormalities. No acute skeletal abnormality. Impression: 1. Nonspecific bowel gas pattern. Signed: Edson Coffman MDReport Verified Date/Time: 07/21/2017 16:51:34 Reading Location: [address] Transitional Reading Room C METABOLIC [id number] 05:11:00* Test Item Value Reference Range Comments SODIUM (BEAKER) (test sicg=539) 139 meq/L 136-145 POTASSIUM (BEAKER) (test zmdh=614) 3.3 meq/L 3.5-5.1 CHLORIDE (BEAKER) (test mmwd=971) 103 meq/L 98-107 CO2 (BEAKER) (test idqt=559) 27 meq/L 22-29 BLOOD UREA NITROGEN (BEAKER) (test xnbm=721) 8 mg/dL 7-21 CREATININE (BEAKER) (test alhu=035) 0.67 mg/dL 0.57-1.25 GLUCOSE RANDOM (BEAKER) (test bhjp=909) 93 mg/dL 70-105 CALCIUM (BEAKER) (test fknh=861) 8.7 mg/dL 8.4-10.2 EGFR (BEAKER) (test nhmm=2053) 100 mL/min/1.73 sq m ESTIMATED GFR IS NOT ACCURATE CREATININE CLEARANCE IN PREDICTING GLOMERULAR FILTRATION RATE. ESTIMATED GFR IS NOT APPLICABLE FOR DIALYSIS PATIENTS. CBC W/PLT COUNT & AUTO [id number] 04:18:00* Test Item Value Reference Range Comments WHITE BLOOD CELL COUNT (BEAKER) (test xkbj=047) 18.4 K/ L 3.5-10.5 RED BLOOD CELL COUNT (BEAKER) (test uobq=622) 3.89 M/ L 3.93-5.22 HEMOGLOBIN (BEAKER) (test webl=005) 11.3 GM/DL 11.2-15.7 HEMATOCRIT (BEAKER) (test ushs=306) 34.8 % 34.1-44.9 MEAN CORPUSCULAR VOLUME (BEAKER) (test lgfy=699) 89.5 fL 79.4-94.8 MEAN CORPUSCULAR HEMOGLOBIN (BEAKER) (test jkwz=548) 29.0 pg 25.6-32.2 MEAN CORPUSCULAR HEMOGLOBIN CONC (BEAKER) (test vspe=439) 32.5 GM/DL 32.2-35.5 RED CELL DISTRIBUTION WIDTH (BEAKER) (test cckw=408) 15.9 % 11.7-14.4 PLATELET COUNT (BEAKER) (test mvhq=014) 401 K/CU MM 150-450 MEAN PLATELET VOLUME (BEAKER) (test yzoc=814) 9.8 fL 9.4-12.3 NUCLEATED RED BLOOD CELLS (BEAKER) (test najj=495) 0 /100 WBC 0-0 NEUTROPHILS RELATIVE PERCENT (BEAKER) (test tpwp=715) 69 % LYMPHOCYTES RELATIVE PERCENT (BEAKER) (test fgsp=136) 14 % MONOCYTES RELATIVE PERCENT (BEAKER) (test ghyt=330) 8 % EOSINOPHILS RELATIVE PERCENT (BEAKER) (test cfuq=664) 1 % BASOPHILS RELATIVE PERCENT (BEAKER) (test tnqn=148) 0 % NEUTROPHILS ABSOLUTE COUNT (BEAKER) (test fwrz=486) 12.72 K/ L 1.56-6.13 LYMPHOCYTES ABSOLUTE COUNT (BEAKER) (test fbgh=418) 2.59 K/ L 1.18-3.74 MONOCYTES ABSOLUTE COUNT (BEAKER) (test upqy=627) 1.55 K/ L 0.24-0.36 EOSINOPHILS ABSOLUTE COUNT (BEAKER) (test mphi=732) 0.14 K/ L 0.04-0.36 BASOPHILS ABSOLUTE COUNT (BEAKER) (test durp=815) 0.03 K/ L 0.01-0.08 IMMATURE GRANULOCYTES-RELATIVE PERCENT (BEAKER) (test vmrp=0390) 7 % 0-1 BLOOD [id number] 11:00:00* Test Item Value Reference Range Comments CULTURE (BEAKER) (test dqak=1591) No growth in 5 days BLOOD [id number] 11:00:00* Test Item Value Reference Range Comments CULTURE (BEAKER) (test ykkj=4639) No growth in 5 days CBC W/PLT COUNT & AUTO [id number] 07:16:00* Test Item Value Reference Range Comments WHITE BLOOD CELL COUNT (BEAKER) (test ktxf=842) 14.8 K/ L 3.5-10.5 RED BLOOD CELL COUNT (BEAKER) (test jfco=449) 3.63 M/ L 3.93-5.22 HEMOGLOBIN (BEAKER) (test ogtm=539) 10.4 GM/DL 11.2-15.7 HEMATOCRIT (BEAKER) (test zxot=706) 32.9 % 34.1-44.9 MEAN CORPUSCULAR VOLUME (BEAKER) (test aqzn=808) 90.6 fL 79.4-94.8 MEAN CORPUSCULAR HEMOGLOBIN (BEAKER) (test xxvl=489) 28.7 pg 25.6-32.2 MEAN CORPUSCULAR HEMOGLOBIN CONC (BEAKER) (test jiil=554) 31.6 GM/DL 32.2-35.5 RED CELL DISTRIBUTION WIDTH (BEAKER) (test fqta=947) 16.1 % 11.7-14.4 PLATELET COUNT (BEAKER) (test plhv=383) 446 K/CU MM 150-450 MEAN PLATELET VOLUME (BEAKER) (test dixt=153) 9.8 fL 9.4-12.3 NUCLEATED RED BLOOD CELLS (BEAKER) (test ytor=725) 0 /100 WBC 0-0 NEUTROPHILS RELATIVE PERCENT (BEAKER) (test tdtu=763) 75 % LYMPHOCYTES RELATIVE PERCENT (BEAKER) (test oiwr=716) 12 % MONOCYTES RELATIVE PERCENT (BEAKER) (test gpxf=660) 7 % EOSINOPHILS RELATIVE PERCENT (BEAKER) (test cfcg=913) 0 % BASOPHILS RELATIVE PERCENT (BEAKER) (test iqoy=504) 0 % NEUTROPHILS ABSOLUTE COUNT (BEAKER) (test yumn=415) 11.09 K/ L 1.56-6.13 LYMPHOCYTES ABSOLUTE COUNT (BEAKER) (test tvzy=733) 1.80 K/ L 1.18-3.74 MONOCYTES ABSOLUTE COUNT (BEAKER) (test rqyg=690) 1.02 K/ L 0.24-0.36 EOSINOPHILS ABSOLUTE COUNT (BEAKER) (test uoci=240) 0.02 K/ L 0.04-0.36 BASOPHILS ABSOLUTE COUNT (BEAKER) (test rqgm=316) 0.04 K/ L 0.01-0.08 IMMATURE GRANULOCYTES-RELATIVE PERCENT (BEAKER) (test onjt=5850) 5 % 0-1 [id number] 07:10:00* Test Item Value Reference Range Comments PHOSPHORUS (BEAKER) (test ncbp=354) 2.8 mg/dL 2.3-4.7 [id number] 07:10:00* Test Item Value Reference Range Comments MAGNESIUM (BEAKER) (test iiuo=786) 2.0 mg/dL 1.6-2.6 BASIC METABOLIC [id number] 07:10:00* Test Item Value Reference Range Comments SODIUM (BEAKER) (test nuhr=384) 138 meq/L 136-145 POTASSIUM (BEAKER) (test vepd=928) 3.7 meq/L 3.5-5.1 CHLORIDE (BEAKER) (test ojrt=686) 105 meq/L 98-107 CO2 (BEAKER) (test qjzt=500) 25 meq/L 22-29 BLOOD UREA NITROGEN (BEAKER) (test cnbk=001) 10 mg/dL 7-21 CREATININE (BEAKER) (test tmmr=979) 0.71 mg/dL 0.57-1.25 GLUCOSE RANDOM (BEAKER) (test pyez=212) 134 mg/dL 70-105 CALCIUM (BEAKER) (test rnnz=737) 8.3 mg/dL 8.4-10.2 EGFR (BEAKER) (test pbon=1000) 94 mL/min/1.73 sq m ESTIMATED GFR IS NOT ACCURATE CREATININE CLEARANCE IN PREDICTING GLOMERULAR FILTRATION RATE. ESTIMATED GFR IS NOT APPLICABLE FOR DIALYSIS PATIENTS. COMPREHENSIVE METABOLIC [id number] 09:03:00* Test Item Value Reference Range Comments TOTAL PROTEIN (BEAKER) (test bbwg=613) 6.0 gm/dL 6.0-8.3 ALBUMIN (BEAKER) (test eayf=4485) 3.2 g/dL 3.5-5.0 ALKALINE PHOSPHATASE (BEAKER) (test stkf=883) 65 U/L 40-150 BILIRUBIN TOTAL (BEAKER) (test fwrw=951) < mg/dL 0.2-1.2 SODIUM (BEAKER) (test rilf=090) 138 meq/L 136-145 POTASSIUM (BEAKER) (test wabc=962) 4.0 meq/L 3.5-5.1 CHLORIDE (BEAKER) (test opec=796) 104 meq/L 98-107 CO2 (BEAKER) (test qvup=845) 27 meq/L 22-29 BLOOD UREA NITROGEN (BEAKER) (test rhdy=090) 10 mg/dL 7-21 CREATININE (BEAKER) (test fhyn=250) 0.74 mg/dL 0.57-1.25 GLUCOSE RANDOM (BEAKER) (test cjqn=600) 113 mg/dL 70-105 CALCIUM (BEAKER) (test khgt=499) 8.6 mg/dL 8.4-10.2 AST (SGOT) (BEAKER) (test xsau=146) 7 U/L 5-34 ALT (SGPT) (BEAKER) (test uyuh=332) 8 U/L 6-55 EGFR (BEAKER) (test jepa=4329) 89 mL/min/1.73 sq m ESTIMATED GFR IS NOT ACCURATE CREATININE CLEARANCE IN PREDICTING GLOMERULAR FILTRATION RATE. ESTIMATED GFR IS NOT APPLICABLE FOR DIALYSIS PATIENTS. CBC W/PLT COUNT & AUTO [id number] 08:59:00* Test Item Value Reference Range Comments WHITE BLOOD CELL COUNT (BEAKER) (test nniv=951) 20.2 K/ L 3.5-10.5 RED BLOOD CELL COUNT (BEAKER) (test rlza=040) 3.84 M/ L 3.93-5.22 HEMOGLOBIN (BEAKER) (test ysqp=628) 11.1 GM/DL 11.2-15.7 HEMATOCRIT (BEAKER) (test cgqb=072) 35.2 % 34.1-44.9 MEAN CORPUSCULAR VOLUME (BEAKER) (test ajug=190) 91.7 fL 79.4-94.8 MEAN CORPUSCULAR HEMOGLOBIN (BEAKER) (test krss=407) 28.9 pg 25.6-32.2 MEAN CORPUSCULAR HEMOGLOBIN CONC (BEAKER) (test bfhi=091) 31.5 GM/DL 32.2-35.5 RED CELL DISTRIBUTION WIDTH (BEAKER) (test mkxu=057) 16.3 % 11.7-14.4 PLATELET COUNT (BEAKER) (test wbkb=324) 476 K/CU MM 150-450 MEAN PLATELET VOLUME (BEAKER) (test edbk=969) 9.6 fL 9.4-12.3 NUCLEATED RED BLOOD CELLS (BEAKER) (test hffx=304) 0 /100 WBC 0-0 NEUTROPHILS RELATIVE PERCENT (BEAKER) (test egfw=089) 85 % LYMPHOCYTES RELATIVE PERCENT (BEAKER) (test gxkb=563) 6 % MONOCYTES RELATIVE PERCENT (BEAKER) (test wigs=042) 6 % EOSINOPHILS RELATIVE PERCENT (BEAKER) (test epjw=329) 0 % BASOPHILS RELATIVE PERCENT (BEAKER) (test mcqv=478) 0 % NEUTROPHILS ABSOLUTE COUNT (BEAKER) (test jvow=233) 17.11 K/ L 1.56-6.13 LYMPHOCYTES ABSOLUTE COUNT (BEAKER) (test yycx=776) 1.14 K/ L 1.18-3.74 MONOCYTES ABSOLUTE COUNT (BEAKER) (test glpi=518) 1.13 K/ L 0.24-0.36 EOSINOPHILS ABSOLUTE COUNT (BEAKER) (test iwne=783) 0.06 K/ L 0.04-0.36 BASOPHILS ABSOLUTE COUNT (BEAKER) (test iygl=352) 0.03 K/ L 0.01-0.08 IMMATURE GRANULOCYTES-RELATIVE PERCENT (BEAKER) (test puoo=0486) 4 % 0-1 URINE [id number] 11:58:00* Test Item Value Reference Range Comments CULTURE (BEAKER) (test mlqq=7740) Clindamycin (test code=10) Erythromycin (test code=4) Linezolid (test code=40) Nitrofurantoin (test code=23) Oxacillin (test code=14) Rifampin (test code=43) Tetracycline (test code=2) Trimethoprim + Sulfamethoxazole (test code=47) Vancomycin (test code=13) CULTURE (BEAKER) (test ralu=3488) <10,000 col/mL Methicillin resistant Staphylococcus aureus CULTURE (BEAKER) (test htcs=1812) 10-19,000 col/mL Tiesha glabrata SEDIMENTATION [id number] 09:21:00* Test Item Value Reference Range Comments SEDIMENTATION RATE, ERYTHROCYTE (BEAKER) (test gyfv=809) 12 mm/HR 0-20 CBC W/PLT COUNT & AUTO [id number] 05:40:00* Test Item Value Reference Range Comments WHITE BLOOD CELL COUNT (BEAKER) (test cfeb=573) 10.4 K/ L 3.5-10.5 RED BLOOD CELL COUNT (BEAKER) (test dicc=824) 3.59 M/ L 3.93-5.22 HEMOGLOBIN (BEAKER) (test tovu=343) 10.1 GM/DL 11.2-15.7 HEMATOCRIT (BEAKER) (test nlhj=641) 33.2 % 34.1-44.9 MEAN CORPUSCULAR VOLUME (BEAKER) (test axpc=408) 92.5 fL 79.4-94.8 MEAN CORPUSCULAR HEMOGLOBIN (BEAKER) (test dcgv=388) 28.1 pg 25.6-32.2 MEAN CORPUSCULAR HEMOGLOBIN CONC (BEAKER) (test oues=582) 30.4 GM/DL 32.2-35.5 RED CELL DISTRIBUTION WIDTH (BEAKER) (test nwiu=589) 16.2 % 11.7-14.4 PLATELET COUNT (BEAKER) (test hvxf=769) 546 K/CU MM 150-450 MEAN PLATELET VOLUME (BEAKER) (test udvw=287) 10.0 fL 9.4-12.3 NUCLEATED RED BLOOD CELLS (BEAKER) (test udrd=828) 0 /100 WBC 0-0 NEUTROPHILS RELATIVE PERCENT (BEAKER) (test datf=984) 74 % LYMPHOCYTES RELATIVE PERCENT (BEAKER) (test lyyp=698) 15 % MONOCYTES RELATIVE PERCENT (BEAKER) (test muvc=066) 6 % EOSINOPHILS RELATIVE PERCENT (BEAKER) (test ojjo=944) 0 % BASOPHILS RELATIVE PERCENT (BEAKER) (test aipi=549) 0 % NEUTROPHILS ABSOLUTE COUNT (BEAKER) (test vebk=147) 7.68 K/ L 1.56-6.13 LYMPHOCYTES ABSOLUTE COUNT (BEAKER) (test vqoo=060) 1.58 K/ L 1.18-3.74 MONOCYTES ABSOLUTE COUNT (BEAKER) (test beub=529) 0.59 K/ L 0.24-0.36 EOSINOPHILS ABSOLUTE COUNT (BEAKER) (test lsif=478) 0.01 K/ L 0.04-0.36 BASOPHILS ABSOLUTE COUNT (BEAKER) (test hfmy=187) 0.03 K/ L 0.01-0.08 IMMATURE GRANULOCYTES-RELATIVE PERCENT (BEAKER) (test paxg=3424) 5 % 0-1 [id number] 05:16:00* Test Item Value Reference Range Comments PHOSPHORUS (BEAKER) (test rfum=066) 3.5 mg/dL 2.3-4.7 [id number] 05:16:00* Test Item Value Reference Range Comments MAGNESIUM (BEAKER) (test wmkx=067) 1.9 mg/dL 1.6-2.6 BASIC METABOLIC [id number] 05:16:00* Test Item Value Reference Range Comments SODIUM (BEAKER) (test oyxq=479) 138 meq/L 136-145 POTASSIUM (BEAKER) (test yixk=843) 3.9 meq/L 3.5-5.1 CHLORIDE (BEAKER) (test icys=133) 107 meq/L 98-107 CO2 (BEAKER) (test dhis=354) 24 meq/L 22-29 BLOOD UREA NITROGEN (BEAKER) (test nzgn=277) 9 mg/dL 7-21 CREATININE (BEAKER) (test wwkj=963) 0.79 mg/dL 0.57-1.25 GLUCOSE RANDOM (BEAKER) (test gjrc=320) 128 mg/dL 70-105 CALCIUM (BEAKER) (test etjt=498) 8.6 mg/dL 8.4-10.2 EGFR (BEAKER) (test bpnx=3682) 83 mL/min/1.73 sq m ESTIMATED GFR IS NOT ACCURATE CREATININE CLEARANCE IN PREDICTING GLOMERULAR FILTRATION RATE. ESTIMATED GFR IS NOT APPLICABLE FOR DIALYSIS PATIENTS. C-REACTIVE [id number] 05:16:00* Test Item Value Reference Range Comments C-REACTIVE PROTEIN (BEAKER) (test higz=490) 0.45 mg/dL 0.00-0.50 CBC W/PLT COUNT & AUTO [id number] 03:44:00* Test Item Value Reference Range Comments WHITE BLOOD CELL COUNT (BEAKER) (test vvqb=843) 10.0 K/ L 3.5-10.5 RED BLOOD CELL COUNT (BEAKER) (test cuek=888) 3.80 M/ L 3.93-5.22 HEMOGLOBIN (BEAKER) (test zpca=174) 10.7 GM/DL 11.2-15.7 HEMATOCRIT (BEAKER) (test zltg=930) 35.0 % 34.1-44.9 MEAN CORPUSCULAR VOLUME (BEAKER) (test prkv=027) 92.1 fL 79.4-94.8 MEAN CORPUSCULAR HEMOGLOBIN (BEAKER) (test uwat=487) 28.2 pg 25.6-32.2 MEAN CORPUSCULAR HEMOGLOBIN CONC (BEAKER) (test adhq=672) 30.6 GM/DL 32.2-35.5 RED CELL DISTRIBUTION WIDTH (BEAKER) (test ihgi=747) 16.1 % 11.7-14.4 PLATELET COUNT (BEAKER) (test aeos=919) 581 K/CU MM 150-450 MEAN PLATELET VOLUME (BEAKER) (test njtg=133) 9.6 fL 9.4-12.3 NUCLEATED RED BLOOD CELLS (BEAKER) (test vmlz=328) 0 /100 WBC 0-0 NEUTROPHILS RELATIVE PERCENT (BEAKER) (test dtzb=136) 76 % LYMPHOCYTES RELATIVE PERCENT (BEAKER) (test tbmt=597) 15 % MONOCYTES RELATIVE PERCENT (BEAKER) (test feip=457) 7 % EOSINOPHILS RELATIVE PERCENT (BEAKER) (test uprk=128) 0 % BASOPHILS RELATIVE PERCENT (BEAKER) (test wixe=934) 0 % NEUTROPHILS ABSOLUTE COUNT (BEAKER) (test ampy=466) 7.59 K/ L 1.56-6.13 LYMPHOCYTES ABSOLUTE COUNT (BEAKER) (test bedf=965) 1.48 K/ L 1.18-3.74 MONOCYTES ABSOLUTE COUNT (BEAKER) (test luqg=899) 0.65 K/ L 0.24-0.36 EOSINOPHILS ABSOLUTE COUNT (BEAKER) (test peyq=929) 0.00 K/ L 0.04-0.36 BASOPHILS ABSOLUTE COUNT (BEAKER) (test vvoz=096) 0.03 K/ L 0.01-0.08 IMMATURE GRANULOCYTES-RELATIVE PERCENT (BEAKER) (test tscv=6460) 2 % 0-1 [id number] 03:40:00* Test Item Value Reference Range Comments PHOSPHORUS (BEAKER) (test tphz=440) 3.5 mg/dL 2.3-4.7 [id number] 03:40:00* Test Item Value Reference Range Comments MAGNESIUM (BEAKER) (test orlp=776) 1.9 mg/dL 1.6-2.6 BASIC METABOLIC [id number] 03:40:00* Test Item Value Reference Range Comments SODIUM (BEAKER) (test ylgo=310) 140 meq/L 136-145 POTASSIUM (BEAKER) (test loms=889) 4.3 meq/L 3.5-5.1 CHLORIDE (BEAKER) (test gkwr=072) 108 meq/L 98-107 CO2 (BEAKER) (test yuqi=942) 23 meq/L 22-29 BLOOD UREA NITROGEN (BEAKER) (test wxlz=315) 10 mg/dL 7-21 CREATININE (BEAKER) (test kzng=661) 0.81 mg/dL 0.57-1.25 GLUCOSE RANDOM (BEAKER) (test ivib=254) 127 mg/dL 70-105 CALCIUM (BEAKER) (test qvnb=984) 9.1 mg/dL 8.4-10.2 EGFR (BEAKER) (test uzsa=8258) 80 mL/min/1.73 sq m ESTIMATED GFR IS NOT ACCURATE CREATININE CLEARANCE IN PREDICTING GLOMERULAR FILTRATION RATE. ESTIMATED GFR IS NOT APPLICABLE FOR DIALYSIS PATIENTS. SEDIMENTATION [id number] 10:20:00* Test Item Value Reference Range Comments SEDIMENTATION RATE, ERYTHROCYTE (BEAKER) (test yuvf=203) 20 mm/HR 0-20 CBC W/PLT COUNT & AUTO [id number] 05:30:00* Test Item Value Reference Range Comments WHITE BLOOD CELL COUNT (BEAKER) (test jrhu=823) 11.3 K/ L 3.5-10.5 RED BLOOD CELL COUNT (BEAKER) (test ygzy=197) 3.73 M/ L 3.93-5.22 HEMOGLOBIN (BEAKER) (test kadp=138) 10.7 GM/DL 11.2-15.7 HEMATOCRIT (BEAKER) (test fbfu=323) 34.6 % 34.1-44.9 MEAN CORPUSCULAR VOLUME (BEAKER) (test xvos=309) 92.8 fL 79.4-94.8 MEAN CORPUSCULAR HEMOGLOBIN (BEAKER) (test cyic=144) 28.7 pg 25.6-32.2 MEAN CORPUSCULAR HEMOGLOBIN CONC (BEAKER) (test zysx=804) 30.9 GM/DL 32.2-35.5 RED CELL DISTRIBUTION WIDTH (BEAKER) (test tkzr=763) 15.9 % 11.7-14.4 PLATELET COUNT (BEAKER) (test fbua=088) 560 K/CU MM 150-450 MEAN PLATELET VOLUME (BEAKER) (test ltln=868) 9.9 fL 9.4-12.3 NUCLEATED RED BLOOD CELLS (BEAKER) (test wbly=639) 0 /100 WBC 0-0 NEUTROPHILS RELATIVE PERCENT (BEAKER) (test sxeg=625) 77 % LYMPHOCYTES RELATIVE PERCENT (BEAKER) (test xeky=988) 14 % MONOCYTES RELATIVE PERCENT (BEAKER) (test vvfg=417) 8 % EOSINOPHILS RELATIVE PERCENT (BEAKER) (test hdad=255) 0 % BASOPHILS RELATIVE PERCENT (BEAKER) (test vumh=405) 0 % NEUTROPHILS ABSOLUTE COUNT (BEAKER) (test vwvj=595) 8.70 K/ L 1.56-6.13 LYMPHOCYTES ABSOLUTE COUNT (BEAKER) (test cvoc=926) 1.58 K/ L 1.18-3.74 MONOCYTES ABSOLUTE COUNT (BEAKER) (test wfgo=192) 0.93 K/ L 0.24-0.36 EOSINOPHILS ABSOLUTE COUNT (BEAKER) (test ycvx=647) 0.00 K/ L 0.04-0.36 BASOPHILS ABSOLUTE COUNT (BEAKER) (test jabn=459) 0.02 K/ L 0.01-0.08 IMMATURE GRANULOCYTES-RELATIVE PERCENT (BEAKER) (test ubkj=8881) 1 % 0-1 [id number] 05:21:00* Test Item Value Reference Range Comments PHOSPHORUS (BEAKER) (test khcj=504) 3.3 mg/dL 2.3-4.7 [id number] 05:21:00* Test Item Value Reference Range Comments MAGNESIUM (BEAKER) (test ynha=809) 1.8 mg/dL 1.6-2.6 BASIC METABOLIC [id number] 05:21:00* Test Item Value Reference Range Comments SODIUM (BEAKER) (test hqrr=876) 140 meq/L 136-145 POTASSIUM (BEAKER) (test zhqy=430) 4.1 meq/L 3.5-5.1 CHLORIDE (BEAKER) (test tnxl=788) 107 meq/L 98-107 CO2 (BEAKER) (test mxxw=183) 26 meq/L 22-29 BLOOD UREA NITROGEN (BEAKER) (test yaof=378) 7 mg/dL 7-21 CREATININE (BEAKER) (test pbvm=545) 0.71 mg/dL 0.57-1.25 GLUCOSE RANDOM (BEAKER) (test ebbh=314) 141 mg/dL 70-105 CALCIUM (BEAKER) (test rgmb=887) 9.1 mg/dL 8.4-10.2 EGFR (BEAKER) (test vkpw=2721) 94 mL/min/1.73 sq m ESTIMATED GFR IS NOT ACCURATE CREATININE CLEARANCE IN PREDICTING GLOMERULAR FILTRATION RATE. ESTIMATED GFR IS NOT APPLICABLE FOR DIALYSIS PATIENTS. C-REACTIVE [id number] 05:21:00* Test Item Value Reference Range Comments C-REACTIVE PROTEIN (BEAKER) (test bmns=777) 4.19 mg/dL 0.00-0.50 URINALYSIS W/ [id number] 12:34:00* Test Item Value Reference Range Comments COLOR (BEAKER) (test jyoy=587) Colorless CLARITY (BEAKER) (test ljey=499) Clear SPECIFIC GRAVITY UA (BEAKER) (test annw=279) 1.005 1.001-1.035 PH UA (BEAKER) (test rmff=653) 7.0 5.0-8.0 PROTEIN UA (BEAKER) (test dhpw=207) Negative Negative GLUCOSE UA (BEAKER) (test fbhy=226) 70 mg/dL Negative KETONES UA (BEAKER) (test vghu=558) Negative Negative BILIRUBIN UA (BEAKER) (test gjoo=098) Negative Negative BLOOD UA (BEAKER) (test qsxu=833) Negative Negative NITRITE UA (BEAKER) (test hman=125) Negative Negative LEUKOCYTE ESTERASE UA (BEAKER) (test qaau=578) Negative Negative UROBILINOGEN UA (BEAKER) (test koli=199) 0.2 mg/dL 0.2-1.0 RBC UA (BEAKER) (test taxi=315) < /HPF WBC UA (BEAKER) (test rqxs=997) 1 /HPF BACTERIA (BEAKER) (test unxy=021) Rare SQUAMOUS EPITHELIAL (BEAKER) (test veal=880) 1 /HPF SOURCE(BEAKER) (test pgjz=3103) Urine, Clean Catch CBC W/PLT COUNT & AUTO [id number] 06:26:00* Test Item Value Reference Range Comments WHITE BLOOD CELL COUNT (BEAKER) (test ssdx=731) 15.9 K/ L 3.5-10.5 RED BLOOD CELL COUNT (BEAKER) (test nmoe=578) 3.76 M/ L 3.93-5.22 HEMOGLOBIN (BEAKER) (test sczx=385) 10.8 GM/DL 11.2-15.7 HEMATOCRIT (BEAKER) (test bima=625) 35.1 % 34.1-44.9 MEAN CORPUSCULAR VOLUME (BEAKER) (test jgxd=830) 93.4 fL 79.4-94.8 MEAN CORPUSCULAR HEMOGLOBIN (BEAKER) (test yyyz=847) 28.7 pg 25.6-32.2 MEAN CORPUSCULAR HEMOGLOBIN CONC (BEAKER) (test mcdv=048) 30.8 GM/DL 32.2-35.5 RED CELL DISTRIBUTION WIDTH (BEAKER) (test xvev=079) 16.7 % 11.7-14.4 PLATELET COUNT (BEAKER) (test ylxh=000) 461 K/CU MM 150-450 MEAN PLATELET VOLUME (BEAKER) (test rqpf=155) 10.8 fL 9.4-12.3 NUCLEATED RED BLOOD CELLS (BEAKER) (test bqre=660) 0 /100 WBC 0-0 NEUTROPHILS RELATIVE PERCENT (BEAKER) (test catd=553) 90 % LYMPHOCYTES RELATIVE PERCENT (BEAKER) (test rpfy=475) 5 % MONOCYTES RELATIVE PERCENT (BEAKER) (test vmjt=340) 3 % EOSINOPHILS RELATIVE PERCENT (BEAKER) (test jchh=600) 1 % BASOPHILS RELATIVE PERCENT (BEAKER) (test xizx=693) 1 % NEUTROPHILS ABSOLUTE COUNT (BEAKER) (test sixt=854) 14.36 K/ L 1.56-6.13 LYMPHOCYTES ABSOLUTE COUNT (BEAKER) (test fiwe=076) 0.78 K/ L 1.18-3.74 MONOCYTES ABSOLUTE COUNT (BEAKER) (test kncz=373) 0.49 K/ L 0.24-0.36 EOSINOPHILS ABSOLUTE COUNT (BEAKER) (test bofd=877) 0.12 K/ L 0.04-0.36 BASOPHILS ABSOLUTE COUNT (BEAKER) (test gysy=315) 0.08 K/ L 0.01-0.08 IMMATURE GRANULOCYTES-RELATIVE PERCENT (BEAKER) (test twgi=9276) 1 % 0-1 POCT-LACTIC ACID, [id number] 01:48:00* Test Item Value Reference Range Comments POC-LACTIC ACID, VENOUS (BEAKER) (test iqns=4255) 1.1 mmol/L 0.9-1.7 TESTED AT [facility] [address] [facility] [address] COMPREHENSIVE METABOLIC [id number] 01:04:00* Test Item Value Reference Range Comments TOTAL PROTEIN (BEAKER) (test exgm=060) 6.2 gm/dL 6.0-8.3 ALBUMIN (BEAKER) (test rmml=1388) 3.2 g/dL 3.5-5.0 ALKALINE PHOSPHATASE (BEAKER) (test cdcq=787) 83 U/L 40-150 BILIRUBIN TOTAL (BEAKER) (test rfhz=366) < mg/dL 0.2-1.2 SODIUM (BEAKER) (test llre=851) 140 meq/L 136-145 POTASSIUM (BEAKER) (test vvct=496) 4.3 meq/L 3.5-5.1 CHLORIDE (BEAKER) (test cfkr=248) 109 meq/L 98-107 CO2 (BEAKER) (test weim=482) 23 meq/L 22-29 BLOOD UREA NITROGEN (BEAKER) (test ckbx=585) 9 mg/dL 7-21 CREATININE (BEAKER) (test ospb=526) 0.77 mg/dL 0.57-1.25 GLUCOSE RANDOM (BEAKER) (test uvck=775) 86 mg/dL 70-105 CALCIUM (BEAKER) (test ycrg=783) 8.5 mg/dL 8.4-10.2 AST (SGOT) (BEAKER) (test rtkq=654) 11 U/L 5-34 ALT (SGPT) (BEAKER) (test fbfz=942) 13 U/L 6-55 EGFR (BEAKER) (test atrw=0615) 85 mL/min/1.73 sq m ESTIMATED GFR IS NOT ACCURATE CREATININE CLEARANCE IN PREDICTING GLOMERULAR FILTRATION RATE. ESTIMATED GFR IS NOT APPLICABLE FOR DIALYSIS PATIENTS. CBC W/PLT COUNT & AUTO [id number] 00:42:00* Test Item Value Reference Range Comments WHITE BLOOD CELL COUNT (BEAKER) (test sher=806) 15.9 K/ L 3.5-10.5 RED BLOOD CELL COUNT (BEAKER) (test ciub=989) 4.02 M/ L 3.93-5.22 HEMOGLOBIN (BEAKER) (test mxau=436) 11.5 GM/DL 11.2-15.7 HEMATOCRIT (BEAKER) (test ugwo=796) 37.3 % 34.1-44.9 MEAN CORPUSCULAR VOLUME (BEAKER) (test wkfb=018) 92.8 fL 79.4-94.8 MEAN CORPUSCULAR HEMOGLOBIN (BEAKER) (test okdl=092) 28.6 pg 25.6-32.2 MEAN CORPUSCULAR HEMOGLOBIN CONC (BEAKER) (test xhqh=342) 30.8 GM/DL 32.2-35.5 RED CELL DISTRIBUTION WIDTH (BEAKER) (test ivgq=107) 16.5 % 11.7-14.4 PLATELET COUNT (BEAKER) (test tpmn=689) 599 K/CU MM 150-450 MEAN PLATELET VOLUME (BEAKER) (test fqrz=616) 9.4 fL 9.4-12.3 NUCLEATED RED BLOOD CELLS (BEAKER) (test tkpv=193) 0 /100 WBC 0-0 NEUTROPHILS RELATIVE PERCENT (BEAKER) (test zelk=008) 64 % LYMPHOCYTES RELATIVE PERCENT (BEAKER) (test xeym=802) 16 % MONOCYTES RELATIVE PERCENT (BEAKER) (test hwfs=016) 15 % EOSINOPHILS RELATIVE PERCENT (BEAKER) (test tgcq=589) 3 % BASOPHILS RELATIVE PERCENT (BEAKER) (test bmvd=802) 1 % NEUTROPHILS ABSOLUTE COUNT (BEAKER) (test amlv=296) 10.21 K/ L 1.56-6.13 LYMPHOCYTES ABSOLUTE COUNT (BEAKER) (test hytt=535) 2.53 K/ L 1.18-3.74 MONOCYTES ABSOLUTE COUNT (BEAKER) (test jawx=637) 2.38 K/ L 0.24-0.36 EOSINOPHILS ABSOLUTE COUNT (BEAKER) (test wwsn=491) 0.54 K/ L 0.04-0.36 BASOPHILS ABSOLUTE COUNT (BEAKER) (test iime=608) 0.12 K/ L 0.01-0.08 IMMATURE GRANULOCYTES-RELATIVE PERCENT (BEAKER) (test geqp=2920) 1 % 0-1 AFB CULTURE + [id number] 19:07:00* Test Item Value Reference Range Comments CULTURE (BEAKER) (test xmbk=3513) No acid-fast bacilli isolated in 42 days AFB SMEAR (BEAKER) (test fzeq=880) No acid fast bacilli seen C-REACTIVE [id number] 13:22:00* Test Item Value Reference Range Comments C-REACTIVE PROTEIN (BEAKER) (test cfga=961) 1.84 mg/dL 0.00-0.50 CBC W/PLT COUNT & AUTO [id number] 08:25:00* Test Item Value Reference Range Comments WHITE BLOOD CELL COUNT (BEAKER) (test kcvt=787) 4.7 K/ L 3.5-10.5 RED BLOOD CELL COUNT (BEAKER) (test qiks=820) 3.57 M/ L 3.93-5.22 HEMOGLOBIN (BEAKER) (test vofd=454) 10.3 GM/DL 11.2-15.7 HEMATOCRIT (BEAKER) (test pfqn=496) 34.2 % 34.1-44.9 MEAN CORPUSCULAR VOLUME (BEAKER) (test vwbw=358) 95.8 fL 79.4-94.8 MEAN CORPUSCULAR HEMOGLOBIN (BEAKER) (test xffk=854) 28.9 pg 25.6-32.2 MEAN CORPUSCULAR HEMOGLOBIN CONC (BEAKER) (test efqy=210) 30.1 GM/DL 32.2-35.5 RED CELL DISTRIBUTION WIDTH (BEAKER) (test hcsd=583) 15.9 % 11.7-14.4 PLATELET COUNT (BEAKER) (test ekiq=319) 638 K/CU MM 150-450 MEAN PLATELET VOLUME (BEAKER) (test memz=439) 9.2 fL 9.4-12.3 NUCLEATED RED BLOOD CELLS (BEAKER) (test ysmh=184) 0 /100 WBC 0-0 NEUTROPHILS RELATIVE PERCENT (BEAKER) (test rqcx=482) 73 % LYMPHOCYTES RELATIVE PERCENT (BEAKER) (test mrlf=205) 23 % MONOCYTES RELATIVE PERCENT (BEAKER) (test vbrb=485) 3 % EOSINOPHILS RELATIVE PERCENT (BEAKER) (test sjdb=508) 0 % BASOPHILS RELATIVE PERCENT (BEAKER) (test ehje=086) 0 % NEUTROPHILS ABSOLUTE COUNT (BEAKER) (test uonz=137) 3.43 K/ L 1.56-6.13 LYMPHOCYTES ABSOLUTE COUNT (BEAKER) (test oknm=949) 1.08 K/ L 1.18-3.74 MONOCYTES ABSOLUTE COUNT (BEAKER) (test mttx=685) 0.14 K/ L 0.24-0.36 EOSINOPHILS ABSOLUTE COUNT (BEAKER) (test phbb=662) 0.01 K/ L 0.04-0.36 BASOPHILS ABSOLUTE COUNT (BEAKER) (test pgep=880) 0.01 K/ L 0.01-0.08 IMMATURE GRANULOCYTES-RELATIVE PERCENT (BEAKER) (test lvpk=8042) 0 % 0-1 [id number] 07:10:00* Test Item Value Reference Range Comments MAGNESIUM (BEAKER) (test etaw=248) 2.0 mg/dL 1.6-2.6 BASIC METABOLIC [id number] 07:10:00* Test Item Value Reference Range Comments SODIUM (BEAKER) (test erse=635) 139 meq/L 136-145 POTASSIUM (BEAKER) (test ealv=439) 3.6 meq/L 3.5-5.1 CHLORIDE (BEAKER) (test socj=450) 102 meq/L 98-107 CO2 (BEAKER) (test mlbu=788) 32 meq/L 22-29 BLOOD UREA NITROGEN (BEAKER) (test ancg=017) 5 mg/dL 7-21 CREATININE (BEAKER) (test kxks=239) 0.56 mg/dL 0.57-1.25 GLUCOSE RANDOM (BEAKER) (test qnxl=545) 122 mg/dL 70-105 CALCIUM (BEAKER) (test bkyv=978) 9.0 mg/dL 8.4-10.2 EGFR (BEAKER) (test jpeh=5742) 123 mL/min/1.73 sq m ESTIMATED GFR IS NOT ACCURATE CREATININE CLEARANCE IN PREDICTING GLOMERULAR FILTRATION RATE. ESTIMATED GFR IS NOT APPLICABLE FOR DIALYSIS PATIENTS. BASIC METABOLIC [id number] 10:39:00* Test Item Value Reference Range Comments SODIUM (BEAKER) (test umxt=871) 140 meq/L 136-145 POTASSIUM (BEAKER) (test hyup=571) 2.7 meq/L 3.5-5.1 CHLORIDE (BEAKER) (test jyiz=504) 102 meq/L 98-107 CO2 (BEAKER) (test axls=400) 30 meq/L 22-29 BLOOD UREA NITROGEN (BEAKER) (test vtfv=716) 4 mg/dL 7-21 CREATININE (BEAKER) (test xmkx=541) 0.56 mg/dL 0.57-1.25 GLUCOSE RANDOM (BEAKER) (test fphq=997) 85 mg/dL 70-105 CALCIUM (BEAKER) (test qsri=389) 8.2 mg/dL 8.4-10.2 EGFR (BEAKER) (test uqom=0359) 123 mL/min/1.73 sq m ESTIMATED GFR IS NOT ACCURATE CREATININE CLEARANCE IN PREDICTING GLOMERULAR FILTRATION RATE. ESTIMATED GFR IS NOT APPLICABLE FOR DIALYSIS PATIENTS. PROTHROMBIN [id number] 10:24:00* Test Item Value Reference Range Comments PROTIME (BEAKER) (test fgey=935) 14.4 seconds 11.7-14.7 INR (BEAKER) (test zunw=545) 1.1 <=5.9 RECOMMENDED COUMADIN/WARFARIN INR THERAPY RANGESSTANDARD DOSE: 2.0 - 3.0 Inclu mignon: PROPHYLAXIS for venous thrombosis, systemic embolization; TREATMENT for ham ous thrombosis and/or pulmonary embolus.HIGH RISK: Target INR is 2.5-3.5 for pat ients with mechanical heart valves.CBC W/PLT COUNT & AUTO [id number] 10:17:00* Test Item Value Reference Range Comments WHITE BLOOD CELL COUNT (BEAKER) (test oxzh=506) 7.9 K/ L 3.5-10.5 RED BLOOD CELL COUNT (BEAKER) (test mjfh=620) 3.13 M/ L 3.93-5.22 HEMOGLOBIN (BEAKER) (test nbcg=851) 9.2 GM/DL 11.2-15.7 HEMATOCRIT (BEAKER) (test wpiu=588) 28.7 % 34.1-44.9 MEAN CORPUSCULAR VOLUME (BEAKER) (test iyvr=586) 91.7 fL 79.4-94.8 MEAN CORPUSCULAR HEMOGLOBIN (BEAKER) (test zicd=240) 29.4 pg 25.6-32.2 MEAN CORPUSCULAR HEMOGLOBIN CONC (BEAKER) (test wvcf=416) 32.1 GM/DL 32.2-35.5 RED CELL DISTRIBUTION WIDTH (BEAKER) (test moqq=593) 15.8 % 11.7-14.4 PLATELET COUNT (BEAKER) (test njrq=422) 613 K/CU MM 150-450 MEAN PLATELET VOLUME (BEAKER) (test gsax=232) 8.9 fL 9.4-12.3 NUCLEATED RED BLOOD CELLS (BEAKER) (test qwpu=330) 0 /100 WBC 0-0 NEUTROPHILS RELATIVE PERCENT (BEAKER) (test grrh=885) 69 % LYMPHOCYTES RELATIVE PERCENT (BEAKER) (test icjm=023) 26 % MONOCYTES RELATIVE PERCENT (BEAKER) (test undj=694) 3 % EOSINOPHILS RELATIVE PERCENT (BEAKER) (test gzic=155) 1 % BASOPHILS RELATIVE PERCENT (BEAKER) (test cvpo=430) 0 % NEUTROPHILS ABSOLUTE COUNT (BEAKER) (test gopd=794) 5.48 K/ L 1.56-6.13 LYMPHOCYTES ABSOLUTE COUNT (BEAKER) (test lijk=848) 2.01 K/ L 1.18-3.74 MONOCYTES ABSOLUTE COUNT (BEAKER) (test urbq=738) 0.22 K/ L 0.24-0.36 EOSINOPHILS ABSOLUTE COUNT (BEAKER) (test ffkm=938) 0.11 K/ L 0.04-0.36 BASOPHILS ABSOLUTE COUNT (BEAKER) (test ufhf=837) 0.03 K/ L 0.01-0.08 IMMATURE GRANULOCYTES-RELATIVE PERCENT (BEAKER) (test dylf=8666) 1 % 0-1 BLOOD [id number] 00:00:00* Test Item Value Reference Range Comments CULTURE (BEAKER) (test vbrg=3221) No growth in 5 days BLOOD [id number] 00:00:00* Test Item Value Reference Range Comments CULTURE (BEAKER) (test xlgx=0295) No growth in 5 days URINE [id number] 08:41:00* Test Item Value Reference Range Comments CULTURE (BEAKER) (test cdlw=1033) ENTEROCOCCUS SPECIES 10-19,000 col/mL Enterococcus species Ampicillin (test code=26) Linezolid (test code=40) Nitrofurantoin (test code=23) Tetracycline (test code=2) Vancomycin (test code=13) CULTURE (BEAKER) (test ouxf=6809) 20-29,000 col/mL Tiesha glabrata <10,000 col/mL skin floraCBC W/PLT COUNT & AUTO [id number] 06:08:00 * Test Item Value Reference Range Comments WHITE BLOOD CELL COUNT (BEAKER) (test lxww=146) 10.2 K/ L 3.5-10.5 RED BLOOD CELL COUNT (BEAKER) (test awlv=974) 2.98 M/ L 3.93-5.22 HEMOGLOBIN (BEAKER) (test aqch=736) 8.7 GM/DL 11.2-15.7 HEMATOCRIT (BEAKER) (test ebrx=452) 27.4 % 34.1-44.9 MEAN CORPUSCULAR VOLUME (BEAKER) (test pcsv=221) 91.9 fL 79.4-94.8 MEAN CORPUSCULAR HEMOGLOBIN (BEAKER) (test cjxd=048) 29.2 pg 25.6-32.2 MEAN CORPUSCULAR HEMOGLOBIN CONC (BEAKER) (test pgha=506) 31.8 GM/DL 32.2-35.5 RED CELL DISTRIBUTION WIDTH (BEAKER) (test fute=708) 15.7 % 11.7-14.4 PLATELET COUNT (BEAKER) (test hwtg=874) 590 K/CU MM 150-450 MEAN PLATELET VOLUME (BEAKER) (test xfca=113) 9.4 fL 9.4-12.3 NUCLEATED RED BLOOD CELLS (BEAKER) (test vspz=922) 0 /100 WBC 0-0 NEUTROPHILS RELATIVE PERCENT (BEAKER) (test dkrp=576) 78 % LYMPHOCYTES RELATIVE PERCENT (BEAKER) (test qvll=893) 16 % MONOCYTES RELATIVE PERCENT (BEAKER) (test zmwu=937) 6 % EOSINOPHILS RELATIVE PERCENT (BEAKER) (test waqe=099) 0 % BASOPHILS RELATIVE PERCENT (BEAKER) (test vylr=486) 0 % NEUTROPHILS ABSOLUTE COUNT (BEAKER) (test jfkl=665) 7.90 K/ L 1.56-6.13 LYMPHOCYTES ABSOLUTE COUNT (BEAKER) (test bjzd=137) 1.63 K/ L 1.18-3.74 MONOCYTES ABSOLUTE COUNT (BEAKER) (test bshj=998) 0.56 K/ L 0.24-0.36 EOSINOPHILS ABSOLUTE COUNT (BEAKER) (test hhji=999) 0.00 K/ L 0.04-0.36 BASOPHILS ABSOLUTE COUNT (BEAKER) (test hgay=682) 0.01 K/ L 0.01-0.08 IMMATURE GRANULOCYTES-RELATIVE PERCENT (BEAKER) (test frwl=8397) 1 % 0-1 CBC W/PLT COUNT & AUTO [id number] 15:39:00* Test Item Value Reference Range Comments WHITE BLOOD CELL COUNT (BEAKER) (test ghuu=961) 9.1 K/ L 3.5-10.5 RED BLOOD CELL COUNT (BEAKER) (test gznv=619) 3.11 M/ L 3.93-5.22 HEMOGLOBIN (BEAKER) (test hmcb=419) 9.2 GM/DL 11.2-15.7 HEMATOCRIT (BEAKER) (test qwcy=924) 28.7 % 34.1-44.9 MEAN CORPUSCULAR VOLUME (BEAKER) (test jjhs=341) 92.3 fL 79.4-94.8 MEAN CORPUSCULAR HEMOGLOBIN (BEAKER) (test vhgt=359) 29.6 pg 25.6-32.2 MEAN CORPUSCULAR HEMOGLOBIN CONC (BEAKER) (test biwa=529) 32.1 GM/DL 32.2-35.5 RED CELL DISTRIBUTION WIDTH (BEAKER) (test eusc=928) 15.5 % 11.7-14.4 PLATELET COUNT (BEAKER) (test jagh=929) 568 K/CU MM 150-450 MEAN PLATELET VOLUME (BEAKER) (test anri=489) 9.1 fL 9.4-12.3 NUCLEATED RED BLOOD CELLS (BEAKER) (test lgmb=976) 0 /100 WBC 0-0 NEUTROPHILS RELATIVE PERCENT (BEAKER) (test akta=896) 84 % LYMPHOCYTES RELATIVE PERCENT (BEAKER) (test hpgp=413) 11 % MONOCYTES RELATIVE PERCENT (BEAKER) (test ujmb=792) 4 % EOSINOPHILS RELATIVE PERCENT (BEAKER) (test cwfp=309) 0 % BASOPHILS RELATIVE PERCENT (BEAKER) (test bybi=873) 0 % NEUTROPHILS ABSOLUTE COUNT (BEAKER) (test ubzk=985) 7.63 K/ L 1.56-6.13 LYMPHOCYTES ABSOLUTE COUNT (BEAKER) (test amlf=041) 0.97 K/ L 1.18-3.74 MONOCYTES ABSOLUTE COUNT (BEAKER) (test lbrf=867) 0.38 K/ L 0.24-0.36 EOSINOPHILS ABSOLUTE COUNT (BEAKER) (test vjmf=551) 0.00 K/ L 0.04-0.36 BASOPHILS ABSOLUTE COUNT (BEAKER) (test ysir=736) 0.01 K/ L 0.01-0.08 IMMATURE GRANULOCYTES-RELATIVE PERCENT (BEAKER) (test lpdm=8835) 1 % 0-1 BASIC METABOLIC [id number] 05:51:00* Test Item Value Reference Range Comments SODIUM (BEAKER) (test ifln=076) 137 meq/L 136-145 POTASSIUM (BEAKER) (test iqnr=086) 3.6 meq/L 3.5-5.1 CHLORIDE (BEAKER) (test mvki=402) 106 meq/L 98-107 CO2 (BEAKER) (test ipuj=741) 25 meq/L 22-29 BLOOD UREA NITROGEN (BEAKER) (test mcpw=869) 3 mg/dL 7-21 CREATININE (BEAKER) (test qyqd=632) 0.62 mg/dL 0.57-1.25 GLUCOSE RANDOM (BEAKER) (test qgvj=252) 207 mg/dL 70-105 CALCIUM (BEAKER) (test ebgu=254) 8.5 mg/dL 8.4-10.2 EGFR (BEAKER) (test hvpi=2008) 110 mL/min/1.73 sq m ESTIMATED GFR IS NOT ACCURATE CREATININE CLEARANCE IN PREDICTING GLOMERULAR FILTRATION RATE. ESTIMATED GFR IS NOT APPLICABLE FOR DIALYSIS PATIENTS. BASIC METABOLIC [id number] 06:49:00* Test Item Value Reference Range Comments SODIUM (BEAKER) (test qact=999) 136 meq/L 136-145 POTASSIUM (BEAKER) (test olhz=654) 2.7 meq/L 3.5-5.1 CHLORIDE (BEAKER) (test lkmn=047) 102 meq/L 98-107 CO2 (BEAKER) (test lejw=615) 24 meq/L 22-29 BLOOD UREA NITROGEN (BEAKER) (test cora=069) 2 mg/dL 7-21 CREATININE (BEAKER) (test nari=713) 0.56 mg/dL 0.57-1.25 GLUCOSE RANDOM (BEAKER) (test bbcz=492) 76 mg/dL 70-105 CALCIUM (BEAKER) (test jwqp=874) 7.8 mg/dL 8.4-10.2 EGFR (BEAKER) (test jqfc=4132) 123 mL/min/1.73 sq m ESTIMATED GFR IS NOT ACCURATE CREATININE CLEARANCE IN PREDICTING GLOMERULAR FILTRATION RATE. ESTIMATED GFR IS NOT APPLICABLE FOR DIALYSIS PATIENTS. BLOOD [id number] 06:00:00* Test Item Value Reference Range Comments CULTURE (BEAKER) (test tpqe=7868) No growth in 5 days BLOOD [id number] 06:00:00* Test Item Value Reference Range Comments CULTURE (BEAKER) (test jwfc=9105) No growth in 5 days TISSUE [id number] 17:59:00Surgical Pathology Report Case: [id number] Authorizing Provider: Aayush Lewis MD Collected: 06/28/2017 1248 Ordering Location: [address] Received: 06/28/2017 8127 Pathologist: Giovany Drew MD Specimen: Rectal, Bx RECTUM, BIOPSY: - NONSPECIFIC ACTIVE COLITIS, EROSION AND REACTIVE EPITHELIAL CHANGES (SEE COMMENT) Signing Pathologist Direct Phone Line: [phone] signed by Giovany Drew MD on 06/29/2017 at 5:59 PMSections show predominantly nonspecific active colitis with focal erosion and reactive epithelial changes. The crypt architecture is largely preserved and paneth cell metaplasia is not seen. No diagnostic feature of chronic active colitis are seen. The active colitis seen is nonspecific and the possible etiology may include infection, ischemia or drug. Clinical correlation is recommended. Intradepartmental consultation: Dr. Macario Jimenez has been consulted on this case and concurs with the diagnosis.[id number] Rectal biopsyThe specimen is received in a formalin-filled container and labeled with the patient's information labeled "rectal biopsy" and consists of three fragments of munoz-red soft tissue ranging from 0.1 to 0.3 cm, submitted entirely A1. CG/pl Performed.CT, EXTREMITY, LOWER, WITH CONTRAST, [id number] 15:41:00RT leg Calf area; Pyoderma gangrenosum, on abx, worsening wound, concern for ulcer or osteomyelitisFINAL REPORT CT of the right lower extremity with contrast History: Foot pain, chronic, etiol unknown, first study Comparisons: None Technique: CT of the right lower extremity from the right knee to the right ankle was performed with contrast. Axial images were generated as were multiplanar reformatted images in the coronal and sagittal planes. This exam was performed according to our departmental dose optimization program which includes automated exposure control, adjustment of the mA and/or kV according to patient size and/or use of iterative reconstructive technique. Findings: There is a large area of skin and subcutaneous ulceration in the posterior aspect of the right calf from the level of the right proximal tibia to the right distal tibia. There is associated marked subcutaneous edema, consistent with cellulitis or phlegmonous changes without definite drainable collection demonstrated. There is inflammation and edema along the adjacent superficial fascial plane of the posterior compartment of the right calf. There is no fluid in the deep fascial plane. The tendons and muscles are intact. There is no fracture or subluxation. There is diffuse subcutaneous edema throughout the right lower extremity. No suspicious bony lesion or destructive changes are seen. There is a small right knee joint effusion. IMPRESSION:1. Large area of ulceration in the posterior aspect of the right calf with associated cellulitis as above. Signed: Candido Tong MDReport Verified Date/Time: 06/29/2017 15:41:15 Reading Location: [facility] C013X Ortho Consult Reading Room W/PLT COUNT & AUTO [id number] 05:22:00* Test Item Value Reference Range Comments WHITE BLOOD CELL COUNT (BEAKER) (test sjws=725) 10.4 K/ L 3.5-10.5 RED BLOOD CELL COUNT (BEAKER) (test siov=908) 3.04 M/ L 3.93-5.22 HEMOGLOBIN (BEAKER) (test kbys=905) 9.0 GM/DL 11.2-15.7 HEMATOCRIT (BEAKER) (test gllc=574) 28.9 % 34.1-44.9 MEAN CORPUSCULAR VOLUME (BEAKER) (test mglg=678) 95.1 fL 79.4-94.8 MEAN CORPUSCULAR HEMOGLOBIN (BEAKER) (test hbcn=526) 29.6 pg 25.6-32.2 MEAN CORPUSCULAR HEMOGLOBIN CONC (BEAKER) (test ibtr=465) 31.1 GM/DL 32.2-35.5 RED CELL DISTRIBUTION WIDTH (BEAKER) (test ezzx=101) 15.9 % 11.7-14.4 PLATELET COUNT (BEAKER) (test heji=173) 311 K/CU MM 150-450 MEAN PLATELET VOLUME (BEAKER) (test peck=793) 9.3 fL 9.4-12.3 NUCLEATED RED BLOOD CELLS (BEAKER) (test tejh=460) 0 /100 WBC 0-0 NEUTROPHILS RELATIVE PERCENT (BEAKER) (test ibla=513) 76 % LYMPHOCYTES RELATIVE PERCENT (BEAKER) (test bhun=788) 13 % MONOCYTES RELATIVE PERCENT (BEAKER) (test qoow=437) 5 % EOSINOPHILS RELATIVE PERCENT (BEAKER) (test oimd=123) 4 % BASOPHILS RELATIVE PERCENT (BEAKER) (test ahcd=500) 0 % NEUTROPHILS ABSOLUTE COUNT (BEAKER) (test xddq=395) 7.91 K/ L 1.56-6.13 LYMPHOCYTES ABSOLUTE COUNT (BEAKER) (test xqds=974) 1.39 K/ L 1.18-3.74 MONOCYTES ABSOLUTE COUNT (BEAKER) (test vazx=915) 0.54 K/ L 0.24-0.36 EOSINOPHILS ABSOLUTE COUNT (BEAKER) (test dxwv=384) 0.45 K/ L 0.04-0.36 BASOPHILS ABSOLUTE COUNT (BEAKER) (test frjb=445) 0.03 K/ L 0.01-0.08 IMMATURE GRANULOCYTES-RELATIVE PERCENT (BEAKER) (test gops=1354) 1 % 0-1 BASIC METABOLIC [id number] 05:18:00* Test Item Value Reference Range Comments SODIUM (BEAKER) (test mtof=206) 133 meq/L 136-145 POTASSIUM (BEAKER) (test lcpw=625) 4.3 meq/L 3.5-5.1 Specimen moderately hemolyzed CHLORIDE (BEAKER) (test kyqt=977) 105 meq/L 98-107 CO2 (BEAKER) (test hnfv=614) 19 meq/L 22-29 BLOOD UREA NITROGEN (BEAKER) (test aafj=542) 3 mg/dL 7-21 CREATININE (BEAKER) (test ftpq=697) 0.56 mg/dL 0.57-1.25 Specimen moderately hemolyzed GLUCOSE RANDOM (BEAKER) (test dbic=848) 75 mg/dL 70-105 CALCIUM (BEAKER) (test hugp=050) 8.1 mg/dL 8.4-10.2 EGFR (BEAKER) (test yhqb=0422) 123 mL/min/1.73 sq m ESTIMATED GFR IS NOT ACCURATE CREATININE CLEARANCE IN PREDICTING GLOMERULAR FILTRATION RATE. ESTIMATED GFR IS NOT APPLICABLE FOR DIALYSIS PATIENTS. WOUND CULTURE + GRAM [id number] 07:59:00* Test Item Value Reference Range Comments CULTURE (BEAKER) (test bugj=5902) METHICILLIN RESISTANT STAPHYLOCOCCUS AUREUS 4+ Methicillin resistant Staphylococcus aureus Clindamycin (test code=10) Erythromycin (test code=4) Linezolid (test code=40) Nitrofurantoin (test code=23) Oxacillin (test code=14) Rifampin (test code=43) Tetracycline (test code=2) Trimethoprim + Sulfamethoxazole (test code=47) Vancomycin (test code=13) CULTURE (BEAKER) (test umve=8209) METHICILLIN RESISTANT STAPHYLOCOCCUS AUREUS 4+ Methicillin resistant Staphylococcus aureusof a second type Clindamycin (test code=10) Erythromycin (test code=4) Linezolid (test code=40) Oxacillin (test code=14) Rifampin (test code=43) Tetracycline (test code=2) Trimethoprim + Sulfamethoxazole (test code=47) Vancomycin (test code=13) GRAM STAIN RESULT (BEAKER) (test cmug=7168) <1+ WBCs GRAM STAIN RESULT (BEAKER) (test srwx=207438) 4+ gram positive cocci in pairs BASIC METABOLIC [id number] 05:50:00* Test Item Value Reference Range Comments SODIUM (BEAKER) (test nnqu=275) 134 meq/L 136-145 POTASSIUM (BEAKER) (test tfvw=721) 3.0 meq/L 3.5-5.1 CHLORIDE (BEAKER) (test wtrl=227) 101 meq/L 98-107 CO2 (BEAKER) (test zxkb=655) 24 meq/L 22-29 BLOOD UREA NITROGEN (BEAKER) (test ukyv=755) < mg/dL 7-21 CREATININE (BEAKER) (test vkts=898) 0.58 mg/dL 0.57-1.25 GLUCOSE RANDOM (BEAKER) (test tmtq=439) 105 mg/dL 70-105 CALCIUM (BEAKER) (test scrh=468) 8.3 mg/dL 8.4-10.2 EGFR (BEAKER) (test zden=1325) 118 mL/min/1.73 sq m ESTIMATED GFR IS NOT ACCURATE CREATININE CLEARANCE IN PREDICTING GLOMERULAR FILTRATION RATE. ESTIMATED GFR IS NOT APPLICABLE FOR DIALYSIS PATIENTS. CBC W/PLT COUNT & AUTO [id number] 05:16:00* Test Item Value Reference Range Comments WHITE BLOOD CELL COUNT (BEAKER) (test levx=712) 14.9 K/ L 3.5-10.5 RED BLOOD CELL COUNT (BEAKER) (test yfyn=305) 3.09 M/ L 3.93-5.22 HEMOGLOBIN (BEAKER) (test awzu=196) 9.1 GM/DL 11.2-15.7 HEMATOCRIT (BEAKER) (test phxt=032) 28.1 % 34.1-44.9 MEAN CORPUSCULAR VOLUME (BEAKER) (test glkb=654) 90.9 fL 79.4-94.8 MEAN CORPUSCULAR HEMOGLOBIN (BEAKER) (test tnll=796) 29.4 pg 25.6-32.2 MEAN CORPUSCULAR HEMOGLOBIN CONC (BEAKER) (test vjcg=181) 32.4 GM/DL 32.2-35.5 RED CELL DISTRIBUTION WIDTH (BEAKER) (test pppl=794) 15.7 % 11.7-14.4 PLATELET COUNT (BEAKER) (test hazp=987) 327 K/CU MM 150-450 MEAN PLATELET VOLUME (BEAKER) (test obdt=672) 8.7 fL 9.4-12.3 NUCLEATED RED BLOOD CELLS (BEAKER) (test lrwa=422) 0 /100 WBC 0-0 NEUTROPHILS RELATIVE PERCENT (BEAKER) (test nvsx=787) 87 % LYMPHOCYTES RELATIVE PERCENT (BEAKER) (test ajkl=788) 8 % MONOCYTES RELATIVE PERCENT (BEAKER) (test qimw=808) 3 % EOSINOPHILS RELATIVE PERCENT (BEAKER) (test nsbi=909) 1 % BASOPHILS RELATIVE PERCENT (BEAKER) (test zkyn=940) 0 % NEUTROPHILS ABSOLUTE COUNT (BEAKER) (test jkqp=887) 12.87 K/ L 1.56-6.13 LYMPHOCYTES ABSOLUTE COUNT (BEAKER) (test itng=653) 1.11 K/ L 1.18-3.74 MONOCYTES ABSOLUTE COUNT (BEAKER) (test qzii=684) 0.48 K/ L 0.24-0.36 EOSINOPHILS ABSOLUTE COUNT (BEAKER) (test bcvq=024) 0.07 K/ L 0.04-0.36 BASOPHILS ABSOLUTE COUNT (BEAKER) (test fkup=800) 0.03 K/ L 0.01-0.08 IMMATURE GRANULOCYTES-RELATIVE PERCENT (BEAKER) (test qgmy=0020) 2 % 0-1 [id number] 05:15:00* Test Item Value Reference Range Comments PROTIME (BEAKER) (test kpse=428) 14.8 seconds 11.7-14.7 INR (BEAKER) (test grwj=732) 1.2 <=5.9 PARTIAL THROMBOPLASTIN TIME (BEAKER) (test vcbv=802) 38.0 seconds 22.5-36.0 RECOMMENDED COUMADIN/WARFARIN INR THERAPY RANGESSTANDARD DOSE: 2.0 - 3.0 Inclu mignon: PROPHYLAXIS for venous thrombosis, systemic embolization; TREATMENT for ham ous thrombosis and/or pulmonary embolus.HIGH RISK: Target INR is 2.5-3.5 for pat ients with mechanical heart valves.RAD, ABDOMEN/KUB, 1 VIEW [id number] 22:16:00FINAL REPORT EXAM: SUPINE ABDOMEN CLINICAL INDICATION: Colitis. Evaluate for toxic megacolon IMPRESSION: Compared with abdominal CT 06/24/2017, abdominal radiograph 06/26/2017. Lung bases are relatively clear. The bowel gas pattern is nonspecific and relatively gasless. The gasless appearance of the bowel is nonspecific but can be associated with fluid-filled segments. Mild gaseous distention of the transverse colon and associated wall thickening identified on the previous radiograph are no longer appreciated. No evidence of pneumatosis. Evaluation for free air below the diaphragm is limited by supine patient positioning. Repeat cross-sectional imaging could be performed if patient's symptoms persist or progress. Signed: Adebayo Casey MDReport Verified Date/Time: 06/27/2017 22:16:40 Reading Location: [address] Transitional Reading Room US CULTURE + [id number] 08:45:00* Test Item Value Reference Range Comments CULTURE (BEAKER) (test hqgm=9449) No fungus isolated in 28 days FUNGUS SMEAR (BEAKER) (test raoc=4655) No fungi seen RAD, ABDOMEN/KUB, 1 VIEW [id number] 20:15:00Reason for exam:->concern for toxic megacolonFINAL REPORT Abdomen two views supine 06/26/2017 8:13 PM CLINICAL INDICATION: concern for toxic megacolon COMPARISON: None available IMPRESSION: There is no radiographic evidence of bowel obstruction. There is no current ileus, although there is a single loop of asymmetrically prominent, air-filled transverse colon. No abnormal calcifications are seen in the region of the gallbladder or kidneys. A partially calcified lesion in the right hemiabdomen is in keeping with a dermoid. There are no acute-appearing skeletal abnormalities. Signed: Kevin Quesada Verified Date/Time: 06/26/2017 20:15:04 Reading Location: [facility] Radiology Reading Room W/PLT COUNT & AUTO [id number] 14:18:00* Test Item Value Reference Range Comments WHITE BLOOD CELL COUNT (BEAKER) (test bctl=025) 2.1 K/ L 3.5-10.5 RED BLOOD CELL COUNT (BEAKER) (test ocuo=889) 3.09 M/ L 3.93-5.22 HEMOGLOBIN (BEAKER) (test yhzt=063) 9.2 GM/DL 11.2-15.7 HEMATOCRIT (BEAKER) (test osog=879) 29.3 % 34.1-44.9 MEAN CORPUSCULAR VOLUME (BEAKER) (test hotk=940) 94.8 fL 79.4-94.8 MEAN CORPUSCULAR HEMOGLOBIN (BEAKER) (test gkaf=719) 29.8 pg 25.6-32.2 MEAN CORPUSCULAR HEMOGLOBIN CONC (BEAKER) (test rgpo=359) 31.4 GM/DL 32.2-35.5 RED CELL DISTRIBUTION WIDTH (BEAKER) (test lwvp=677) 15.5 % 11.7-14.4 PLATELET COUNT (BEAKER) (test zzbu=737) 370 K/CU MM 150-450 MEAN PLATELET VOLUME (BEAKER) (test ykcr=309) 9.0 fL 9.4-12.3 NUCLEATED RED BLOOD CELLS (BEAKER) (test dyeo=655) 0 /100 WBC 0-0 IMMATURE GRANULOCYTES-RELATIVE PERCENT (BEAKER) (test eihg=6590) 1 % 0-1 (MANUAL DIFFERENTIAL)2017-06-26 14:18:00* Test Item Value Reference Range Comments NEUTROPHILS - REL (DIFF) (BEAKER) (test dahw=6676) 38 % LYMPHOCYTES - REL (DIFF) (BEAKER) (test sjma=7591) 54 % MONOCYTES - REL (DIFF) (BEAKER) (test ssmn=6126) 2 % EOSINOPHILS - REL (DIFF) (BEAKER) (test uohi=5834) 6 % NEUTROPHILS - ABS (DIFF) (BEAKER) (test sftm=4389) 0.80 K/ L 1.80-8.00 LYMPHOCYTES - ABS (DIFF) (BEAKER) (test ciep=0881) 1.13 K/ L 1.48-4.50 MONOCYTES - ABS (DIFF) (BEAKER) (test evbm=9041) 0.04 K/ L 0.00-1.30 EOSINOPHILS - ABS (DIFF) (BEAKER) (test czzk=2454) 0.13 K/ L 0.00-0.50 TOTAL COUNTED (BEAKER) (test shfi=9556) 100 MANUAL NRBC PER 100 CELLS (BEAKER) (test fcbb=1088) 1 /100 WBC 0-0 WBC MORPHOLOGY (BEAKER) (test hylp=497) Normal PLT MORPHOLOGY (BEAKER) (test ekrk=107) Normal POLYCHROMATOPHILLIC RBCS(BEAKER) (test jnvf=761) 1+ few BASIC METABOLIC [id number] 12:09:00* Test Item Value Reference Range Comments SODIUM (BEAKER) (test exhq=642) 139 meq/L 136-145 POTASSIUM (BEAKER) (test ktdl=123) 3.5 meq/L 3.5-5.1 CHLORIDE (BEAKER) (test yody=789) 107 meq/L 98-107 CO2 (BEAKER) (test axxq=675) 26 meq/L 22-29 BLOOD UREA NITROGEN (BEAKER) (test cimt=385) 3 mg/dL 7-21 CREATININE (BEAKER) (test xxjt=146) 0.71 mg/dL 0.57-1.25 GLUCOSE RANDOM (BEAKER) (test lklt=858) 101 mg/dL 70-105 CALCIUM (BEAKER) (test enbl=340) 8.3 mg/dL 8.4-10.2 EGFR (BEAKER) (test weat=1688) 94 mL/min/1.73 sq m ESTIMATED GFR IS NOT ACCURATE CREATININE CLEARANCE IN PREDICTING GLOMERULAR FILTRATION RATE. ESTIMATED GFR IS NOT APPLICABLE FOR DIALYSIS PATIENTS. URINALYSIS W/ [id number] 10:49:00* Test Item Value Reference Range Comments COLOR (BEAKER) (test cwhs=350) Yellow CLARITY (BEAKER) (test hgkh=663) Clear SPECIFIC GRAVITY UA (BEAKER) (test fhfc=506) 1.050 1.001-1.035 PH UA (BEAKER) (test lfcu=011) 6.5 5.0-8.0 PROTEIN UA (BEAKER) (test ptzv=328) 10 mg/dL Negative GLUCOSE UA (BEAKER) (test hmgi=200) Negative Negative KETONES UA (BEAKER) (test ejie=466) Negative Negative BILIRUBIN UA (BEAKER) (test mgya=777) Negative Negative BLOOD UA (BEAKER) (test ygbn=768) Small Negative NITRITE UA (BEAKER) (test ecll=578) Negative Negative LEUKOCYTE ESTERASE UA (BEAKER) (test lfqg=855) Negative Negative UROBILINOGEN UA (BEAKER) (test rztm=253) 0.2 mg/dL 0.2-1.0 RBC UA (BEAKER) (test lbec=037) 1 /HPF WBC UA (BEAKER) (test wagj=826) 3 /HPF MUCUS (BEAKER) (test gjen=2284) Rare SQUAMOUS EPITHELIAL (BEAKER) (test cafn=640) 1 /HPF CASTS (BEAKER) (test pwiz=3050) 2 /LPF SOURCE(BEAKER) (test oawp=6006) Urine, Sterile Collection CLOSTRIDIUM DIFFICILE TOXIN [id number] 09:54:00* Test Item Value Reference Range Comments CLOSTRIDIUM DIFFICILE TOXIN, PCR (BEAKER) (test royn=1852) Detected Not Detected This qualitative real-time polymerase chain reaction assay detects the tcdB gene , encoded on the C.difficile pathogenicity locus (PaLoc). The product of tcdB, toxin B, is a cytotoxin essential for causing C.difficile-associated disease (CD AD) and is found in virtually all toxigenic C.difficile.This assay is performed for patients suspected of having either community-acquired or nosocomial CDAD. Accordingly, only symptomatic patients should be tested and formed stools will b e rejected unless ileus is present (i.e., specified when ordering). Patients ma y be colonized with toxigenic C.difficile strains not causing active disease; th erefore, clinical correlation is needed when deciding how to manage patients wit h a positive test result.The assay has not been validated as a test of cure as a mplifiable nucleic acid may persist after effective treatment; therefore, follow -up testing of a positive result is not recommended.CBC W/PLT COUNT & AUTO [id number] 03:43:00* Test Item Value Reference Range Comments WHITE BLOOD CELL COUNT (BEAKER) (test relo=824) 3.8 K/ L 3.5-10.5 RED BLOOD CELL COUNT (BEAKER) (test slqb=646) 3.13 M/ L 3.93-5.22 HEMOGLOBIN (BEAKER) (test hpbt=185) 9.4 GM/DL 11.2-15.7 HEMATOCRIT (BEAKER) (test stkz=465) 29.6 % 34.1-44.9 MEAN CORPUSCULAR VOLUME (BEAKER) (test wlzg=530) 94.6 fL 79.4-94.8 MEAN CORPUSCULAR HEMOGLOBIN (BEAKER) (test wyka=679) 30.0 pg 25.6-32.2 MEAN CORPUSCULAR HEMOGLOBIN CONC (BEAKER) (test uxqb=737) 31.8 GM/DL 32.2-35.5 RED CELL DISTRIBUTION WIDTH (BEAKER) (test shjn=677) 15.6 % 11.7-14.4 PLATELET COUNT (BEAKER) (test gtfa=434) 352 K/CU MM 150-450 MEAN PLATELET VOLUME (BEAKER) (test vfmu=277) 9.0 fL 9.4-12.3 NUCLEATED RED BLOOD CELLS (BEAKER) (test guuo=518) 0 /100 WBC 0-0 NEUTROPHILS RELATIVE PERCENT (BEAKER) (test dubp=932) 70 % LYMPHOCYTES RELATIVE PERCENT (BEAKER) (test rbiy=109) 22 % MONOCYTES RELATIVE PERCENT (BEAKER) (test sjhm=549) 3 % EOSINOPHILS RELATIVE PERCENT (BEAKER) (test odgp=224) 5 % BASOPHILS RELATIVE PERCENT (BEAKER) (test uswc=378) 1 % NEUTROPHILS ABSOLUTE COUNT (BEAKER) (test mzax=371) 2.67 K/ L 1.56-6.13 LYMPHOCYTES ABSOLUTE COUNT (BEAKER) (test knjx=469) 0.84 K/ L 1.18-3.74 MONOCYTES ABSOLUTE COUNT (BEAKER) (test ucqg=070) 0.10 K/ L 0.24-0.36 EOSINOPHILS ABSOLUTE COUNT (BEAKER) (test zzrw=124) 0.17 K/ L 0.04-0.36 BASOPHILS ABSOLUTE COUNT (BEAKER) (test orzi=730) 0.02 K/ L 0.01-0.08 IMMATURE GRANULOCYTES-RELATIVE PERCENT (BEAKER) (test pnra=4966) 0 % 0-1 (MANUAL DIFFERENTIAL)2017-06-25 03:43:00* Test Item Value Reference Range Comments NEUTROPHILS - REL (DIFF) (BEAKER) (test hubb=4277) 56 % LYMPHOCYTES - REL (DIFF) (BEAKER) (test fggs=0675) 20 % MONOCYTES - REL (DIFF) (BEAKER) (test ehsg=3236) 1 % EOSINOPHILS - REL (DIFF) (BEAKER) (test srar=8272) 5 % BASOPHILS - REL (DIFF) (BEAKER) (test rhuh=8245) 2 % BANDS - REL (DIFF) (BEAKER) (test zmwe=9598) 16 % 0-10 NEUTROPHILS - ABS (DIFF) (BEAKER) (test rbpk=5493) 2.13 K/ L 1.80-8.00 LYMPHOCYTES - ABS (DIFF) (BEAKER) (test cutx=8507) 0.76 K/ L 1.48-4.50 MONOCYTES - ABS (DIFF) (BEAKER) (test kqjb=1550) 0.04 K/ L 0.00-1.30 EOSINOPHILS - ABS (DIFF) (BEAKER) (test kotx=3077) 0.19 K/ L 0.00-0.50 BASOPHILS - ABS (DIFF) (BEAKER) (test aykm=5359) 0.08 K/ L 0.00-0.20 BANDS-ABS (DIFF) (BEAKER) (test vuid=9204) 0.6 K/ L 0.0-0.8 TOTAL COUNTED (BEAKER) (test tnpi=8765) 100 BANDS + SEGMENTED NEUTROPHILS (BEAKER) (test gxlq=7375) 2.74 WBC MORPHOLOGY (BEAKER) (test gseo=002) Normal GIANT PLATELETS (BEAKER) (test oabx=077) Present OVALOCYTES (BEAKER) (test izxz=970) 1+ few BASIC METABOLIC [id number] 03:25:00* Test Item Value Reference Range Comments SODIUM (BEAKER) (test eths=452) 136 meq/L 136-145 POTASSIUM (BEAKER) (test zjil=588) 3.7 meq/L 3.5-5.1 CHLORIDE (BEAKER) (test poph=249) 107 meq/L 98-107 CO2 (BEAKER) (test juge=269) 21 meq/L 22-29 BLOOD UREA NITROGEN (BEAKER) (test yjqd=500) 6 mg/dL 7-21 CREATININE (BEAKER) (test dakx=979) 0.65 mg/dL 0.57-1.25 GLUCOSE RANDOM (BEAKER) (test qxfc=119) 116 mg/dL 70-105 CALCIUM (BEAKER) (test cxyd=339) 8.1 mg/dL 8.4-10.2 EGFR (BEAKER) (test gxjn=9472) 104 mL/min/1.73 sq m ESTIMATED GFR IS NOT ACCURATE CREATININE CLEARANCE IN PREDICTING GLOMERULAR FILTRATION RATE. ESTIMATED GFR IS NOT APPLICABLE FOR DIALYSIS PATIENTS. C-REACTIVE [id number] 03:23:00* Test Item Value Reference Range Comments C-REACTIVE PROTEIN (BEAKER) (test mzwi=830) 15.97 mg/dL 0.00-0.50 POCT-LACTIC ACID, [id number] 00:53:00* Test Item Value Reference Range Comments POC-LACTIC ACID, VENOUS (BEAKER) (test boso=9284) 1.5 mmol/L 0.9-1.7 TESTED AT [facility] [address] [facility] [address] HCG, QUANTITATIVE, [id number] 23:01:00* Test Item Value Reference Range Comments GONADOTROPIN, CHORIONIC (HCG) QUANT (BEAKER) (test wlrs=830) < mIU/mL 0-10 Non- Females: <10 mIU/mL Females: Gestation Age Reference Range(mIU/mL) 0.2-1 Week 5-50 1-2 Weeks 50-500 2-3 Weeks 100-5,000 3-4 Weeks 500-10,000 4-5 Weeks 1,000-50,000 5-6 Weeks 10,000-100,000 6-8 Weeks 15,000-200,000 2-3 Months 10,000-100,000 POCT-LACTIC ACID, VENOUS 2017-06-24 22:14:00* Test Item Value Reference Range Comments POC-LACTIC ACID, VENOUS (BEAKER) (test xgfv=7656) 2.4 mmol/L 0.9-1.7 TESTED AT [facility] [address] [facility] [address] CBC W/PLT COUNT & AUTO [id number] 21:10:00* Test Item Value Reference Range Comments WHITE BLOOD CELL COUNT (BEAKER) (test ocsl=482) 5.1 K/ L 3.5-10.5 RED BLOOD CELL COUNT (BEAKER) (test qjzr=512) 3.96 M/ L 3.93-5.22 HEMOGLOBIN (BEAKER) (test arll=153) 11.7 GM/DL 11.2-15.7 HEMATOCRIT (BEAKER) (test urjo=784) 37.6 % 34.1-44.9 MEAN CORPUSCULAR VOLUME (BEAKER) (test hwwj=518) 94.9 fL 79.4-94.8 MEAN CORPUSCULAR HEMOGLOBIN (BEAKER) (test aybb=100) 29.5 pg 25.6-32.2 MEAN CORPUSCULAR HEMOGLOBIN CONC (BEAKER) (test chbk=025) 31.1 GM/DL 32.2-35.5 RED CELL DISTRIBUTION WIDTH (BEAKER) (test zdnb=663) 15.7 % 11.7-14.4 PLATELET COUNT (BEAKER) (test jroc=178) 451 K/CU MM 150-450 MEAN PLATELET VOLUME (BEAKER) (test gudo=582) 9.3 fL 9.4-12.3 NUCLEATED RED BLOOD CELLS (BEAKER) (test ocmi=704) 0 /100 WBC 0-0 NEUTROPHILS RELATIVE PERCENT (BEAKER) (test civj=540) 73 % LYMPHOCYTES RELATIVE PERCENT (BEAKER) (test iypt=727) 20 % MONOCYTES RELATIVE PERCENT (BEAKER) (test dzqv=846) 2 % EOSINOPHILS RELATIVE PERCENT (BEAKER) (test tvqh=375) 4 % BASOPHILS RELATIVE PERCENT (BEAKER) (test lwze=064) 1 % NEUTROPHILS ABSOLUTE COUNT (BEAKER) (test ysdk=138) 3.69 K/ L 1.56-6.13 LYMPHOCYTES ABSOLUTE COUNT (BEAKER) (test mcnv=222) 1.03 K/ L 1.18-3.74 MONOCYTES ABSOLUTE COUNT (BEAKER) (test kzwi=102) 0.10 K/ L 0.24-0.36 EOSINOPHILS ABSOLUTE COUNT (BEAKER) (test ykau=446) 0.21 K/ L 0.04-0.36 BASOPHILS ABSOLUTE COUNT (BEAKER) (test trrw=632) 0.04 K/ L 0.01-0.08 IMMATURE GRANULOCYTES-RELATIVE PERCENT (BEAKER) (test edxa=7428) 0 % 0-1 (MANUAL DIFFERENTIAL)2017-06-24 21:10:00* Test Item Value Reference Range Comments NEUTROPHILS - REL (DIFF) (BEAKER) (test pxci=0828) 54 % LYMPHOCYTES - REL (DIFF) (BEAKER) (test gsqf=0293) 16 % MONOCYTES - REL (DIFF) (BEAKER) (test cnoy=9382) 1 % EOSINOPHILS - REL (DIFF) (BEAKER) (test kjis=2420) 4 % BASOPHILS - REL (DIFF) (BEAKER) (test xzip=4092) 1 % BANDS - REL (DIFF) (BEAKER) (test dhek=6914) 24 % 0-10 NEUTROPHILS - ABS (DIFF) (BEAKER) (test jalk=6767) 2.75 K/ L 1.80-8.00 LYMPHOCYTES - ABS (DIFF) (BEAKER) (test njwm=9159) 0.82 K/ L 1.48-4.50 MONOCYTES - ABS (DIFF) (BEAKER) (test aioz=7962) 0.05 K/ L 0.00-1.30 EOSINOPHILS - ABS (DIFF) (BEAKER) (test osle=5310) 0.20 K/ L 0.00-0.50 BASOPHILS - ABS (DIFF) (BEAKER) (test pxqw=8985) 0.05 K/ L 0.00-0.20 BANDS-ABS (DIFF) (BEAKER) (test wgai=4661) 1.2 K/ L 0.0-0.8 TOTAL COUNTED (BEAKER) (test rhyj=3433) 100 BANDS + SEGMENTED NEUTROPHILS (BEAKER) (test arzd=0846) 3.98 WBC MORPHOLOGY (BEAKER) (test xgwr=851) Normal PLT MORPHOLOGY (BEAKER) (test jlnd=491) Normal ELLIPTOCYTES (BEAKER) (test euwa=475) 1+ few TEAR DROP CELLS (BEAKER) (test avoa=493) 1+ few [id number] 20:44:00* Test Item Value Reference Range Comments MAGNESIUM (BEAKER) (test rtil=795) 2.6 mg/dL 1.6-2.6 Specimen markedly hemolyzed COMPREHENSIVE METABOLIC [id number] 20:44:00* Test Item Value Reference Range Comments TOTAL PROTEIN (BEAKER) (test rnwm=213) 7.7 gm/dL 6.0-8.3 Specimen markedly hemolyzed ALBUMIN (BEAKER) (test uzkp=4095) 3.3 g/dL 3.5-5.0 Specimen markedly hemolyzed ALKALINE PHOSPHATASE (BEAKER) (test lzpv=039) 94 U/L 40-150 BILIRUBIN TOTAL (BEAKER) (test eott=540) 0.4 mg/dL 0.2-1.2 Specimen markedly hemolyzed SODIUM (BEAKER) (test btkb=864) 132 meq/L 136-145 POTASSIUM (BEAKER) (test iqnu=958) 5.9 meq/L 3.5-5.1 Specimen markedly hemolyzed CHLORIDE (BEAKER) (test peue=054) 103 meq/L 98-107 CO2 (BEAKER) (test wekc=344) 19 meq/L 22-29 BLOOD UREA NITROGEN (BEAKER) (test kbaw=918) 7 mg/dL 7-21 CREATININE (BEAKER) (test tnmn=880) 0.75 mg/dL 0.57-1.25 Specimen markedly hemolyzed GLUCOSE RANDOM (BEAKER) (test ipkc=858) 113 mg/dL 70-105 CALCIUM (BEAKER) (test uiua=117) 8.9 mg/dL 8.4-10.2 AST (SGOT) (BEAKER) (test oiuv=027) 64 U/L 5-34 Specimen markedly hemolyzed ALT (SGPT) (BEAKER) (test usyw=386) 92 U/L 6-55 Specimen markedly hemolyzed EGFR (BEAKER) (test qvvq=7608) 88 mL/min/1.73 sq m ESTIMATED GFR IS NOT ACCURATE CREATININE CLEARANCE IN PREDICTING GLOMERULAR FILTRATION RATE. ESTIMATED GFR IS NOT APPLICABLE FOR DIALYSIS PATIENTS. POCT-GLUCOSE [id number] 20:30:00* Test Item Value Reference Range Comments POC-GLUCOSE METER (BEAKER) (test srbh=7276) 123 mg/dL 70-110 TESTED AT [facility] [address] [facility] [address] POCT-LACTIC ACID, [id number] 20:24:00* Test Item Value Reference Range Comments POC-LACTIC ACID, VENOUS (BEAKER) (test ctmx=5340) 1.6 mmol/L 0.9-1.7 TESTED AT [address] [address] OVA AND PARASITE [id number] 14:24:00* Test Item Value Reference Range Comments DIRECT SMEAR - O\\T\\P (BEAKER) (test fzcj=368) No ova or parasites seen No ova or parasites seen CONCENTRATE SMEAR - O\\T\\P (BEAKER) (test vngp=682) No ova or parasites seen No ova or parasites seen TRICHROME SMEAR - O\\T\\P (BEAKER) (test pgdu=220) No ova or parasites seen No ova or parasites seen TISSUE [id number] 15:27:00Surgical Pathology Report Case: [id number] Authorizing Provider: Moi Caruso MD Collected: 05/25/2017 1501 Ordering Location: [address] Received: 05/28/2017 0810 Service Pathologist: Gurdeep Stoddard MD Specimen: Skin SITE NOT SPECIFIED, SKIN PUNCH BIOPSY:- INFLAMED SCAR WITH DERMAL PURPURA Preliminary result electronically signed by Gurdeep Stoddard MD on 05/29/2017 at 1:18 [id number]; [id number] x 3Rule out pyoderma gangrenosum versus infectious Skin punch biopsyReceived in formalin labeled with the patient's information only is a 0.3 cm in diameter pale munoz skin punch biopsy excised to a depth of 0.5 cm. Th e specimen margin is inked, the specimen is bisected and entirely submitted in c assette A1. DB/plSections show skin with dermal fibrosis. There are increased vessels. Chronic inflammatory infiltrate is present. There are extravasated red blood cells.The following special studies were performed on this case and the i nterpretation is incorporated in the diagnostic report above:GMS - NegativeGram - NegativeFite - NegativeBLOOD [id number] 06:00:00* Test Item Value Reference Range Comments CULTURE (BEAKER) (test bpjv=1715) No growth in 5 days VANCOMYCIN LEVEL, [id number] 03:46:00* Test Item Value Reference Range Comments VANCOMYCIN TROUGH (BEAKER) (test wazo=507) 17.4 ug/mL 10.0-20.0 SURGICALLY OBTAINED CULTURE + GRAM [id number] 09:19:00* Test Item Value Reference Range Comments CULTURE (BEAKER) (test rqpq=9014) ESCHERICHIA COLI <1+ Escherichia coli Amikacin (test code=1) Ampicillin + Sulbactam (test code=6) Aztreonam (test code=32) Cefepime (test code=51) Cefoxitin (test code=68) Ceftazidime (test code=27) Ceftriaxone (test code=52) Ertapenem (test code=38) Gentamicin (test code=18) Levofloxacin (test code=22) Meropenem (test code=34) Nitrofurantoin (test code=23) Piperacillin + Tazobactam (test code=29) Tetracycline (test code=2) Tobramycin (test code=25) Trimethoprim + Sulfamethoxazole (test code=47) GRAM STAIN RESULT (BEAKER) (test gheh=3832) No WBCs GRAM STAIN RESULT (BEAKER) (test ctyk=831023) No organisms seen STOOL CULTURE + SHIGA [id number] 10:18:00* Test Item Value Reference Range Comments CULTURE (BEAKER) (test rqwo=1973) No Salmonella, Shigella or Campylobacter isolated VANCOMYCIN LEVEL, [id number] 02:34:00* Test Item Value Reference Range Comments VANCOMYCIN TROUGH (BEAKER) (test ddlg=674) 8.5 ug/mL 10.0-20.0 SHIGA TOXIN [id number] 13:59:00* Test Item Value Reference Range Comments SHIGA TOXIN 1 (BEAKER) (test ssuy=9488) Not detected Not detected SHIGA TOXIN 2 (BEAKER) (test txjf=4700) Not detected Not detected STOOL PATH [id number] 10:18:00* Test Item Value Reference Range Comments PATHOGEN EXAM CHARGED (BEAKER) (test kumu=5935) Done SEDIMENTATION [id number] 09:23:00* Test Item Value Reference Range Comments SEDIMENTATION RATE, ERYTHROCYTE (BEAKER) (test qixt=080) 19 mm/HR 0-20 BASIC METABOLIC [id number] 07:06:00* Test Item Value Reference Range Comments SODIUM (BEAKER) (test zros=062) 140 meq/L 136-145 POTASSIUM (BEAKER) (test fzpt=957) 3.5 meq/L 3.5-5.1 CHLORIDE (BEAKER) (test rakh=127) 107 meq/L 98-107 CO2 (BEAKER) (test cvdm=453) 24 meq/L 22-29 BLOOD UREA NITROGEN (BEAKER) (test hifh=404) 2 mg/dL 7-21 CREATININE (BEAKER) (test awuk=611) 0.70 mg/dL 0.57-1.25 GLUCOSE RANDOM (BEAKER) (test ajsi=585) 105 mg/dL 70-105 CALCIUM (BEAKER) (test kirt=659) 8.3 mg/dL 8.4-10.2 EGFR (BEAKER) (test ibyf=8850) 95 mL/min/1.73 sq m ESTIMATED GFR IS NOT ACCURATE CREATININE CLEARANCE IN PREDICTING GLOMERULAR FILTRATION RATE. ESTIMATED GFR IS NOT APPLICABLE FOR DIALYSIS PATIENTS. C-REACTIVE [id number] 07:06:00* Test Item Value Reference Range Comments C-REACTIVE PROTEIN (BEAKER) (test kyqe=002) 6.58 mg/dL 0.00-0.50 LACTIC ACID, VENOUS, WHOLE [id number] 07:02:00* Test Item Value Reference Range Comments LACTATE BLOOD VENOUS (2) (BEAKER) (test entw=9434) 2.7 mmol/L 0.5-2.2 Effective 02/23/2016: Units/Reference Range ChangeNew: 0.5-2.2 mmol/L Previous: 5 -20 mg/dLCBC W/PLT COUNT & AUTO [id number] 06:50:00* Test Item Value Reference Range Comments WHITE BLOOD CELL COUNT (BEAKER) (test phky=808) 7.4 K/ L 3.5-10.5 RED BLOOD CELL COUNT (BEAKER) (test ighy=381) 3.84 M/ L 3.93-5.22 HEMOGLOBIN (BEAKER) (test kqqw=404) 11.3 GM/DL 11.2-15.7 HEMATOCRIT (BEAKER) (test dvqy=843) 36.1 % 34.1-44.9 MEAN CORPUSCULAR VOLUME (BEAKER) (test uotr=196) 94.0 fL 79.4-94.8 MEAN CORPUSCULAR HEMOGLOBIN (BEAKER) (test pubg=141) 29.4 pg 25.6-32.2 MEAN CORPUSCULAR HEMOGLOBIN CONC (BEAKER) (test erwx=265) 31.3 GM/DL 32.2-35.5 RED CELL DISTRIBUTION WIDTH (BEAKER) (test jvms=242) 14.7 % 11.7-14.4 PLATELET COUNT (BEAKER) (test uauo=548) 422 K/CU MM 150-450 MEAN PLATELET VOLUME (BEAKER) (test cyuz=960) 9.3 fL 9.4-12.3 NUCLEATED RED BLOOD CELLS (BEAKER) (test uzxe=365) 0 /100 WBC 0-0 NEUTROPHILS RELATIVE PERCENT (BEAKER) (test okhf=170) 53 % LYMPHOCYTES RELATIVE PERCENT (BEAKER) (test tpkw=328) 28 % MONOCYTES RELATIVE PERCENT (BEAKER) (test ludh=465) 13 % EOSINOPHILS RELATIVE PERCENT (BEAKER) (test rsjy=768) 6 % BASOPHILS RELATIVE PERCENT (BEAKER) (test prfl=935) 1 % NEUTROPHILS ABSOLUTE COUNT (BEAKER) (test dskl=419) 3.88 K/ L 1.56-6.13 LYMPHOCYTES ABSOLUTE COUNT (BEAKER) (test yaln=259) 2.02 K/ L 1.18-3.74 MONOCYTES ABSOLUTE COUNT (BEAKER) (test kthm=155) 0.93 K/ L 0.24-0.36 EOSINOPHILS ABSOLUTE COUNT (BEAKER) (test irxc=379) 0.41 K/ L 0.04-0.36 BASOPHILS ABSOLUTE COUNT (BEAKER) (test fwyi=993) 0.05 K/ L 0.01-0.08 IMMATURE GRANULOCYTES-RELATIVE PERCENT (BEAKER) (test tvuy=4400) 1 % 0-1 CLOSTRIDIUM DIFFICILE TOXIN [id number] 10:30:00* Test Item Value Reference Range Comments CLOSTRIDIUM DIFFICILE TOXIN, PCR (BEAKER) (test zdpt=9465) Not Detected Not Detected This qualitative real-time polymerase chain reaction assay detects the tcdB gene , encoded on the C.difficile pathogenicity locus (PaLoc). The product of tcdB, toxin B, is a cytotoxin essential for causing C.difficile-associated disease (CD AD) and is found in virtually all toxigenic C.difficile.This assay is performed for patients suspected of having either community-acquired or nosocomial CDAD. Accordingly, only symptomatic patients should be tested and formed stools will b e rejected unless ileus is present (i.e., specified when ordering). Patients ma y be colonized with toxigenic C.difficile strains not causing active disease; th erefore, clinical correlation is needed when deciding how to manage patients wit h a positive test result.The assay has not been validated as a test of cure as a mplifiable nucleic acid may persist after effective treatment; therefore, follow -up testing of a positive result is not recommended. SCREEN, URINE 2017-05-25 02:17:00* Test Item Value Reference Range Comments TEST URINE (BEAKER) (test vtta=920) Negative URINALYSIS W/ [id number] 02:10:00* Test Item Value Reference Range Comments COLOR (BEAKER) (test dwnp=478) Yellow CLARITY (BEAKER) (test uqap=258) Hazy SPECIFIC GRAVITY UA (BEAKER) (test botb=356) 1.022 1.001-1.035 PH UA (BEAKER) (test svzm=219) 5.5 5.0-8.0 PROTEIN UA (BEAKER) (test yxke=841) 30 mg/dL Negative GLUCOSE UA (BEAKER) (test snhz=913) Negative Negative KETONES UA (BEAKER) (test layh=662) 60 mg/dL Negative BILIRUBIN UA (BEAKER) (test aehq=383) Negative Negative BLOOD UA (BEAKER) (test qpfe=685) Moderate Negative NITRITE UA (BEAKER) (test gsko=845) Negative Negative LEUKOCYTE ESTERASE UA (BEAKER) (test tktb=560) Large Negative UROBILINOGEN UA (BEAKER) (test dvog=671) 0.2 mg/dL 0.2-1.0 RBC UA (BEAKER) (test hwwp=168) 4 /HPF WBC UA (BEAKER) (test hihx=867) 29 /HPF BACTERIA (BEAKER) (test itst=619) Occasional MUCUS (BEAKER) (test vusp=4515) Many SQUAMOUS EPITHELIAL (BEAKER) (test ekia=707) 36 /HPF HYALINE CASTS (BEAKER) (test dnfn=879) 7 /LPF YEAST (BEAKER) (test dkye=6337) Rare BUDDING YEAST PRESENT SOURCE(BEAKER) (test xizm=7704) Urine, Clean Catch [id number] 18:29:00* Test Item Value Reference Range Comments LIPASE (BEAKER) (test puvx=404) 7 U/L 8-78 BASIC METABOLIC [id number] 18:29:00* Test Item Value Reference Range Comments SODIUM (BEAKER) (test irke=069) 135 meq/L 136-145 POTASSIUM (BEAKER) (test wiyl=719) 3.5 meq/L 3.5-5.1 CHLORIDE (BEAKER) (test lbni=638) 105 meq/L 98-107 CO2 (BEAKER) (test zpdg=656) 17 meq/L 22-29 BLOOD UREA NITROGEN (BEAKER) (test xmov=841) 5 mg/dL 7-21 CREATININE (BEAKER) (test darr=803) 0.74 mg/dL 0.57-1.25 GLUCOSE RANDOM (BEAKER) (test lzxq=156) 87 mg/dL 70-105 CALCIUM (BEAKER) (test hnqg=600) 9.3 mg/dL 8.4-10.2 EGFR (BEAKER) (test varw=2791) 89 mL/min/1.73 sq m ESTIMATED GFR IS NOT ACCURATE CREATININE CLEARANCE IN PREDICTING GLOMERULAR FILTRATION RATE. ESTIMATED GFR IS NOT APPLICABLE FOR DIALYSIS PATIENTS. HEPATIC FUNCTION [id number] 18:29:00* Test Item Value Reference Range Comments TOTAL PROTEIN (BEAKER) (test llvp=213) 7.3 gm/dL 6.0-8.3 ALBUMIN (BEAKER) (test jpfg=4774) 3.7 g/dL 3.5-5.0 BILIRUBIN TOTAL (BEAKER) (test xycv=346) 0.2 mg/dL 0.2-1.2 BILIRUBIN DIRECT (BEAKER) (test ppxv=301) 0.1 mg/dL 0.1-0.5 ALKALINE PHOSPHATASE (BEAKER) (test ciou=610) 87 U/L 40-150 AST (SGOT) (BEAKER) (test hmgd=170) 12 U/L 5-34 ALT (SGPT) (BEAKER) (test eftq=122) 13 U/L 6-55 CBC W/PLT COUNT & AUTO [id number] 18:04:00* Test Item Value Reference Range Comments WHITE BLOOD CELL COUNT (BEAKER) (test lnlw=691) 10.4 K/ L 3.5-10.5 RED BLOOD CELL COUNT (BEAKER) (test wyrm=915) 4.37 M/ L 3.93-5.22 HEMOGLOBIN (BEAKER) (test uqgu=863) 12.8 GM/DL 11.2-15.7 HEMATOCRIT (BEAKER) (test lpdw=345) 41.0 % 34.1-44.9 MEAN CORPUSCULAR VOLUME (BEAKER) (test wjsf=788) 93.8 fL 79.4-94.8 MEAN CORPUSCULAR HEMOGLOBIN (BEAKER) (test xouf=361) 29.3 pg 25.6-32.2 MEAN CORPUSCULAR HEMOGLOBIN CONC (BEAKER) (test hzok=848) 31.2 GM/DL 32.2-35.5 RED CELL DISTRIBUTION WIDTH (BEAKER) (test sviq=900) 14.6 % 11.7-14.4 PLATELET COUNT (BEAKER) (test zrym=850) 450 K/CU MM 150-450 MEAN PLATELET VOLUME (BEAKER) (test imda=615) 9.5 fL 9.4-12.3 NUCLEATED RED BLOOD CELLS (BEAKER) (test wich=281) 0 /100 WBC 0-0 NEUTROPHILS RELATIVE PERCENT (BEAKER) (test asna=039) 62 % LYMPHOCYTES RELATIVE PERCENT (BEAKER) (test usdv=457) 22 % MONOCYTES RELATIVE PERCENT (BEAKER) (test rebs=127) 11 % EOSINOPHILS RELATIVE PERCENT (BEAKER) (test emst=533) 3 % BASOPHILS RELATIVE PERCENT (BEAKER) (test ofgn=545) 1 % NEUTROPHILS ABSOLUTE COUNT (BEAKER) (test gsua=191) 6.50 K/ L 1.56-6.13 LYMPHOCYTES ABSOLUTE COUNT (BEAKER) (test bkdb=007) 2.32 K/ L 1.18-3.74 MONOCYTES ABSOLUTE COUNT (BEAKER) (test eylh=521) 1.16 K/ L 0.24-0.36 EOSINOPHILS ABSOLUTE COUNT (BEAKER) (test wubp=215) 0.29 K/ L 0.04-0.36 BASOPHILS ABSOLUTE COUNT (BEAKER) (test qaor=541) 0.07 K/ L 0.01-0.08 IMMATURE GRANULOCYTES-RELATIVE PERCENT (BEAKER) (test thjd=5483) 1 % 0-1 BLOOD [id number] 00:00:00* Test Item Value Reference Range Comments CULTURE (BEAKER) (test djzj=9001) No growth in 5 days BLOOD [id number] 00:00:00* Test Item Value Reference Range Comments CULTURE (BEAKER) (test fyrb=5450) No growth in 5 days BLOOD [id number] 11:00:00* Test Item Value Reference Range Comments CULTURE (BEAKER) (test bjwh=1391) No growth in 5 days BLOOD [id number] 11:00:00* Test Item Value Reference Range Comments CULTURE (BEAKER) (test fsqj=1564) No growth in 5 days CBC W/PLT COUNT & AUTO [id number] 04:00:00* Test Item Value Reference Range Comments WHITE BLOOD CELL COUNT (BEAKER) (test ggud=427) 15.5 K/ L 4.0-10.0 RED BLOOD CELL COUNT (BEAKER) (test qexg=361) 3.84 M/ L 4.00-5.00 HEMOGLOBIN (BEAKER) (test wost=522) 11.8 GM/DL 12.0-15.0 HEMATOCRIT (BEAKER) (test fnrj=837) 36.3 % 36.0-45.0 MEAN CORPUSCULAR VOLUME (BEAKER) (test bvsa=798) 94.7 fL 82.0-99.0 MEAN CORPUSCULAR HEMOGLOBIN (BEAKER) (test drcr=320) 30.6 pg 27.0-33.0 MEAN CORPUSCULAR HEMOGLOBIN CONC (BEAKER) (test sufg=757) 32.3 GM/DL 32.0-36.0 RED CELL DISTRIBUTION WIDTH (BEAKER) (test pbhu=697) 16.3 % 10.3-14.2 PLATELET COUNT (BEAKER) (test cmtt=184) 482 K/CU MM 150-430 MEAN PLATELET VOLUME (BEAKER) (test vyvv=938) 6.8 fL 6.5-10.5 NUCLEATED RED BLOOD CELLS (BEAKER) (test nngf=181) 0 /100 WBC 0-0 NEUTROPHILS RELATIVE PERCENT (BEAKER) (test dspi=900) 71 % LYMPHOCYTES RELATIVE PERCENT (BEAKER) (test iutg=948) 22 % MONOCYTES RELATIVE PERCENT (BEAKER) (test jcdw=562) 5 % EOSINOPHILS RELATIVE PERCENT (BEAKER) (test blas=403) 2 % BASOPHILS RELATIVE PERCENT (BEAKER) (test tkky=740) 0 % NEUTROPHILS ABSOLUTE COUNT (BEAKER) (test urjm=196) 11.00 K/ L 1.80-8.00 LYMPHOCYTES ABSOLUTE COUNT (BEAKER) (test neox=578) 3.44 K/ L 1.48-4.50 MONOCYTES ABSOLUTE COUNT (BEAKER) (test lfxf=522) 0.77 K/ L 0.00-1.30 EOSINOPHILS ABSOLUTE COUNT (BEAKER) (test zfin=523) 0.29 K/ L 0.00-0.50 BASOPHILS ABSOLUTE COUNT (BEAKER) (test xpxa=497) 0.07 K/ L 0.00-0.20 0.00VANCOMYCIN LEVEL, [id number] 10:05:00* Test Item Value Reference Range Comments VANCOMYCIN TROUGH (BEAKER) (test hdds=455) 15.0 ug/mL 10.0-20.0 Please draw 30 mins before AM vanc dose.CBC W/PLT COUNT & AUTO DIFFERENTIAL 2017-05-09 05:09:00* Test Item Value Reference Range Comments WHITE BLOOD CELL COUNT (BEAKER) (test mldv=659) 16.8 K/ L 4.0-10.0 RED BLOOD CELL COUNT (BEAKER) (test xmqv=115) 3.69 M/ L 4.00-5.00 HEMOGLOBIN (BEAKER) (test kpck=965) 11.2 GM/DL 12.0-15.0 HEMATOCRIT (BEAKER) (test xsvz=437) 35.2 % 36.0-45.0 MEAN CORPUSCULAR VOLUME (BEAKER) (test mlaf=355) 95.4 fL 82.0-99.0 MEAN CORPUSCULAR HEMOGLOBIN (BEAKER) (test xots=483) 30.3 pg 27.0-33.0 MEAN CORPUSCULAR HEMOGLOBIN CONC (BEAKER) (test mwzg=999) 31.8 GM/DL 32.0-36.0 RED CELL DISTRIBUTION WIDTH (BEAKER) (test pfiq=796) 14.7 % 10.3-14.2 PLATELET COUNT (BEAKER) (test nphw=753) 501 K/CU MM 150-430 MEAN PLATELET VOLUME (BEAKER) (test xvyp=173) 6.6 fL 6.5-10.5 NUCLEATED RED BLOOD CELLS (BEAKER) (test myfq=723) 0 /100 WBC 0-0 NEUTROPHILS RELATIVE PERCENT (BEAKER) (test nszg=020) 73 % LYMPHOCYTES RELATIVE PERCENT (BEAKER) (test ohay=694) 20 % MONOCYTES RELATIVE PERCENT (BEAKER) (test iolq=926) 7 % EOSINOPHILS RELATIVE PERCENT (BEAKER) (test zxak=576) 1 % BASOPHILS RELATIVE PERCENT (BEAKER) (test xaue=056) 0 % NEUTROPHILS ABSOLUTE COUNT (BEAKER) (test lzac=066) 12.20 K/ L 1.80-8.00 LYMPHOCYTES ABSOLUTE COUNT (BEAKER) (test khhe=075) 3.30 K/ L 1.48-4.50 MONOCYTES ABSOLUTE COUNT (BEAKER) (test ssgt=183) 1.11 K/ L 0.00-1.30 EOSINOPHILS ABSOLUTE COUNT (BEAKER) (test islm=989) 0.20 K/ L 0.00-0.50 BASOPHILS ABSOLUTE COUNT (BEAKER) (test lpnd=504) 0.03 K/ L 0.00-0.20 [id number] 05:07:00* Test Item Value Reference Range Comments MAGNESIUM (BEAKER) (test mkqs=749) 1.8 mg/dL 1.6-2.6 BASIC METABOLIC [id number] 05:07:00* Test Item Value Reference Range Comments SODIUM (BEAKER) (test vesp=476) 139 meq/L 136-145 POTASSIUM (BEAKER) (test qlaw=774) 3.9 meq/L 3.5-5.1 CHLORIDE (BEAKER) (test uknu=151) 106 meq/L 98-107 CO2 (BEAKER) (test yccd=838) 24 meq/L 22-29 BLOOD UREA NITROGEN (BEAKER) (test ywcb=089) 15 mg/dL 7-21 CREATININE (BEAKER) (test qnlh=167) 0.76 mg/dL 0.57-1.25 GLUCOSE RANDOM (BEAKER) (test rwwa=669) 108 mg/dL 70-105 CALCIUM (BEAKER) (test blnx=072) 8.7 mg/dL 8.4-10.2 EGFR (BEAKER) (test fppz=7170) 87 mL/min/1.73 sq m ESTIMATED GFR IS NOT ACCURATE CREATININE CLEARANCE IN PREDICTING GLOMERULAR FILTRATION RATE. ESTIMATED GFR IS NOT APPLICABLE FOR DIALYSIS PATIENTS. CBC W/PLT COUNT & AUTO [id number] 07:09:00* Test Item Value Reference Range Comments WHITE BLOOD CELL COUNT (BEAKER) (test lenv=436) 17.5 K/ L 4.0-10.0 RED BLOOD CELL COUNT (BEAKER) (test ejfj=862) 3.64 M/ L 4.00-5.00 HEMOGLOBIN (BEAKER) (test ytuz=056) 11.0 GM/DL 12.0-15.0 HEMATOCRIT (BEAKER) (test rymu=532) 34.9 % 36.0-45.0 MEAN CORPUSCULAR VOLUME (BEAKER) (test cakb=670) 95.7 fL 82.0-99.0 MEAN CORPUSCULAR HEMOGLOBIN (BEAKER) (test bqsb=091) 30.3 pg 27.0-33.0 MEAN CORPUSCULAR HEMOGLOBIN CONC (BEAKER) (test xbxx=589) 31.7 GM/DL 32.0-36.0 RED CELL DISTRIBUTION WIDTH (BEAKER) (test awdm=587) 15.0 % 10.3-14.2 PLATELET COUNT (BEAKER) (test omnv=246) 532 K/CU MM 150-430 MEAN PLATELET VOLUME (BEAKER) (test ggig=124) 6.4 fL 6.5-10.5 NUCLEATED RED BLOOD CELLS (BEAKER) (test lqyf=399) 0 /100 WBC 0-0 NEUTROPHILS RELATIVE PERCENT (BEAKER) (test xrhg=227) 83 % LYMPHOCYTES RELATIVE PERCENT (BEAKER) (test exnf=460) 13 % MONOCYTES RELATIVE PERCENT (BEAKER) (test ejwj=278) 4 % EOSINOPHILS RELATIVE PERCENT (BEAKER) (test agzq=627) 0 % BASOPHILS RELATIVE PERCENT (BEAKER) (test atjp=476) 0 % NEUTROPHILS ABSOLUTE COUNT (BEAKER) (test esvc=054) 14.50 K/ L 1.80-8.00 LYMPHOCYTES ABSOLUTE COUNT (BEAKER) (test pmcn=854) 2.21 K/ L 1.48-4.50 MONOCYTES ABSOLUTE COUNT (BEAKER) (test hddf=978) 0.71 K/ L 0.00-1.30 EOSINOPHILS ABSOLUTE COUNT (BEAKER) (test nkbj=245) 0.06 K/ L 0.00-0.50 BASOPHILS ABSOLUTE COUNT (BEAKER) (test jxut=011) 0.03 K/ L 0.00-0.20 [id number] 06:53:00* Test Item Value Reference Range Comments MAGNESIUM (BEAKER) (test kidk=189) 1.8 mg/dL 1.6-2.6 BASIC METABOLIC [id number] 06:53:00* Test Item Value Reference Range Comments SODIUM (BEAKER) (test kldm=168) 139 meq/L 136-145 POTASSIUM (BEAKER) (test onzo=300) 4.0 meq/L 3.5-5.1 CHLORIDE (BEAKER) (test ahwt=696) 104 meq/L 98-107 CO2 (BEAKER) (test syti=377) 25 meq/L 22-29 BLOOD UREA NITROGEN (BEAKER) (test jrib=001) 14 mg/dL 7-21 CREATININE (BEAKER) (test mvrx=347) 0.69 mg/dL 0.57-1.25 GLUCOSE RANDOM (BEAKER) (test tarb=411) 131 mg/dL 70-105 CALCIUM (BEAKER) (test hdvq=079) 9.2 mg/dL 8.4-10.2 EGFR (BEAKER) (test qrqg=2141) 97 mL/min/1.73 sq m ESTIMATED GFR IS NOT ACCURATE CREATININE CLEARANCE IN PREDICTING GLOMERULAR FILTRATION RATE. ESTIMATED GFR IS NOT APPLICABLE FOR DIALYSIS PATIENTS. POCT-GLUCOSE [id number] 17:54:00* Test Item Value Reference Range Comments POC-GLUCOSE METER (BEAKER) (test gayh=6486) 174 mg/dL 70-110 TESTED AT [facility] [address] [facility] [address] CBC W/PLT COUNT & AUTO [id number] 13:59:00* Test Item Value Reference Range Comments WHITE BLOOD CELL COUNT (BEAKER) (test yviz=124) 24.7 K/ L 4.0-10.0 RED BLOOD CELL COUNT (BEAKER) (test etlg=143) 3.87 M/ L 4.00-5.00 HEMOGLOBIN (BEAKER) (test svzo=206) 11.3 GM/DL 12.0-15.0 HEMATOCRIT (BEAKER) (test ebvy=835) 37.2 % 36.0-45.0 MEAN CORPUSCULAR VOLUME (BEAKER) (test tppf=677) 96.0 fL 82.0-99.0 MEAN CORPUSCULAR HEMOGLOBIN (BEAKER) (test hjao=453) 29.1 pg 27.0-33.0 MEAN CORPUSCULAR HEMOGLOBIN CONC (BEAKER) (test ippq=492) 30.3 GM/DL 32.0-36.0 RED CELL DISTRIBUTION WIDTH (BEAKER) (test vzaw=291) 14.8 % 10.3-14.2 PLATELET COUNT (BEAKER) (test zyhk=167) 562 K/CU MM 150-430 MEAN PLATELET VOLUME (BEAKER) (test yllg=763) 6.5 fL 6.5-10.5 NUCLEATED RED BLOOD CELLS (BEAKER) (test zkqz=946) 0 /100 WBC 0-0 NEUTROPHILS RELATIVE PERCENT (BEAKER) (test scqn=402) 89 % LYMPHOCYTES RELATIVE PERCENT (BEAKER) (test ikjo=647) 8 % MONOCYTES RELATIVE PERCENT (BEAKER) (test rvyj=802) 3 % EOSINOPHILS RELATIVE PERCENT (BEAKER) (test hmlk=344) 0 % BASOPHILS RELATIVE PERCENT (BEAKER) (test udlz=699) 0 % NEUTROPHILS ABSOLUTE COUNT (BEAKER) (test gzqa=388) 22.10 K/ L 1.80-8.00 LYMPHOCYTES ABSOLUTE COUNT (BEAKER) (test ywmy=925) 1.92 K/ L 1.48-4.50 MONOCYTES ABSOLUTE COUNT (BEAKER) (test emge=720) 0.68 K/ L 0.00-1.30 EOSINOPHILS ABSOLUTE COUNT (BEAKER) (test bbgy=696) 0.03 K/ L 0.00-0.50 BASOPHILS ABSOLUTE COUNT (BEAKER) (test mzxl=090) 0.01 K/ L 0.00-0.20 0.000.560.000.000.500.000.000.000.00(MANUAL DIFFERENTIAL)2017-05-07 13:59:00* Test Item Value Reference Range Comments TOTAL COUNTED (BEAKER) (test gtum=6745) WBC MORPHOLOGY (BEAKER) (test dyli=062) Normal PLT MORPHOLOGY (BEAKER) (test ckxh=578) Normal RBC MORPHOLOGY (BEAKER) (test dwve=415) Normal WOUND CULTURE + GRAM [id number] 09:18:00* Test Item Value Reference Range Comments CULTURE (BEAKER) (test lvcu=1236) No growth GRAM STAIN RESULT (BEAKER) (test kyxg=1358) <1+ WBCs GRAM STAIN RESULT (BEAKER) (test noiq=10426) No organisms seen [id number] 07:18:00* Test Item Value Reference Range Comments MAGNESIUM (BEAKER) (test qxlw=004) 1.8 mg/dL 1.6-2.6 BASIC METABOLIC [id number] 07:18:00* Test Item Value Reference Range Comments SODIUM (BEAKER) (test mewr=266) 137 meq/L 136-145 POTASSIUM (BEAKER) (test ojhh=886) 4.4 meq/L 3.5-5.1 CHLORIDE (BEAKER) (test itoq=998) 100 meq/L 98-107 CO2 (BEAKER) (test sclb=991) 27 meq/L 22-29 BLOOD UREA NITROGEN (BEAKER) (test ebct=613) 13 mg/dL 7-21 CREATININE (BEAKER) (test dbzg=858) 0.84 mg/dL 0.57-1.25 GLUCOSE RANDOM (BEAKER) (test ofyu=432) 132 mg/dL 70-105 CALCIUM (BEAKER) (test qeab=509) 9.4 mg/dL 8.4-10.2 EGFR (BEAKER) (test rdbx=9972) 77 mL/min/1.73 sq m ESTIMATED GFR IS NOT ACCURATE CREATININE CLEARANCE IN PREDICTING GLOMERULAR FILTRATION RATE. ESTIMATED GFR IS NOT APPLICABLE FOR DIALYSIS PATIENTS. VANCOMYCIN LEVEL, [id number] 21:08:00* Test Item Value Reference Range Comments VANCOMYCIN TROUGH (BEAKER) (test zgid=731) 7.8 ug/mL 10.0-20.0 Please draw 30 mins before PM dose.CBC W/PLT COUNT & AUTO [id number] 08:44:00* Test Item Value Reference Range Comments WHITE BLOOD CELL COUNT (BEAKER) (test kwbw=840) 20.5 K/ L 4.0-10.0 RED BLOOD CELL COUNT (BEAKER) (test atck=890) 4.02 M/ L 4.00-5.00 HEMOGLOBIN (BEAKER) (test zerl=983) 12.0 GM/DL 12.0-15.0 HEMATOCRIT (BEAKER) (test szbc=958) 38.5 % 36.0-45.0 MEAN CORPUSCULAR VOLUME (BEAKER) (test vfwo=693) 95.9 fL 82.0-99.0 MEAN CORPUSCULAR HEMOGLOBIN (BEAKER) (test emgj=972) 29.9 pg 27.0-33.0 MEAN CORPUSCULAR HEMOGLOBIN CONC (BEAKER) (test nngy=684) 31.2 GM/DL 32.0-36.0 RED CELL DISTRIBUTION WIDTH (BEAKER) (test cpkj=483) 14.7 % 10.3-14.2 PLATELET COUNT (BEAKER) (test kste=727) 586 K/CU MM 150-430 MEAN PLATELET VOLUME (BEAKER) (test lzxb=215) 6.2 fL 6.5-10.5 NUCLEATED RED BLOOD CELLS (BEAKER) (test qiui=175) 0 /100 WBC 0-0 NEUTROPHILS RELATIVE PERCENT (BEAKER) (test ewak=720) 91 % LYMPHOCYTES RELATIVE PERCENT (BEAKER) (test kldn=874) 6 % MONOCYTES RELATIVE PERCENT (BEAKER) (test fiwq=321) 2 % EOSINOPHILS RELATIVE PERCENT (BEAKER) (test nocy=357) 0 % BASOPHILS RELATIVE PERCENT (BEAKER) (test bqbr=986) 0 % NEUTROPHILS ABSOLUTE COUNT (BEAKER) (test uwab=808) 18.70 K/ L 1.80-8.00 LYMPHOCYTES ABSOLUTE COUNT (BEAKER) (test szjt=413) 1.20 K/ L 1.48-4.50 MONOCYTES ABSOLUTE COUNT (BEAKER) (test xrkk=609) 0.48 K/ L 0.00-1.30 EOSINOPHILS ABSOLUTE COUNT (BEAKER) (test rgls=635) 0.03 K/ L 0.00-0.50 BASOPHILS ABSOLUTE COUNT (BEAKER) (test msaq=582) 0.08 K/ L 0.00-0.20 (MANUAL DIFFERENTIAL)2017-05-06 08:44:00* Test Item Value Reference Range Comments TOTAL COUNTED (BEAKER) (test mtwq=9074) WBC MORPHOLOGY (BEAKER) (test fhik=786) Normal PLT MORPHOLOGY (BEAKER) (test tvni=415) Normal RBC MORPHOLOGY (BEAKER) (test ueot=820) Normal COMPREHENSIVE METABOLIC [id number] 05:42:00* Test Item Value Reference Range Comments TOTAL PROTEIN (BEAKER) (test onpf=316) 7.1 gm/dL 6.0-8.3 ALBUMIN (BEAKER) (test bful=5986) 3.6 g/dL 3.5-5.0 ALKALINE PHOSPHATASE (BEAKER) (test wykq=982) 126 U/L 40-150 BILIRUBIN TOTAL (BEAKER) (test vsen=173) 0.2 mg/dL 0.2-1.2 SODIUM (BEAKER) (test mick=509) 136 meq/L 136-145 POTASSIUM (BEAKER) (test qjet=699) 4.5 meq/L 3.5-5.1 CHLORIDE (BEAKER) (test jqqs=628) 102 meq/L 98-107 CO2 (BEAKER) (test ijdy=823) 22 meq/L 22-29 BLOOD UREA NITROGEN (BEAKER) (test dnzs=426) 8 mg/dL 7-21 CREATININE (BEAKER) (test pqvx=221) 0.68 mg/dL 0.57-1.25 GLUCOSE RANDOM (BEAKER) (test wuwq=446) 183 mg/dL 70-105 CALCIUM (BEAKER) (test wahx=851) 9.9 mg/dL 8.4-10.2 AST (SGOT) (BEAKER) (test drjv=079) 24 U/L 5-34 ALT (SGPT) (BEAKER) (test xxsa=910) 135 U/L 6-55 EGFR (BEAKER) (test ogyp=5098) 98 mL/min/1.73 sq m ESTIMATED GFR IS NOT ACCURATE CREATININE CLEARANCE IN PREDICTING GLOMERULAR FILTRATION RATE. ESTIMATED GFR IS NOT APPLICABLE FOR DIALYSIS PATIENTS. CBC W/PLT COUNT & AUTO [id number] 09:29:00* Test Item Value Reference Range Comments WHITE BLOOD CELL COUNT (BEAKER) (test sqgc=082) 20.5 K/ L 4.0-10.0 RED BLOOD CELL COUNT (BEAKER) (test srly=534) 4.35 M/ L 4.00-5.00 HEMOGLOBIN (BEAKER) (test pelu=608) 13.0 GM/DL 12.0-15.0 HEMATOCRIT (BEAKER) (test gytk=934) 41.5 % 36.0-45.0 MEAN CORPUSCULAR VOLUME (BEAKER) (test xspm=045) 95.4 fL 82.0-99.0 MEAN CORPUSCULAR HEMOGLOBIN (BEAKER) (test cjpn=922) 30.0 pg 27.0-33.0 MEAN CORPUSCULAR HEMOGLOBIN CONC (BEAKER) (test stwt=040) 31.4 GM/DL 32.0-36.0 RED CELL DISTRIBUTION WIDTH (BEAKER) (test fbks=084) 15.0 % 10.3-14.2 PLATELET COUNT (BEAKER) (test xodt=762) 620 K/CU MM 150-430 MEAN PLATELET VOLUME (BEAKER) (test nkva=244) 6.2 fL 6.5-10.5 NUCLEATED RED BLOOD CELLS (BEAKER) (test eofo=784) 0 /100 WBC 0-0 NEUTROPHILS RELATIVE PERCENT (BEAKER) (test hpgh=078) 81 % LYMPHOCYTES RELATIVE PERCENT (BEAKER) (test ogsd=723) 13 % MONOCYTES RELATIVE PERCENT (BEAKER) (test gpjd=584) 4 % EOSINOPHILS RELATIVE PERCENT (BEAKER) (test usry=163) 1 % BASOPHILS RELATIVE PERCENT (BEAKER) (test gaqg=167) 0 % NEUTROPHILS ABSOLUTE COUNT (BEAKER) (test feia=634) 16.70 K/ L 1.80-8.00 LYMPHOCYTES ABSOLUTE COUNT (BEAKER) (test ubuj=972) 2.70 K/ L 1.48-4.50 MONOCYTES ABSOLUTE COUNT (BEAKER) (test ivfj=682) 0.91 K/ L 0.00-1.30 EOSINOPHILS ABSOLUTE COUNT (BEAKER) (test xoai=276) 0.12 K/ L 0.00-0.50 BASOPHILS ABSOLUTE COUNT (BEAKER) (test isqw=438) 0.08 K/ L 0.00-0.20 0.000.530.000.000.520.000.000.000.00(MANUAL DIFFERENTIAL)2017-05-05 09:29:00* Test Item Value Reference Range Comments TOTAL COUNTED (BEAKER) (test dqrb=8771) WBC MORPHOLOGY (BEAKER) (test wubb=177) Normal RBC MORPHOLOGY (BEAKER) (test eljs=434) Normal LARGE PLT(BEAKER) (test yifh=4140) Present BASIC METABOLIC [id number] 07:06:00* Test Item Value Reference Range Comments SODIUM (BEAKER) (test zskp=418) 137 meq/L 136-145 POTASSIUM (BEAKER) (test qgjg=254) 4.0 meq/L 3.5-5.1 CHLORIDE (BEAKER) (test nvxq=278) 102 meq/L 98-107 CO2 (BEAKER) (test gktq=604) 24 meq/L 22-29 BLOOD UREA NITROGEN (BEAKER) (test ddse=007) 11 mg/dL 7-21 CREATININE (BEAKER) (test meus=868) 0.73 mg/dL 0.57-1.25 GLUCOSE RANDOM (BEAKER) (test txaq=063) 91 mg/dL 70-105 CALCIUM (BEAKER) (test jmqo=825) 9.3 mg/dL 8.4-10.2 EGFR (BEAKER) (test lola=0812) 91 mL/min/1.73 sq m ESTIMATED GFR IS NOT ACCURATE CREATININE CLEARANCE IN PREDICTING GLOMERULAR FILTRATION RATE. ESTIMATED GFR IS NOT APPLICABLE FOR DIALYSIS PATIENTS. POCT-LACTIC ACID, [id number] 06:05:00* Test Item Value Reference Range Comments POC-LACTIC ACID, VENOUS (BEAKER) (test bxoi=5877) 1.4 mmol/L 0.9-1.7 [address] [address] POCT-GLUCOSE [id number] 17:53:00* Test Item Value Reference Range Comments POC-GLUCOSE METER (BEAKER) (test yhzj=1805) 132 mg/dL 70-110 TESTED AT [address] [address] BLOOD [id number] 14:28:00* Test Item Value Reference Range Comments CULTURE (BEAKER) (test rhuw=0989) No growth in 5 days BLOOD [id number] 14:28:00* Test Item Value Reference Range Comments CULTURE (BEAKER) (test sdqf=3757) No growth in 5 days POCT-GLUCOSE [id number] 12:15:00* Test Item Value Reference Range Comments POC-GLUCOSE METER (BEAKER) (test cnwx=8127) 170 mg/dL 70-110 TESTED AT [facility] [address] [facility] [address] POCT-GLUCOSE [id number] 12:15:00* Test Item Value Reference Range Comments POC-GLUCOSE METER (BEAKER) (test fkyy=1545) 146 mg/dL 70-110 TESTED AT [place] [id number] [facility] [address] BASIC METABOLIC [id number] 06:23:00* Test Item Value Reference Range Comments SODIUM (BEAKER) (test pvdq=769) 143 meq/L 136-145 POTASSIUM (BEAKER) (test iwzi=332) 3.1 meq/L 3.5-5.1 CHLORIDE (BEAKER) (test fpsm=655) 103 meq/L 98-107 CO2 (BEAKER) (test ymhd=354) 26 meq/L 22-29 BLOOD UREA NITROGEN (BEAKER) (test jxzq=441) 7 mg/dL 7-21 CREATININE (BEAKER) (test ethw=705) 0.71 mg/dL 0.57-1.25 GLUCOSE RANDOM (BEAKER) (test sbzd=417) 121 mg/dL 70-105 CALCIUM (BEAKER) (test mlvm=440) 9.1 mg/dL 8.4-10.2 EGFR (BEAKER) (test kogk=0103) mL/min/1.73 sq m INSUFFICIENT CLINICAL DATA TO CALCULATE ESTIMATED GFR. CBC (HEMOGRAM ONLY)2017-02-19 05:41:00* Test Item Value Reference Range Comments WHITE BLOOD CELL COUNT (BEAKER) (test mlcu=472) 17.6 K/ L 4.0-10.0 RED BLOOD CELL COUNT (BEAKER) (test zqoe=937) 4.18 M/ L 4.00-5.00 HEMOGLOBIN (BEAKER) (test sgcm=067) 12.5 GM/DL 12.0-15.0 HEMATOCRIT (BEAKER) (test vyob=300) 41.0 % 36.0-45.0 MEAN CORPUSCULAR VOLUME (BEAKER) (test ihaa=497) 98.2 fL 82.0-99.0 MEAN CORPUSCULAR HEMOGLOBIN (BEAKER) (test ztcv=604) 29.9 pg 27.0-33.0 MEAN CORPUSCULAR HEMOGLOBIN CONC (BEAKER) (test iqjs=812) 30.5 GM/DL 32.0-36.0 RED CELL DISTRIBUTION WIDTH (BEAKER) (test hdmg=101) 17.8 % 10.3-14.2 PLATELET COUNT (BEAKER) (test hfmi=172) 390 K/CU MM 150-430 MEAN PLATELET VOLUME (BEAKER) (test vvbn=744) 6.8 fL 6.5-10.5 NUCLEATED RED BLOOD CELLS (BEAKER) (test wwxu=444) 1 /100 WBC 0-0 0.000.700.000.000.000.00POCT-GLUCOSE [id number] 20:56:00* Test Item Value Reference Range Comments POC-GLUCOSE METER (BEAKER) (test oetm=8710) 242 mg/dL 70-110 TESTED AT [address] [address] POCT-GLUCOSE [id number] 17:42:00* Test Item Value Reference Range Comments POC-GLUCOSE METER (BEAKER) (test wmkf=5641) 267 mg/dL 70-110 TESTED AT [address] [address] POCT-GLUCOSE [id number] 11:59:00* Test Item Value Reference Range Comments POC-GLUCOSE METER (BEAKER) (test gbey=9836) 261 mg/dL 70-110 TESTED AT [address] [address] POCT-GLUCOSE [id number] 08:08:00* Test Item Value Reference Range Comments POC-GLUCOSE METER (BEAKER) (test tjfj=0913) 186 mg/dL 70-110 TESTED AT [address] [address] CBC (HEMOGRAM ONLY)2017-02-18 07:17:00* Test Item Value Reference Range Comments WHITE BLOOD CELL COUNT (BEAKER) (test ofqv=089) 17.9 K/ L 4.0-10.0 RED BLOOD CELL COUNT (BEAKER) (test umxk=629) 3.76 M/ L 4.00-5.00 HEMOGLOBIN (BEAKER) (test nebn=798) 11.4 GM/DL 12.0-15.0 HEMATOCRIT (BEAKER) (test yvgj=132) 36.4 % 36.0-45.0 MEAN CORPUSCULAR VOLUME (BEAKER) (test zzzy=757) 96.9 fL 82.0-99.0 MEAN CORPUSCULAR HEMOGLOBIN (BEAKER) (test depa=716) 30.3 pg 27.0-33.0 MEAN CORPUSCULAR HEMOGLOBIN CONC (BEAKER) (test xhaz=024) 31.2 GM/DL 32.0-36.0 RED CELL DISTRIBUTION WIDTH (BEAKER) (test usdo=905) 18.4 % 10.3-14.2 PLATELET COUNT (BEAKER) (test utly=053) 322 K/CU MM 150-430 MEAN PLATELET VOLUME (BEAKER) (test vufm=641) 8.0 fL 6.5-10.5 NUCLEATED RED BLOOD CELLS (BEAKER) (test blgg=036) 0 /100 WBC 0-0 0.000.610.000.000.780.000.000.000.00BASI METABOLIC [id number] 06:53:00* Test Item Value Reference Range Comments SODIUM (BEAKER) (test tadt=400) 141 meq/L 136-145 POTASSIUM (BEAKER) (test xfkq=912) 3.7 meq/L 3.5-5.1 Specimen slightly hemolyzed CHLORIDE (BEAKER) (test qzmz=884) 105 meq/L 98-107 CO2 (BEAKER) (test ynba=659) 25 meq/L 22-29 BLOOD UREA NITROGEN (BEAKER) (test znde=548) 8 mg/dL 7-21 CREATININE (BEAKER) (test ysbc=205) 0.77 mg/dL 0.57-1.25 Specimen slightly hemolyzed GLUCOSE RANDOM (BEAKER) (test udvc=330) 241 mg/dL 70-105 CALCIUM (BEAKER) (test qjut=028) 8.7 mg/dL 8.4-10.2 EGFR (BEAKER) (test tzow=0347) mL/min/1.73 sq m INSUFFICIENT CLINICAL DATA TO CALCULATE ESTIMATED GFR. POCT-GLUCOSE [id number] 23:08:00* Test Item Value Reference Range Comments POC-GLUCOSE METER (BEAKER) (test stex=8638) 250 mg/dL 70-110 TESTED AT [facility] [address] [facility] [address] POCT-GLUCOSE [id number] 17:43:00* Test Item Value Reference Range Comments POC-GLUCOSE METER (BEAKER) (test bfpp=7554) 214 mg/dL 70-110 TESTED AT [address] [address] POCT-GLUCOSE [id number] 11:50:00* Test Item Value Reference Range Comments POC-GLUCOSE METER (BEAKER) (test tlqe=2925) 274 mg/dL 70-110 TESTED AT [address] [address] WOUND CULTURE + GRAM [id number] 10:33:00* Test Item Value Reference Range Comments CULTURE (BEAKER) (test vuyz=8523) METHICILLIN RESISTANT STAPHYLOCOCCUS AUREUS 4+ Methicillin resistant Staphylococcus aureus Clindamycin (test code=10) Erythromycin (test code=4) Linezolid (test code=40) Oxacillin (test code=14) Rifampin (test code=43) Tetracycline (test code=2) Trimethoprim + Sulfamethoxazole (test code=47) Vancomycin (test code=13) CULTURE (BEAKER) (test nfww=33963) KLEBSIELLA PNEUMONIAE <1+ Klebsiella pneumoniae Amikacin (test code=1) Ampicillin + Sulbactam (test code=6) Aztreonam (test code=32) Cefepime (test code=51) Cefoxitin (test code=68) Ceftazidime (test code=27) Ceftriaxone (test code=52) Ertapenem (test code=38) Gentamicin (test code=18) Levofloxacin (test code=22) Meropenem (test code=34) Piperacillin + Tazobactam (test code=29) Tetracycline (test code=2) Tobramycin (test code=25) Trimethoprim + Sulfamethoxazole (test code=47) GRAM STAIN RESULT (BEAKER) (test nwgj=3564) <1+ WBCs GRAM STAIN RESULT (BEAKER) (test hdif=365661) <1+ gram positive cocci in pairs GRAM STAIN RESULT (BEAKER) (test aybk=888657) <1+ gram variable rods 4+ skin floraPOCT-GLUCOSE [id number] 08:35:00* Test Item Value Reference Range Comments POC-GLUCOSE METER (BEAKER) (test inwy=8729) 130 mg/dL 70-110 TESTED AT [address] [place] [address] BASIC METABOLIC [id number] 02:51:00* Test Item Value Reference Range Comments SODIUM (BEAKER) (test ekur=839) 141 meq/L 136-145 POTASSIUM (BEAKER) (test xiyh=937) 3.7 meq/L 3.5-5.1 CHLORIDE (BEAKER) (test pgct=491) 105 meq/L 98-107 CO2 (BEAKER) (test mbgs=842) 24 meq/L 22-29 BLOOD UREA NITROGEN (BEAKER) (test esuw=909) 7 mg/dL 7-21 CREATININE (BEAKER) (test wunz=610) 0.76 mg/dL 0.57-1.25 GLUCOSE RANDOM (BEAKER) (test ptjb=668) 255 mg/dL 70-105 CALCIUM (BEAKER) (test ocvg=972) 8.6 mg/dL 8.4-10.2 EGFR (BEAKER) (test nxag=8132) mL/min/1.73 sq m INSUFFICIENT CLINICAL DATA TO CALCULATE ESTIMATED GFR. [id number] 02:22:00* Test Item Value Reference Range Comments MAGNESIUM (BEAKER) (test mxwy=837) 2.3 mg/dL 1.6-2.6 VANCOMYCIN LEVEL, [id number] 02:21:00* Test Item Value Reference Range Comments VANCOMYCIN TROUGH (BEAKER) (test jpap=261) 8.4 ug/mL 10.0-20.0 30 min prior to fourth dose; [facility] 2017-02-17 01:46:00* Test Item Value Reference Range Comments WHITE BLOOD CELL COUNT (BEAKER) (test lpcz=886) 15.0 K/ L 4.0-10.0 RED BLOOD CELL COUNT (BEAKER) (test ahbc=166) 3.78 M/ L 4.00-5.00 HEMOGLOBIN (BEAKER) (test kvdt=428) 11.2 GM/DL 12.0-15.0 HEMATOCRIT (BEAKER) (test zvtz=950) 36.5 % 36.0-45.0 MEAN CORPUSCULAR VOLUME (BEAKER) (test kwyt=103) 96.6 fL 82.0-99.0 MEAN CORPUSCULAR HEMOGLOBIN (BEAKER) (test lcfy=524) 29.8 pg 27.0-33.0 MEAN CORPUSCULAR HEMOGLOBIN CONC (BEAKER) (test umkz=503) 30.8 GM/DL 32.0-36.0 RED CELL DISTRIBUTION WIDTH (BEAKER) (test xcjx=288) 17.9 % 10.3-14.2 PLATELET COUNT (BEAKER) (test udxh=572) 291 K/CU MM 150-430 MEAN PLATELET VOLUME (BEAKER) (test atuk=734) 7.6 fL 6.5-10.5 NUCLEATED RED BLOOD CELLS (BEAKER) (test izvr=187) 0 /100 WBC 0-0 0.000.500.000.000.630.000.000.000.00CBC (HEMOGRAM ONLY)2017-02-16 07:19:00* Test Item Value Reference Range Comments WHITE BLOOD CELL COUNT (BEAKER) (test jklq=493) 13.1 K/ L 4.0-10.0 RED BLOOD CELL COUNT (BEAKER) (test qttl=995) 3.69 M/ L 4.00-5.00 HEMOGLOBIN (BEAKER) (test xjso=249) 11.4 GM/DL 12.0-15.0 HEMATOCRIT (BEAKER) (test trqx=678) 35.6 % 36.0-45.0 MEAN CORPUSCULAR VOLUME (BEAKER) (test zoyc=326) 96.5 fL 82.0-99.0 MEAN CORPUSCULAR HEMOGLOBIN (BEAKER) (test ejol=816) 30.9 pg 27.0-33.0 MEAN CORPUSCULAR HEMOGLOBIN CONC (BEAKER) (test rmec=485) 32.0 GM/DL 32.0-36.0 RED CELL DISTRIBUTION WIDTH (BEAKER) (test embp=945) 17.8 % 10.3-14.2 PLATELET COUNT (BEAKER) (test vfnt=042) 335 K/CU MM 150-430 MEAN PLATELET VOLUME (BEAKER) (test wrah=724) 7.1 fL 6.5-10.5 NUCLEATED RED BLOOD CELLS (BEAKER) (test trvs=879) 0 /100 WBC 0-0 0.00BASIC METABOLIC [id number] 07:00:00* Test Item Value Reference Range Comments SODIUM (BEAKER) (test dwav=750) 140 meq/L 136-145 POTASSIUM (BEAKER) (test psux=600) 3.7 meq/L 3.5-5.1 CHLORIDE (BEAKER) (test cvaw=880) 104 meq/L 98-107 CO2 (BEAKER) (test wxol=458) 26 meq/L 22-29 BLOOD UREA NITROGEN (BEAKER) (test mywy=270) 11 mg/dL 7-21 CREATININE (BEAKER) (test uzjj=275) 0.80 mg/dL 0.57-1.25 GLUCOSE RANDOM (BEAKER) (test ynso=996) 213 mg/dL 70-105 CALCIUM (BEAKER) (test cxsi=193) 8.9 mg/dL 8.4-10.2 EGFR (BEAKER) (test fycs=9292) mL/min/1.73 sq m INSUFFICIENT CLINICAL DATA TO CALCULATE ESTIMATED GFR. BASIC METABOLIC [id number] 06:54:00* Test Item Value Reference Range Comments SODIUM (BEAKER) (test muta=377) 138 meq/L 136-145 POTASSIUM (BEAKER) (test kgxl=404) 4.1 meq/L 3.5-5.1 CHLORIDE (BEAKER) (test nfos=960) 105 meq/L 98-107 CO2 (BEAKER) (test ixln=649) 23 meq/L 22-29 BLOOD UREA NITROGEN (BEAKER) (test uujd=669) 9 mg/dL 7-21 CREATININE (BEAKER) (test eexy=237) 0.76 mg/dL 0.57-1.25 GLUCOSE RANDOM (BEAKER) (test ohgh=610) 193 mg/dL 70-105 CALCIUM (BEAKER) (test encf=312) 8.7 mg/dL 8.4-10.2 EGFR (BEAKER) (test hlev=7066) mL/min/1.73 sq m INSUFFICIENT CLINICAL DATA TO CALCULATE ESTIMATED GFR. CBC W/PLT COUNT & AUTO [id number] 06:52:00* Test Item Value Reference Range Comments WHITE BLOOD CELL COUNT (BEAKER) (test dcse=700) 10.6 K/ L 4.0-10.0 RED BLOOD CELL COUNT (BEAKER) (test krrl=071) 3.39 M/ L 4.00-5.00 HEMOGLOBIN (BEAKER) (test ikya=314) 10.5 GM/DL 12.0-15.0 HEMATOCRIT (BEAKER) (test qhxi=348) 32.6 % 36.0-45.0 MEAN CORPUSCULAR VOLUME (BEAKER) (test qbwv=560) 96.2 fL 82.0-99.0 MEAN CORPUSCULAR HEMOGLOBIN (BEAKER) (test mqvk=433) 30.9 pg 27.0-33.0 MEAN CORPUSCULAR HEMOGLOBIN CONC (BEAKER) (test mzhu=018) 32.1 GM/DL 32.0-36.0 RED CELL DISTRIBUTION WIDTH (BEAKER) (test ofbf=630) 17.5 % 10.3-14.2 PLATELET COUNT (BEAKER) (test zgfb=888) 320 K/CU MM 150-430 MEAN PLATELET VOLUME (BEAKER) (test jtrd=887) 7.0 fL 6.5-10.5 NUCLEATED RED BLOOD CELLS (BEAKER) (test cxwf=951) 0 /100 WBC 0-0 NEUTROPHILS RELATIVE PERCENT (BEAKER) (test qqpf=272) 82 % LYMPHOCYTES RELATIVE PERCENT (BEAKER) (test aodh=195) 12 % MONOCYTES RELATIVE PERCENT (BEAKER) (test ptxn=378) 6 % EOSINOPHILS RELATIVE PERCENT (BEAKER) (test dwbt=904) 0 % BASOPHILS RELATIVE PERCENT (BEAKER) (test yrjb=552) 0 % NEUTROPHILS ABSOLUTE COUNT (BEAKER) (test ucwf=904) 8.70 K/ L 1.80-8.00 LYMPHOCYTES ABSOLUTE COUNT (BEAKER) (test mwoo=493) 1.23 K/ L 1.48-4.50 MONOCYTES ABSOLUTE COUNT (BEAKER) (test bwvh=218) 0.63 K/ L 0.00-1.30 EOSINOPHILS ABSOLUTE COUNT (BEAKER) (test gwrx=115) 0.04 K/ L 0.00-0.50 BASOPHILS ABSOLUTE COUNT (BEAKER) (test vdcf=796) 0.02 K/ L 0.00-0.20 0.00URINALYSIS W/ REFLEX URINE [id number] 22:37:00* Test Item Value Reference Range Comments COLOR (BEAKER) (test cqmw=777) Yellow CLARITY (BEAKER) (test lgaw=509) Clear SPECIFIC GRAVITY UA (BEAKER) (test nzoz=579) 1.025 1.001-1.035 PH UA (BEAKER) (test cylg=840) 6.5 5.0-8.0 PROTEIN UA (BEAKER) (test gpmb=340) 10 mg/dL Negative GLUCOSE UA (BEAKER) (test anbi=331) >1000 mg/dL Negative KETONES UA (BEAKER) (test wreg=746) Negative Negative BILIRUBIN UA (BEAKER) (test fnqb=509) Negative Negative BLOOD UA (BEAKER) (test ojzt=046) Negative Negative NITRITE UA (BEAKER) (test xqlp=568) Negative Negative LEUKOCYTE ESTERASE UA (BEAKER) (test lqcy=788) Negative Negative UROBILINOGEN UA (BEAKER) (test nmkx=369) 0.2 mg/dL 0.2-1.0 RBC UA (BEAKER) (test gzro=060) 1 /HPF WBC UA (BEAKER) (test zaqu=070) 1 /HPF BACTERIA (BEAKER) (test vess=882) Rare MUCUS (BEAKER) (test isph=7853) Rare SQUAMOUS EPITHELIAL (BEAKER) (test wbtw=610) 8 /HPF SOURCE(BEAKER) (test klvp=9628) BASIC METABOLIC [id number] 05:27:00* Test Item Value Reference Range Comments SODIUM (BEAKER) (test tkot=118) 139 meq/L 136-145 POTASSIUM (BEAKER) (test yrlx=849) 3.9 meq/L 3.5-5.1 CHLORIDE (BEAKER) (test ykjx=512) 106 meq/L 98-107 CO2 (BEAKER) (test ikpu=005) 26 meq/L 22-29 BLOOD UREA NITROGEN (BEAKER) (test mfzj=727) 5 mg/dL 7-21 CREATININE (BEAKER) (test jhix=192) 0.66 mg/dL 0.57-1.25 GLUCOSE RANDOM (BEAKER) (test nuxj=606) 152 mg/dL 70-105 CALCIUM (BEAKER) (test dhni=823) 8.7 mg/dL 8.4-10.2 EGFR (BEAKER) (test hujn=6839) mL/min/1.73 sq m INSUFFICIENT CLINICAL DATA TO CALCULATE ESTIMATED GFR. CBC W/PLT COUNT & AUTO [id number] 05:22:00* Test Item Value Reference Range Comments WHITE BLOOD CELL COUNT (BEAKER) (test txgg=919) 11.1 K/ L 4.0-10.0 RED BLOOD CELL COUNT (BEAKER) (test zqzy=093) 3.82 M/ L 4.00-5.00 HEMOGLOBIN (BEAKER) (test ohet=280) 11.3 GM/DL 12.0-15.0 HEMATOCRIT (BEAKER) (test gqjr=395) 37.4 % 36.0-45.0 MEAN CORPUSCULAR VOLUME (BEAKER) (test gaio=235) 97.8 fL 82.0-99.0 MEAN CORPUSCULAR HEMOGLOBIN (BEAKER) (test dmpt=058) 29.7 pg 27.0-33.0 MEAN CORPUSCULAR HEMOGLOBIN CONC (BEAKER) (test blnc=380) 30.4 GM/DL 32.0-36.0 RED CELL DISTRIBUTION WIDTH (BEAKER) (test ipkj=274) 18.0 % 10.3-14.2 PLATELET COUNT (BEAKER) (test tksd=589) 288 K/CU MM 150-430 MEAN PLATELET VOLUME (BEAKER) (test oqho=487) 6.8 fL 6.5-10.5 NUCLEATED RED BLOOD CELLS (BEAKER) (test qhzn=964) 0 /100 WBC 0-0 NEUTROPHILS RELATIVE PERCENT (BEAKER) (test neew=661) 84 % LYMPHOCYTES RELATIVE PERCENT (BEAKER) (test mnot=703) 11 % MONOCYTES RELATIVE PERCENT (BEAKER) (test hdvr=086) 5 % EOSINOPHILS RELATIVE PERCENT (BEAKER) (test tgkn=389) 0 % BASOPHILS RELATIVE PERCENT (BEAKER) (test gukh=993) 0 % NEUTROPHILS ABSOLUTE COUNT (BEAKER) (test iita=512) 9.27 K/ L 1.80-8.00 LYMPHOCYTES ABSOLUTE COUNT (BEAKER) (test kluu=479) 1.21 K/ L 1.48-4.50 MONOCYTES ABSOLUTE COUNT (BEAKER) (test achq=599) 0.59 K/ L 0.00-1.30 EOSINOPHILS ABSOLUTE COUNT (BEAKER) (test ghey=103) 0.03 K/ L 0.00-0.50 BASOPHILS ABSOLUTE COUNT (BEAKER) (test hxgv=662) 0.01 K/ L 0.00-0.20 0.00LACTIC ACID, VENOUS, WHOLE [id number] 04:44:00* Test Item Value Reference Range Comments LACTATE BLOOD VENOUS (2) (BEAKER) (test qgls=9752) 1.0 mmol/L 0.5-2.2 Effective 02/23/2016: Units/Reference Range ChangeNew: 0.5-2.2 mmol/L Previous: 5 -20 mg/dLCBC W/PLT COUNT & AUTO [id number] 15:27:00* Test Item Value Reference Range Comments WHITE BLOOD CELL COUNT (BEAKER) (test olfs=991) 4.4 K/ L 4.0-10.0 RED BLOOD CELL COUNT (BEAKER) (test oecj=210) 4.59 M/ L 4.00-5.00 HEMOGLOBIN (BEAKER) (test gwhj=693) 13.7 GM/DL 12.0-15.0 HEMATOCRIT (BEAKER) (test ibcq=786) 45.1 % 36.0-45.0 MEAN CORPUSCULAR VOLUME (BEAKER) (test vjsx=318) 98.1 fL 82.0-99.0 MEAN CORPUSCULAR HEMOGLOBIN (BEAKER) (test niti=098) 29.9 pg 27.0-33.0 MEAN CORPUSCULAR HEMOGLOBIN CONC (BEAKER) (test lvns=454) 30.4 GM/DL 32.0-36.0 RED CELL DISTRIBUTION WIDTH (BEAKER) (test slhk=518) 18.5 % 10.3-14.2 PLATELET COUNT (BEAKER) (test xahb=936) 302 K/CU MM 150-430 MEAN PLATELET VOLUME (BEAKER) (test subb=823) 7.1 fL 6.5-10.5 NUCLEATED RED BLOOD CELLS (BEAKER) (test dygi=096) 3 /100 WBC 0-0 NEUTROPHILS RELATIVE PERCENT (BEAKER) (test jujc=483) 77 % LYMPHOCYTES RELATIVE PERCENT (BEAKER) (test wjih=799) 14 % MONOCYTES RELATIVE PERCENT (BEAKER) (test ngar=607) 7 % EOSINOPHILS RELATIVE PERCENT (BEAKER) (test guqw=910) 2 % BASOPHILS RELATIVE PERCENT (BEAKER) (test vbbh=292) 1 % NEUTROPHILS ABSOLUTE COUNT (BEAKER) (test ckoc=612) 3.42 K/ L 1.80-8.00 LYMPHOCYTES ABSOLUTE COUNT (BEAKER) (test dihl=089) 0.60 K/ L 1.48-4.50 MONOCYTES ABSOLUTE COUNT (BEAKER) (test hcdr=368) 0.32 K/ L 0.00-1.30 EOSINOPHILS ABSOLUTE COUNT (BEAKER) (test fgrx=858) 0.07 K/ L 0.00-0.50 BASOPHILS ABSOLUTE COUNT (BEAKER) (test zhnz=100) 0.03 K/ L 0.00-0.20 BASIC METABOLIC [id number] 07:43:00* Test Item Value Reference Range Comments SODIUM (BEAKER) (test qhgy=533) 133 meq/L 136-145 POTASSIUM (BEAKER) (test awhn=455) 3.9 meq/L 3.5-5.1 Specimen slightly hemolyzed CHLORIDE (BEAKER) (test xufg=362) 99 meq/L 98-107 CO2 (BEAKER) (test xncx=176) 21 meq/L 22-29 BLOOD UREA NITROGEN (BEAKER) (test fvlq=389) 6 mg/dL 7-21 CREATININE (BEAKER) (test ftvl=711) 0.76 mg/dL 0.57-1.25 Specimen slightly hemolyzed GLUCOSE RANDOM (BEAKER) (test sbrr=484) 110 mg/dL 70-105 CALCIUM (BEAKER) (test xeji=581) 8.7 mg/dL 8.4-10.2 EGFR (BEAKER) (test addz=7347) mL/min/1.73 sq m INSUFFICIENT CLINICAL DATA TO CALCULATE ESTIMATED GFR. SCREEN, [id number] 00:53:00* Test Item Value Reference Range Comments TEST URINE (BEAKER) (test kmxn=609) Negative COMPREHENSIVE METABOLIC [id number] 20:09:00* Test Item Value Reference Range Comments TOTAL PROTEIN (BEAKER) (test npbo=259) 6.7 gm/dL 6.0-8.3 ALBUMIN (BEAKER) (test qlqm=8070) 3.6 g/dL 3.5-5.0 ALKALINE PHOSPHATASE (BEAKER) (test hfdf=714) 89 U/L 40-150 BILIRUBIN TOTAL (BEAKER) (test rtld=596) 0.3 mg/dL 0.2-1.2 SODIUM (BEAKER) (test yiod=951) 134 meq/L 136-145 POTASSIUM (BEAKER) (test iycs=156) 3.5 meq/L 3.5-5.1 CHLORIDE (BEAKER) (test dibu=117) 100 meq/L 98-107 CO2 (BEAKER) (test ykkb=290) 21 meq/L 22-29 BLOOD UREA NITROGEN (BEAKER) (test ptqm=753) 8 mg/dL 7-21 CREATININE (BEAKER) (test nbjr=622) 0.83 mg/dL 0.57-1.25 GLUCOSE RANDOM (BEAKER) (test ytqh=582) 132 mg/dL 70-105 CALCIUM (BEAKER) (test mxlg=855) 8.9 mg/dL 8.4-10.2 AST (SGOT) (BEAKER) (test kmpm=206) 15 U/L 5-34 ALT (SGPT) (BEAKER) (test huiv=004) 40 U/L 6-55 EGFR (BEAKER) (test advu=9401) mL/min/1.73 sq m INSUFFICIENT CLINICAL DATA TO CALCULATE ESTIMATED GFR. CBC W/PLT COUNT & AUTO [id number] 19:45:00* Test Item Value Reference Range Comments WHITE BLOOD CELL COUNT (BEAKER) (test jzam=177) 13.0 K/ L 4.0-10.0 RED BLOOD CELL COUNT (BEAKER) (test mlkl=141) 4.16 M/ L 4.00-5.00 HEMOGLOBIN (BEAKER) (test kpmx=964) 13.0 GM/DL 12.0-15.0 HEMATOCRIT (BEAKER) (test zzio=666) 40.5 % 36.0-45.0 MEAN CORPUSCULAR VOLUME (BEAKER) (test vhlo=365) 97.4 fL 82.0-99.0 MEAN CORPUSCULAR HEMOGLOBIN (BEAKER) (test rymc=045) 31.3 pg 27.0-33.0 MEAN CORPUSCULAR HEMOGLOBIN CONC (BEAKER) (test ybta=352) 32.1 GM/DL 32.0-36.0 RED CELL DISTRIBUTION WIDTH (BEAKER) (test uvqf=393) 17.4 % 10.3-14.2 PLATELET COUNT (BEAKER) (test rjru=678) 329 K/CU MM 150-430 MEAN PLATELET VOLUME (BEAKER) (test gloo=362) 6.4 fL 6.5-10.5 NUCLEATED RED BLOOD CELLS (BEAKER) (test lpnq=182) 0 /100 WBC 0-0 NEUTROPHILS RELATIVE PERCENT (BEAKER) (test ijgm=467) 76 % LYMPHOCYTES RELATIVE PERCENT (BEAKER) (test jzpb=936) 17 % MONOCYTES RELATIVE PERCENT (BEAKER) (test blbv=289) 6 % EOSINOPHILS RELATIVE PERCENT (BEAKER) (test qttu=801) 1 % BASOPHILS RELATIVE PERCENT (BEAKER) (test zfon=518) 0 % NEUTROPHILS ABSOLUTE COUNT (BEAKER) (test vyoj=044) 9.91 K/ L 1.80-8.00 LYMPHOCYTES ABSOLUTE COUNT (BEAKER) (test sgcx=286) 2.14 K/ L 1.48-4.50 MONOCYTES ABSOLUTE COUNT (BEAKER) (test pdlp=828) 0.81 K/ L 0.00-1.30 EOSINOPHILS ABSOLUTE COUNT (BEAKER) (test cxmv=984) 0.10 K/ L 0.00-0.50 BASOPHILS ABSOLUTE COUNT (BEAKER) (test vufv=510) 0.06 K/ L 0.00-0.20 0.00POCT-LACTIC ACID, [id number] 19:37:00* Test Item Value Reference Range Comments POC-LACTIC ACID, VENOUS (BEAKER) (test qjnv=5022) 1.9 mmol/L 0.9-1.7 TESTED [address] [address] POCT-GLUCOSE [id number] 19:36:00* Test Item Value Reference Range Comments POC-GLUCOSE METER (BEAKER) (test vxwo=3393) 127 mg/dL 70-110 TESTED AT [address] [address] BASIC METABOLIC [id number] 05:56:00* Test Item Value Reference Range Comments SODIUM (BEAKER) (test glvz=514) 142 meq/L 136-145 POTASSIUM (BEAKER) (test ubxu=421) 4.1 meq/L 3.5-5.1 CHLORIDE (BEAKER) (test yrjz=548) 106 meq/L 98-107 CO2 (BEAKER) (test ajnu=245) 26 meq/L 22-29 BLOOD UREA NITROGEN (BEAKER) (test pduz=991) 8 mg/dL 7-21 CREATININE (BEAKER) (test nkex=419) 0.75 mg/dL 0.57-1.25 GLUCOSE RANDOM (BEAKER) (test hkjf=196) 212 mg/dL 70-105 CALCIUM (BEAKER) (test psmz=747) 9.0 mg/dL 8.4-10.2 EGFR (BEAKER) (test lyer=1149) mL/min/1.73 sq m INSUFFICIENT CLINICAL DATA TO CALCULATE ESTIMATED GFR. BASIC METABOLIC [id number] 06:56:00* Test Item Value Reference Range Comments SODIUM (BEAKER) (test bxkd=836) 141 meq/L 136-145 POTASSIUM (BEAKER) (test ifyr=746) 3.8 meq/L 3.5-5.1 CHLORIDE (BEAKER) (test xigq=538) 104 meq/L 98-107 CO2 (BEAKER) (test sdrr=456) 23 meq/L 22-29 BLOOD UREA NITROGEN (BEAKER) (test pacb=843) 7 mg/dL 7-21 CREATININE (BEAKER) (test bjxo=584) 0.68 mg/dL 0.57-1.25 GLUCOSE RANDOM (BEAKER) (test wvwp=410) 153 mg/dL 70-105 CALCIUM (BEAKER) (test jrea=207) 8.8 mg/dL 8.4-10.2 EGFR (BEAKER) (test geia=4428) mL/min/1.73 sq m INSUFFICIENT CLINICAL DATA TO CALCULATE ESTIMATED GFR. CBC (HEMOGRAM ONLY)2017-01-22 07:53:00* Test Item Value Reference Range Comments WHITE BLOOD CELL COUNT (BEAKER) (test myni=009) 23.0 K/ L 4.0-10.0 RED BLOOD CELL COUNT (BEAKER) (test ogkc=514) 3.44 M/ L 4.00-5.00 HEMOGLOBIN (BEAKER) (test qtys=057) 9.7 GM/DL 12.0-15.0 HEMATOCRIT (BEAKER) (test uosh=791) 32.9 % 36.0-45.0 MEAN CORPUSCULAR VOLUME (BEAKER) (test xcxv=627) 95.6 fL 82.0-99.0 MEAN CORPUSCULAR HEMOGLOBIN (BEAKER) (test ljzu=090) 28.1 pg 27.0-33.0 MEAN CORPUSCULAR HEMOGLOBIN CONC (BEAKER) (test wnmm=669) 29.4 GM/DL 32.0-36.0 RED CELL DISTRIBUTION WIDTH (BEAKER) (test cpkd=919) 16.3 % 10.3-14.2 PLATELET COUNT (BEAKER) (test zycz=597) 600 K/CU MM 150-430 MEAN PLATELET VOLUME (BEAKER) (test zdvx=430) 6.1 fL 6.5-10.5 NUCLEATED RED BLOOD CELLS (BEAKER) (test rpzd=640) 0 /100 WBC 0-0 0.00BASIC METABOLIC [id number] 07:29:00* Test Item Value Reference Range Comments SODIUM (BEAKER) (test borh=190) 143 meq/L 136-145 POTASSIUM (BEAKER) (test xmzv=460) 3.9 meq/L 3.5-5.1 CHLORIDE (BEAKER) (test tjkg=740) 107 meq/L 98-107 CO2 (BEAKER) (test ghwp=177) 25 meq/L 22-29 BLOOD UREA NITROGEN (BEAKER) (test uujm=824) 6 mg/dL 7-21 CREATININE (BEAKER) (test kisg=545) 0.64 mg/dL 0.57-1.25 GLUCOSE RANDOM (BEAKER) (test cnen=419) 128 mg/dL 70-105 CALCIUM (BEAKER) (test unlj=655) 9.2 mg/dL 8.4-10.2 EGFR (BEAKER) (test hysn=9878) mL/min/1.73 sq m INSUFFICIENT CLINICAL DATA TO CALCULATE ESTIMATED GFR. URINE [id number] 11:43:00* Test Item Value Reference Range Comments CULTURE (BEAKER) (test voqo=7778) No growth CBC (HEMOGRAM ONLY)2017-01-21 06:12:00* Test Item Value Reference Range Comments WHITE BLOOD CELL COUNT (BEAKER) (test iexf=457) 24.3 K/ L 4.0-10.0 RED BLOOD CELL COUNT (BEAKER) (test ybpb=642) 3.44 M/ L 4.00-5.00 HEMOGLOBIN (BEAKER) (test ioha=292) 9.9 GM/DL 12.0-15.0 HEMATOCRIT (BEAKER) (test pzip=362) 33.2 % 36.0-45.0 MEAN CORPUSCULAR VOLUME (BEAKER) (test iclt=497) 96.6 fL 82.0-99.0 MEAN CORPUSCULAR HEMOGLOBIN (BEAKER) (test wmmi=395) 28.7 pg 27.0-33.0 MEAN CORPUSCULAR HEMOGLOBIN CONC (BEAKER) (test fszi=505) 29.7 GM/DL 32.0-36.0 RED CELL DISTRIBUTION WIDTH (BEAKER) (test mwxh=181) 16.0 % 10.3-14.2 PLATELET COUNT (BEAKER) (test rlda=104) 571 K/CU MM 150-430 MEAN PLATELET VOLUME (BEAKER) (test vngj=351) 6.0 fL 6.5-10.5 NUCLEATED RED BLOOD CELLS (BEAKER) (test wqjd=397) 0 /100 WBC 0-0 0.00BASIC METABOLIC [id number] 07:23:00* Test Item Value Reference Range Comments SODIUM (BEAKER) (test jezn=058) 143 meq/L 136-145 POTASSIUM (BEAKER) (test yypc=506) 3.9 meq/L 3.5-5.1 CHLORIDE (BEAKER) (test enpl=218) 107 meq/L 98-107 CO2 (BEAKER) (test nssh=106) 26 meq/L 22-29 BLOOD UREA NITROGEN (BEAKER) (test sfdy=946) 4 mg/dL 7-21 CREATININE (BEAKER) (test phtg=078) 0.64 mg/dL 0.57-1.25 GLUCOSE RANDOM (BEAKER) (test otwv=302) 81 mg/dL 70-105 CALCIUM (BEAKER) (test oxap=402) 8.7 mg/dL 8.4-10.2 EGFR (BEAKER) (test bngi=9097) mL/min/1.73 sq m INSUFFICIENT CLINICAL DATA TO CALCULATE ESTIMATED GFR. URINALYSIS W/ [id number] 14:01:00* Test Item Value Reference Range Comments COLOR (BEAKER) (test gpjt=812) Yellow CLARITY (BEAKER) (test cydr=518) Clear SPECIFIC GRAVITY UA (BEAKER) (test ltbi=524) 1.006 1.001-1.035 PH UA (BEAKER) (test nvjq=347) 7.5 5.0-8.0 PROTEIN UA (BEAKER) (test kovc=057) Negative Negative GLUCOSE UA (BEAKER) (test oatj=959) Negative Negative KETONES UA (BEAKER) (test wyuj=900) Negative Negative BILIRUBIN UA (BEAKER) (test fuao=015) Negative Negative BLOOD UA (BEAKER) (test pspl=129) Negative Negative NITRITE UA (BEAKER) (test qqit=803) Negative Negative LEUKOCYTE ESTERASE UA (BEAKER) (test csur=602) Negative Negative UROBILINOGEN UA (BEAKER) (test raex=139) 0.2 mg/dL 0.2-1.0 RBC UA (BEAKER) (test hlhh=110) 0 /HPF WBC UA (BEAKER) (test uatq=465) 2 /HPF SQUAMOUS EPITHELIAL (BEAKER) (test uobl=770) 1 /HPF SOURCE(BEAKER) (test hini=3233) Urine, Voided BASIC METABOLIC [id number] 07:55:00* Test Item Value Reference Range Comments SODIUM (BEAKER) (test viop=851) 141 meq/L 136-145 POTASSIUM (BEAKER) (test doyq=819) 3.5 meq/L 3.5-5.1 CHLORIDE (BEAKER) (test pdam=670) 105 meq/L 98-107 CO2 (BEAKER) (test pzqj=829) 26 meq/L 22-29 BLOOD UREA NITROGEN (BEAKER) (test ulva=007) 3 mg/dL 7-21 CREATININE (BEAKER) (test eqlr=610) 0.64 mg/dL 0.57-1.25 GLUCOSE RANDOM (BEAKER) (test zvpt=445) 102 mg/dL 70-105 CALCIUM (BEAKER) (test iuyl=515) 8.6 mg/dL 8.4-10.2 EGFR (BEAKER) (test gjiw=9872) mL/min/1.73 sq m INSUFFICIENT CLINICAL DATA TO CALCULATE ESTIMATED GFR. CBC (HEMOGRAM ONLY)2017-01-19 07:41:00* Test Item Value Reference Range Comments WHITE BLOOD CELL COUNT (BEAKER) (test rmcv=666) 25.3 K/ L 4.0-10.0 RED BLOOD CELL COUNT (BEAKER) (test igjn=862) 3.15 M/ L 4.00-5.00 HEMOGLOBIN (BEAKER) (test orvn=236) 9.4 GM/DL 12.0-15.0 HEMATOCRIT (BEAKER) (test eytm=944) 29.7 % 36.0-45.0 MEAN CORPUSCULAR VOLUME (BEAKER) (test efxu=554) 94.4 fL 82.0-99.0 MEAN CORPUSCULAR HEMOGLOBIN (BEAKER) (test hmdz=558) 29.7 pg 27.0-33.0 MEAN CORPUSCULAR HEMOGLOBIN CONC (BEAKER) (test wvag=946) 31.5 GM/DL 32.0-36.0 RED CELL DISTRIBUTION WIDTH (BEAKER) (test dzem=482) 15.4 % 10.3-14.2 PLATELET COUNT (BEAKER) (test vhiy=782) 494 K/CU MM 150-430 MEAN PLATELET VOLUME (BEAKER) (test eliv=026) 6.1 fL 6.5-10.5 NUCLEATED RED BLOOD CELLS (BEAKER) (test ouup=454) 0 /100 WBC 0-0 0.000.610.000.000.000.00BLOOD [id number] 00:00:00* Test Item Value Reference Range Comments CULTURE (BEAKER) (test wtlv=5084) No growth in 5 days BLOOD [id number] 00:00:00* Test Item Value Reference Range Comments CULTURE (BEAKER) (test vybo=2674) No growth in 5 days TISSUE [id number] 14:37:00Surgical Pathology Report Case: [id number] Authorizing Provider: Grayson Pro Ordering Provider: Bill Pro MD Fernando, MD Ordering Location: [address] Collected: 01/16/2017 1114 Service Pathologist: Macario Jimenez MD Re ceived: 01/16/2017 1608 Specimens: A) - Large Intestine, Colon - Rectosigmoid, BX , CMV CULTURE B) - Biopsy, Terminal Ileum, BX COLITIS C) - Large Intestine, Colon - Right/Ascending, BX COLITIS D) - Large Intestine, Colon - Left/Descending, BX COLITIS A. RECTOSIGMOID, BIOPSIE S- CHRONIC ACTIVE COLITIS- NEGATIVE FOR DYSPLASIA OR CARCINOMA- NO DEFINITIVE RAL INCLUSIONS SEEN- CMV IMMUNOSTAIN, NEGATIVE FOR VIRAL INCLUSIONSB. TERMINAL I LEUM, ENDOSCOPIC MUCOSAL BIOPSIES- ILEAL MUCOSA WITH NO SIGNIFICANT DIAGNOSTIC A LTERATIONSC. COLON, RIGHT/ASCENDING, BIOPSIES- CHRONIC ACTIVE COLITIS- NEGATIVE FOR DYSPLASIA OR CARCINOMA- NO DEFINITIVE VIRAL INCLUSIONS SEEN- CMV IMMUNOSTAIN , NEGATIVE FOR VIRAL INCLUSIONSD. COLON, RIGHT/ASCENDING, BIOPSIES- CHRONIC ACTI VE COLITIS WITH ULCERATION- NEGATIVE FOR DYSPLASIA OR CARCINOMA- NO DEFINITIVE V IRAL INCLUSIONS SEEN- CMV IMMUNOSTAIN, NEGATIVE FOR VIRAL INCLUSIONS Signing Pat hologist Direct Phone Line: [phone] [id number], colit is, CMV cultureA. Rectosigmoid colon biopsy; B. Terminal ileum biopsy; C. Right/ ascending colon biopsy; D. Left/descending colon biopsySpecimen A: Received in f ormalin labeled "large intestine, colon rectosigmoid" are five fragments measuri ng 0.8 x 0.6 x 0.1 cm in aggregate. Entirely submitted A1. Specimen B: Received in formalin labeled "biopsy, terminal ileum" is a single fragment measuring 0.3 cm in greatest dimension. Entirely submitted B1. Specimen C: Received in formali n labeled "large intestine, colon right/ascending" are four fragments measuring 0.7 x 0.6 x 0.1 cm in aggregate. Entirely submitted C1. Specimen D: Received in formalin labeled "large intestine, colon left/descending" is a single fragment m easuring 0.2 cm in greatest dimension. Entirely submitted D1. DB/Shira-D. Microsco pic examination is performed and the findings are incorporated in the diagnostic line.The following special studies were performed on this case and the interpre tation is incorporated in the diagnostic report above:The immunohistochemistry t est was developed and its performance characteristics determined by [facility], Pathology Laboratory. It has not been cleared or approved by t U.S. Food and Drug Administration. The FDA has determined that such clearance or approval is not necessary. The test is used for clinical purposes. It should not be regarded as investigational or for research. This laboratory is certified under the Clinical Laboratory Improvement Amendments of 1988 (CLIA-88) as qual ified to perform high complexity clinical laboratory testing.BASIC METABOLIC [id number] 09:22:00* Test Item Value Reference Range Comments SODIUM (BEAKER) (test fvoq=285) 142 meq/L 136-145 POTASSIUM (BEAKER) (test nqmt=528) 3.1 meq/L 3.5-5.1 CHLORIDE (BEAKER) (test xttx=781) 107 meq/L 98-107 CO2 (BEAKER) (test fnyy=881) 27 meq/L 22-29 BLOOD UREA NITROGEN (BEAKER) (test qbnp=855) 3 mg/dL 7-21 CREATININE (BEAKER) (test zfpe=961) 0.65 mg/dL 0.57-1.25 GLUCOSE RANDOM (BEAKER) (test mlvg=288) 102 mg/dL 70-105 CALCIUM (BEAKER) (test swvb=713) 8.4 mg/dL 8.4-10.2 EGFR (BEAKER) (test ytgu=7843) mL/min/1.73 sq m INSUFFICIENT CLINICAL DATA TO CALCULATE ESTIMATED GFR. [id number] 07:50:00* Test Item Value Reference Range Comments FERRITIN (BEAKER) (test wact=619) 48 ng/mL 5-275 Effective 09/08/2014: Reference Range ChangeNew: Male 5-275 Previous: Male 22-322 Female 5-275 Female 10-291 IRON, TIBC, % SAT. (WITHOUT FERRITIN)2017-01-18 07:30:00* Test Item Value Reference Range Comments IRON (BEAKER) (test uwda=305) 28 ug/dL 40-160 TOTAL IRON BINDING CAPACITY (BEAKER) (test ayrw=104) 179 ug/dL 250-450 IRON % SATURATION (2) (BEAKER) (test bswi=3855) 16 % 20-55 CMV PCR, [id number] 13:29:00* Test Item Value Reference Range Comments CMV VIRAL LOAD - NEGATIVE (BEAKER) (test qgoc=2262) Negative or below the linear range of the assay (<375 copies/mL) Cytomegalovirus (CMV) infection can cause significant disease in immunosuppresse d patients. However, it is common for CMV to manifest as a limited infection whi ch is of no clinical significance in immunosuppressed patients or in healthy ind ividuals.Viral load measurements are helpful to identify clinical CMV infection and to guide the pre-emptive management of antiviral therapy. For treatment of CMV infection due to reactivation in transplant recipients, a threshold between 4,000 and 5,000 copies/mL is suggested. For treatment of primary CMV infection, a lower threshold can be used.CMV infection may also be monitored using weekly serial measurements. Serial measurements of CMV DNA viral load can be evaluated by identifying a 10-fold change, as well as assessing the CMV DNA viral load and the clinical context for each patient.The plasma CMV DNA viral load was detected using quantitative polymerase chain reaction and fluorescent monitoring of a s pecific hybridized probe. Genetic variation and other factors can affect the acc uracy of nucleic acid testing. Therefore, the results should be interpreted in l ight of clinical data. A negative result may not exclude the presence of CMV dis ease.This test was developed and its performance characteristics determined by malissa delgado [facility] Pathology Department, Section of Molecular Patholog y. It has not been cleared or approved by the U.S. Food and Drug Administration (FDA), since FDA approval is not required for clinical use of the test. Validati on was done as required by The Clinical Laboratory Improvement Amendments of 198 8.CBC W/PLT COUNT & AUTO [id number] 10:44:00* Test Item Value Reference Range Comments WHITE BLOOD CELL COUNT (BEAKER) (test qxpd=270) 13.6 K/ L 4.0-10.0 RED BLOOD CELL COUNT (BEAKER) (test sxso=617) 3.13 M/ L 4.00-5.00 HEMOGLOBIN (BEAKER) (test qltk=176) 9.1 GM/DL 12.0-15.0 HEMATOCRIT (BEAKER) (test uefw=233) 29.2 % 36.0-45.0 MEAN CORPUSCULAR VOLUME (BEAKER) (test hewe=739) 93.5 fL 82.0-99.0 MEAN CORPUSCULAR HEMOGLOBIN (BEAKER) (test iymt=020) 29.1 pg 27.0-33.0 MEAN CORPUSCULAR HEMOGLOBIN CONC (BEAKER) (test exfi=230) 31.1 GM/DL 32.0-36.0 RED CELL DISTRIBUTION WIDTH (BEAKER) (test imia=588) 14.9 % 10.3-14.2 PLATELET COUNT (BEAKER) (test cyoz=229) 477 K/CU MM 150-430 MEAN PLATELET VOLUME (BEAKER) (test mdvf=357) 6.0 fL 6.5-10.5 NUCLEATED RED BLOOD CELLS (BEAKER) (test qnaw=336) 0 /100 WBC 0-0 NEUTROPHILS RELATIVE PERCENT (BEAKER) (test gfeb=937) 74 % LYMPHOCYTES RELATIVE PERCENT (BEAKER) (test neqy=326) 19 % MONOCYTES RELATIVE PERCENT (BEAKER) (test ohcl=674) 6 % EOSINOPHILS RELATIVE PERCENT (BEAKER) (test djbc=785) 1 % BASOPHILS RELATIVE PERCENT (BEAKER) (test ppku=416) 0 % NEUTROPHILS ABSOLUTE COUNT (BEAKER) (test klgw=000) 10.10 K/ L 1.80-8.00 LYMPHOCYTES ABSOLUTE COUNT (BEAKER) (test qevc=161) 2.62 K/ L 1.48-4.50 MONOCYTES ABSOLUTE COUNT (BEAKER) (test gvgw=236) 0.82 K/ L 0.00-1.30 EOSINOPHILS ABSOLUTE COUNT (BEAKER) (test rfgk=592) 0.08 K/ L 0.00-0.50 BASOPHILS ABSOLUTE COUNT (BEAKER) (test hfie=967) 0.01 K/ L 0.00-0.20 0.000.620.000.000.000.00(MANUAL DIFFERENTIAL)2017-01-17 10:44:00* Test Item Value Reference Range Comments TOTAL COUNTED (BEAKER) (test kfmj=1834) HEPATITIS B SURFACE [id number] 10:28:00* Test Item Value Reference Range Comments HEPATITIS B SURFACE ANTIBODY (BEAKER) (test jjfi=940) < mIU/mL <8.0 HEPATITIS B SURFACE [id number] 10:23:00* Test Item Value Reference Range Comments HEPATITIS B SURFACE ANTIGEN (2) (BEAKER) (test ffzg=7189) Nonreactive Nonreactive HEPATITIS B CORE ANTIBODY, [id number] 10:23:00* Test Item Value Reference Range Comments HEPATITIS B CORE TOTAL ANTIBODY (BEAKER) (test gbvt=280) Nonreactive Nonreactive WOUND CULTURE + GRAM [id number] 10:06:00* Test Item Value Reference Range Comments CULTURE (BEAKER) (test wtrb=4515) COAGULASE NEGATIVE STAPHYLOCOCCUS <1+ Coagulase negative Staphylococcus Clindamycin (test code=10) Erythromycin (test code=4) Levofloxacin (test code=22) Linezolid (test code=40) Oxacillin (test code=14) Rifampin (test code=43) Tetracycline (test code=2) Trimethoprim + Sulfamethoxazole (test code=47) Vancomycin (test code=13) GRAM STAIN RESULT (BEAKER) (test vatm=4649) No WBCs GRAM STAIN RESULT (BEAKER) (test hmax=898201) No organisms seen COMPREHENSIVE METABOLIC [id number] 07:28:00* Test Item Value Reference Range Comments TOTAL PROTEIN (BEAKER) (test vnfj=685) 5.3 gm/dL 6.0-8.3 ALBUMIN (BEAKER) (test wyuh=1959) 2.6 g/dL 3.5-5.0 ALKALINE PHOSPHATASE (BEAKER) (test lghh=802) 64 U/L 40-150 BILIRUBIN TOTAL (BEAKER) (test ghat=903) 0.1 mg/dL 0.2-1.2 SODIUM (BEAKER) (test kmow=272) 143 meq/L 136-145 POTASSIUM (BEAKER) (test ckhw=587) 3.1 meq/L 3.5-5.1 CHLORIDE (BEAKER) (test kldb=733) 108 meq/L 98-107 CO2 (BEAKER) (test tisg=885) 25 meq/L 22-29 BLOOD UREA NITROGEN (BEAKER) (test tybs=610) 6 mg/dL 7-21 CREATININE (BEAKER) (test uiqk=566) 0.66 mg/dL 0.57-1.25 GLUCOSE RANDOM (BEAKER) (test zyue=593) 124 mg/dL 70-105 CALCIUM (BEAKER) (test tqym=816) 8.2 mg/dL 8.4-10.2 AST (SGOT) (BEAKER) (test zqzn=622) 8 U/L 5-34 ALT (SGPT) (BEAKER) (test yujj=626) 10 U/L 6-55 EGFR (BEAKER) (test iyqt=9862) mL/min/1.73 sq m INSUFFICIENT CLINICAL DATA TO CALCULATE ESTIMATED GFR. VANCOMYCIN LEVEL, [id number] 23:37:00* Test Item Value Reference Range Comments VANCOMYCIN TROUGH (BEAKER) (test oaal=717) 9.4 ug/mL 10.0-20.0 CBC W/PLT COUNT & AUTO [id number] 08:43:00* Test Item Value Reference Range Comments WHITE BLOOD CELL COUNT (BEAKER) (test fpmi=500) 11.4 K/ L 4.0-10.0 RED BLOOD CELL COUNT (BEAKER) (test qfai=287) 3.10 M/ L 4.00-5.00 HEMOGLOBIN (BEAKER) (test tffj=302) 9.1 GM/DL 12.0-15.0 HEMATOCRIT (BEAKER) (test sucv=494) 29.0 % 36.0-45.0 MEAN CORPUSCULAR VOLUME (BEAKER) (test yazt=951) 93.4 fL 82.0-99.0 MEAN CORPUSCULAR HEMOGLOBIN (BEAKER) (test rsjz=682) 29.3 pg 27.0-33.0 MEAN CORPUSCULAR HEMOGLOBIN CONC (BEAKER) (test yqey=729) 31.3 GM/DL 32.0-36.0 RED CELL DISTRIBUTION WIDTH (BEAKER) (test gnlx=584) 14.6 % 10.3-14.2 PLATELET COUNT (BEAKER) (test twjj=860) 456 K/CU MM 150-430 MEAN PLATELET VOLUME (BEAKER) (test urew=670) 6.0 fL 6.5-10.5 NUCLEATED RED BLOOD CELLS (BEAKER) (test qtak=376) 0 /100 WBC 0-0 NEUTROPHILS RELATIVE PERCENT (BEAKER) (test auvp=070) 83 % LYMPHOCYTES RELATIVE PERCENT (BEAKER) (test polm=635) 13 % MONOCYTES RELATIVE PERCENT (BEAKER) (test ekxw=294) 4 % EOSINOPHILS RELATIVE PERCENT (BEAKER) (test psnl=283) 0 % BASOPHILS RELATIVE PERCENT (BEAKER) (test vacq=723) 0 % NEUTROPHILS ABSOLUTE COUNT (BEAKER) (test ijbm=610) 9.40 K/ L 1.80-8.00 LYMPHOCYTES ABSOLUTE COUNT (BEAKER) (test cveh=129) 1.48 K/ L 1.48-4.50 MONOCYTES ABSOLUTE COUNT (BEAKER) (test hfnv=012) 0.48 K/ L 0.00-1.30 EOSINOPHILS ABSOLUTE COUNT (BEAKER) (test jled=404) 0.04 K/ L 0.00-0.50 BASOPHILS ABSOLUTE COUNT (BEAKER) (test edsl=430) 0.00 K/ L 0.00-0.20 0.00COMPREHENSIVE METABOLIC [id number] 07:35:00* Test Item Value Reference Range Comments TOTAL PROTEIN (BEAKER) (test pelj=362) 5.2 gm/dL 6.0-8.3 ALBUMIN (BEAKER) (test nfmo=7226) 2.5 g/dL 3.5-5.0 ALKALINE PHOSPHATASE (BEAKER) (test ffle=883) 68 U/L 40-150 BILIRUBIN TOTAL (BEAKER) (test gskp=733) 0.1 mg/dL 0.2-1.2 SODIUM (BEAKER) (test bowv=538) 139 meq/L 136-145 POTASSIUM (BEAKER) (test jlfe=642) 3.5 meq/L 3.5-5.1 CHLORIDE (BEAKER) (test uajo=037) 106 meq/L 98-107 CO2 (BEAKER) (test dyxo=571) 23 meq/L 22-29 BLOOD UREA NITROGEN (BEAKER) (test ilin=352) 5 mg/dL 7-21 CREATININE (BEAKER) (test itdl=323) 0.67 mg/dL 0.57-1.25 GLUCOSE RANDOM (BEAKER) (test hevs=977) 120 mg/dL 70-105 CALCIUM (BEAKER) (test vkgw=167) 8.1 mg/dL 8.4-10.2 AST (SGOT) (BEAKER) (test sbhk=001) 10 U/L 5-34 ALT (SGPT) (BEAKER) (test arzj=157) 11 U/L 6-55 EGFR (BEAKER) (test gbwc=6968) mL/min/1.73 sq m INSUFFICIENT CLINICAL DATA TO CALCULATE ESTIMATED GFR. ANTI-NUCLEAR ANTIBODY (JENNI)2017-01-15 14:26:00* Test Item Value Reference Range Comments ANTI-NUCLEAR ANTIBODY (JENNI) (BEAKER) (test lfsg=536) Negative Negative CLOSTRIDIUM DIFFICILE TOXIN [id number] 11:42:00* Test Item Value Reference Range Comments CLOSTRIDIUM DIFFICILE TOXIN, PCR (BEAKER) (test vovr=7827) Not Detected Not Detected This qualitative real-time polymerase chain reaction assay detects the tcdB gene , encoded on the C.difficile pathogenicity locus (PaLoc). The product of tcdB, toxin B, is a cytotoxin essential for causing C.difficile-associated disease (CD AD) and is found in virtually all toxigenic C.difficile.This assay is performed for patients suspected of having either community-acquired or nosocomial CDAD. Accordingly, only symptomatic patients should be tested and formed stools will b e rejected unless ileus is present (i.e., specified when ordering). Patients ma y be colonized with toxigenic C.difficile strains not causing active disease; th erefore, clinical correlation is needed when deciding how to manage patients wit h a positive test result.The assay has not been validated as a test of cure as a mplifiable nucleic acid may persist after effective treatment; therefore, follow -up testing of a positive result is not recommended.RHEUMATOID FACTOR AB, REFLEX TO [id number] 09:51:00* Test Item Value Reference Range Comments RHEUMATOID FACTOR (BEAKER) (test zhjn=304) Negative HEPATITIS PANEL, [id number] 18:43:00* Test Item Value Reference Range Comments HEPATITIS A IGM ANTIBODY (BEAKER) (test fgiq=227) Nonreactive Nonreactive HEPATITIS B CORE IGM ANTIBODY (BEAKER) (test ckbt=009) Nonreactive Nonreactive HEPATITIS C ANTIBODY (BEAKER) (test ikze=808) Nonreactive Nonreactive HEPATITIS B SURFACE ANTIGEN (2) (BEAKER) (test irrf=3974) Nonreactive Nonreactive CBC W/PLT COUNT & AUTO [id number] 21:03:00* Test Item Value Reference Range Comments WHITE BLOOD CELL COUNT (BEAKER) (test hrwz=450) 20.9 K/ L 4.0-10.0 RED BLOOD CELL COUNT (BEAKER) (test zmrk=866) 3.64 M/ L 4.00-5.00 HEMOGLOBIN (BEAKER) (test iuck=578) 11.0 GM/DL 12.0-15.0 HEMATOCRIT (BEAKER) (test felu=862) 34.5 % 36.0-45.0 MEAN CORPUSCULAR VOLUME (BEAKER) (test uqgs=645) 94.8 fL 82.0-99.0 MEAN CORPUSCULAR HEMOGLOBIN (BEAKER) (test uryu=003) 30.1 pg 27.0-33.0 MEAN CORPUSCULAR HEMOGLOBIN CONC (BEAKER) (test nwjl=889) 31.8 GM/DL 32.0-36.0 RED CELL DISTRIBUTION WIDTH (BEAKER) (test mirr=810) 14.8 % 10.3-14.2 PLATELET COUNT (BEAKER) (test aems=896) 542 K/CU MM 150-430 MEAN PLATELET VOLUME (BEAKER) (test iyez=125) 5.7 fL 6.5-10.5 NUCLEATED RED BLOOD CELLS (BEAKER) (test fzbx=840) 0 /100 WBC 0-0 (MANUAL DIFFERENTIAL)2017-01-13 21:03:00* Test Item Value Reference Range Comments NEUTROPHILS - REL (DIFF) (BEAKER) (test wadi=0380) 79 % LYMPHOCYTES - REL (DIFF) (BEAKER) (test jmec=9482) 6 % MONOCYTES - REL (DIFF) (BEAKER) (test hxco=0934) 2 % METAMYELOCYTES-REL (DIFF) (BEAKER) (test gecl=395) 1 % 0-0 MYELOCYTES-REL (DIFF) (BEAKER) (test pcss=3034) 1 % 0-0 BANDS - REL (DIFF) (BEAKER) (test puhz=0965) 11 % 0-10 NEUTROPHILS - ABS (DIFF) (BEAKER) (test jxvk=7228) 16.51 K/ L 1.80-8.00 LYMPHOCYTES - ABS (DIFF) (BEAKER) (test laoi=8716) 1.25 K/ L 1.48-4.50 MONOCYTES - ABS (DIFF) (BEAKER) (test onts=0548) 0.42 K/ L 0.00-1.30 METAMYELOCTYES - ABS (DIFF) (BEAKER) (test zihw=617) 0.21 K/ L 0.00-0.00 BANDS-ABS (DIFF) (BEAKER) (test gzgw=9623) 2.3 K/ L 0.0-0.8 MYELOCYTES-ABS (DIFF) (BEAKER) (test bbyb=7704) 0.21 K/ L 0.00-0.00 TOTAL COUNTED (BEAKER) (test qble=5311) 100 BANDS + SEGMENTED NEUTROPHILS (BEAKER) (test vtrt=6543) 18.81 WBC MORPHOLOGY (BEAKER) (test bxar=811) Normal LARGE PLT(BEAKER) (test fnnh=0592) Present ANISOCYTOSIS (BEAKER) (test vjus=260) 1+ few BASIC METABOLIC [id number] 20:59:00* Test Item Value Reference Range Comments SODIUM (BEAKER) (test lyuo=390) 141 meq/L 136-145 POTASSIUM (BEAKER) (test gsns=359) 3.7 meq/L 3.5-5.1 CHLORIDE (BEAKER) (test zctq=862) 103 meq/L 98-107 CO2 (BEAKER) (test stre=735) 26 meq/L 22-29 BLOOD UREA NITROGEN (BEAKER) (test hlnt=200) 10 mg/dL 7-21 CREATININE (BEAKER) (test oofu=017) 0.81 mg/dL 0.57-1.25 GLUCOSE RANDOM (BEAKER) (test pddj=452) 120 mg/dL 70-105 CALCIUM (BEAKER) (test ward=947) 9.0 mg/dL 8.4-10.2 EGFR (BEAKER) (test hmvz=2549) mL/min/1.73 sq m INSUFFICIENT CLINICAL DATA TO CALCULATE ESTIMATED GFR. CT ABDOMEN/PELVIS WO [place] [address] Patient Name: TANYA SANDERSON MR #: [id number] : 1980 Age/Sex: 36/F Req #: [id number] Adm Physician: Ordered by: RIA MICHEL MD Report #: [id number] Location: ER Room/Bed: Procedure: [id number] CT/CT ABDOMEN/PELVIS WO Exam D ate: 08/19/17 Exam Time: 1750 REPORT STATUS: Si gned EXAMINATION: CT of the abdomen and pelvis without contrast. TECHNI QUE: Helical CT images of the abdomen and pelvis were performed from the lung bases to the lesser trochanters. No intravenous contrast was given. Positive enteric contrast.. Coronal and sagittal reformatted images were obtained. COMPARISON: None. CLINICAL HISTORY:Abdominal pain, colitis. DI SCUSSION: ABSENCE OF INTRAVENOUS CONTRAST DECREASES SENSITIVITY FOR DETECTION OF FOCAL LESIONS AND VASCULAR PATHOLOGY. ABDOMEN/PELVIS: LOWER THORAX: Unremarkable. HEPATOBILIARY:No focal hepatic lesions. No biliary ductal dilation. The gallbladder is normal. SPLEEN: No splenomegaly. PANCR EAS: Distal pancreatic atrophy. ADRENALS: No adrenal nodules. KIDNEYS/ URETERS: Punctate left renal calculi. PELVIC ORGANS/BLADDER: 7 cm fat-conta ining and calcium-containing right adnexal mass. PERITONEUM/RETROPERITONE UM: No free air or fluid. LYMPH NODES: No intra-abdominal,retroperitoneal, pelvic or inguinal lymphadenopathy. VESSELS: The celiac trunk,superior an d inferior mesenteric and bilateral renal arteries are patent The portal, lovelace perior mesenteric and splenic veins are patent. GI TRACT: Hiatal hernia. No distention or wall thickening. The appendix is normal. BONES AND SOFT TISSUES: No bony destructive lesions. No soft tissue abnormalities. IM PRESSION: No acute CT finding. 7 cm right adnexal dermoid/teratoma. Punctate left nonobstructing renal calculi. Signed by: Dr. Fareed Riojas ch, M.D. on 08/19/2017 6:35 PM Dictated By: FAREED CORTES MD [facility] Signed By: FAREED CORTES MD on 08/19/171834 Transcribed By: VARUN on 08/19/171834 COPY TO: RIA MICHEL MD [facility] (PORTABLE) [place] [address] Patient Name: TANYA SANDERSON MR #: [id number] : 1980 Age/Sex: 36/F Req #: [id number] Adm Physician: Ordered by: RIA MICHEL MD Report #: [id number] Location: ER Room/Bed: Procedure: [id number] DX/CHEST SINGLE (PORTABLE) Exa m Date: 08/19/17 Exam Time: 1520 REPORT STATUS: Signed Examination: Single AP view of the chest. COMPARISON: None. INDICATION: Seizure DISCUSSION: Lines/tubes: None. Lungs: The lungs are well inflated and clear. There is no evidence of pneumonia or p ulmonary edema. Pleura: There is no pleural effusion or pneumothorax. Heart and mediastinum: The heart and the mediastinum are unremarkable. Meet jocelyne and soft tissues: No acute bony abnormalities. IMPRESSION: 1. No acute cardiopulmonary abnormalities. Signed by: Johnnie Mendoza on 08/19/2017 3:30 PM Dictated By: FAREED CORTES MD 153 Transcribed By: VARUN on 1530 COPY TO: RIA MICHEL MD CT BRAIN WO [place] [address] Patient Name: TANYA SANDERSON MR #: [id number] : 1980 Age/Sex: 36/F Req #: [id number] Adm Physician: Ordered by: RIA MICHEL MD Report #: [id number] Location: ER Room/Bed: Procedure: [id number] CT/CT BRAIN WO Exam Date: 07/23 07/08 Exam Time: 1510 REPORT STATUS: Signed E XAMINATION: Head CT HISTORY: Seizure COMPARISON: None. TECHNIQUE: Mult idetector axial images were obtained without contrast from the foramen magnum to the vertex . The images were reconstructed using brain and bone algorithms. Thin section brain images were reformatted into coronal and sagittal planes. Intravenous contrast: None. Motion/streaking artifact limits the evaluation of the skull base and posterior cranial fossa. FINDINGS: Pare nchyma: 1. No abnormal densities. 2. No mass or hemorrhage. No CT evidenc e of acute territorial vascular insult. Extra-axial spaces:No a bnormal density. No extra-axial fluid collections Brain volume: Normal f or age. Ventricles: No hydrocephalus or displacement. Arteries: No density suggestive of thrombus. Dural sinuses: No abnormal density. Extra-axial spaces: No abnormal density. Foramen magnum: No mass, Chiari malformation, or basilar invagination. Sella: No obvious mass. Paranasal/mastoid sinuses: Imaged portions unremarkable. Skull/ Scalp: No lytic or blastic lesions. No fractures. IMPRESSION: Normal head CT. Signed by: Dr. Ashakn Gruber M.D. on 08/19/2017 3:44 PM Dic tated By: ASHKAN GRUBER MD 1 544 Transcribed By: VARUN on 08/19/17 6120 COPY TO: RIA MICHEL MD
[2019-08-18 12:40] LABS: BASOPHILS % 0.3 % (0.0-1.0); EOSINOPHILS # (AUTO) 0.1 (0.0-0.4); EOSINOPHILS % 0.8 % (0.0-6.0); HEMOGLOBIN 11.3 g/dL (12.0-16.0); LYMPHOCYTES % 7.4 % (18.0-39.1); MEAN CORPUSCULAR HEMOGLOBIN 23.9 pg (28-32); MEAN CORPUSCULAR HGB CONC 29.7 g/dL (31-35); MEAN CORPUSCULAR VOLUME 80.5 fL (81-99); MONOCYTES # (AUTO) 0.5 (0.2-0.8); MONOCYTES % 3.6 % (4.4-11.3); NEUTROPHILS # (AUTO) 11.8 (2.1-6.9); NEUTROPHILS % 87.5 % (38.7-80.0); PLATELET COUNT 328 x10e3/uL (140-360); RED BLOOD COUNT 4.72 x10e6/uL (3.6-5.1); RED CELL DISTRIBUTION WIDTH 21.3 % (11.7-14.4)
[2019-08-18 12:58] LABS: INR 0.91; PROTHROMBIN TIME 12.7 seconds (11.9-14.5)
[2019-08-18 13:59] LABS: BILIRUBIN,URINE NEGATIVE (NEGATIVE); CLARITY,URINE CLEAR (CLEAR); COLOR,URINE YELLOW (YELLOW); KETONES,URINE NEGATIVE (NEGATIVE); LEUKOCYTE ESTERASE ,URINE MODERATE (NEGATIVE); NITRITE,URINE NEGATIVE (NEGATIVE); PROTEIN,URINE DIPSTICK NEGATIVE (NEGATIVE); URINE UROBILINOGEN 0.2 mg/dL (0.2 - 1)
[2019-08-18 14:16] LABS: BACTERIA,URINE MODERATE /HPF; EPITHELIAL CELLS,URINE MANY /LPF; RENAL EPITHELIAL CELLS,URINE RARE; TRANSITIONAL EPI CELLS,URINE MODERATE
[2019-08-18 14:39] LABS: ALANINE AMINOTRANSFERASE 24 IU/L (0-55); ALBUMIN 3.9 g/dL (3.5-5.0); ALBUMIN/GLOBULIN RATIO 0.9 (0.8-2.0); ALKALINE PHOSPHATASE 87 IU/L (40-150); ANION GAP 14.7 mmol/L (8-16); BLOOD UREA NITROGEN 11 mg/dL (7-26); BUN/CREATININE RATIO 14 (6-25); CALCIUM 8.7 mg/dL (8.4-10.2); CARBON DIOXIDE 19 mmol/L (22-29); CHLORIDE 108 mmol/L (98-107); CREATININE, SERUM 0.77 mg/dL (0.57-1.11); EST GLOMERULAR FILTRATION RATE > 60 ML/MIN (60-); GLUCOSE 85 mg/dL (74-118); LIPASE 41 U/L (8-78); POTASSIUM 3.7 mmol/L (3.5-5.1); SODIUM 138 mmol/L (136-145)
[2019-08-18] MEDS ORDERED: CEFTRIAXONE SOD 1 GM VIAL IV ONE (14:45)
[2019-08-18] MEDS ORDERED: CEFTRIAXONE SOD 1 GM/NS 50 ML 50 ML IV ONE (15:00)
--- NOTE | 2019-08-18 15:22 | Diagnostic Imaging Report ---
EXAM: CT Abdomen and Pelvis WITH intravenous contrast INDICATION: Abdominal pain COMPARISON: None. TECHNIQUE: Abdomen and pelvis were scanned utilizing a multidetector helical scanner from the lung base to the pubic symphysis after administration of IV contrast. Coronal and sagittal reformations were obtained. Routine protocol was performed. Scan was performed during portal venous phase. IV CONTRAST: 100mL of Isovue 370 ORAL CONTRAST: Gastrografin RADIATION DOSE: Total DLP: 384.96 mGy*cm Dose modulation, iterative reconstruction, and/or weight based adjustment of the mA/kV was utilized to reduce the radiation dose to as low as reasonably achievable. FINDINGS: LOWER THORAX: Normal. HEPATOBILIARY: Diffuse hepatic steatosis. No focal liver lesion. No biliary ductal dilation. Unremarkable gallbladder. SPLEEN: No splenomegaly. PANCREAS: No focal masses or ductal dilatation. ADRENALS: No adrenal nodules. KIDNEYS/URETERS: No hydronephrosis, stones, or solid mass lesions. PELVIC ORGANS/BLADDER: Unremarkable. PERITONEUM / RETROPERITONEUM: No free air or fluid. LYMPH NODES: No lymphadenopathy. VESSELS: Unremarkable. GI TRACT: Status post colectomy and right lower quadrant ostomy. No abnormal bowel wall thickening. No bowel obstruction. BONES AND SOFT TISSUES: No acute osseous injury. No suspicious lytic or blastic lesions. IMPRESSION: No acute findings in the abdomen or pelvis. Diffuse hepatic steatosis. No bowel obstruction. Signed by: Scotty Hager MD on 08/18/2019 3:19 PM
[2019-08-18] MEDS ORDERED: SODIUM CHLORIDE 0.9% 50ML 50 ML ONE (20:12)
[2019-08-18] MEDS ORDERED: IOPAMIDOL 370 MG/ML 200 ML INFUS..BTL INJ ONE (20:13)
== END 2019-08-18 16:06 | disposition home or self-care (01) ==
LOC: ER 10:40
DX: R10.32 Left lower quadrant pain (principal); R10.84 Generalized abdominal pain; R11.2 Nausea with vomiting, unspecified; N39.0 Urinary tract infection, site not specified
CPT/HCPCS: 36415; 74177; 80053; 81001; 82270; 83690; 84702; 85025; 85610; 85730; 87086; 99284; J0696; J2270; J2405; J7030; Q9967